=== PATIENT | male | born 1965 | race Caucasian/White ===

== ENCOUNTER 2020-11-06 12:55 | Inpatient (IN) | payer MEDICARE ==
[2020-11-06] VITALS (15 sets, daily range): BP systolic 73–143; BP diastolic 53–103
[~2020-11-06] VITALS: Ht 182.9 cm; Wt 71.8 kg
[2020-11-06] MEDS: MIDAZOLAM 100mg/100ml NS BAG 100 ML IV PRN (13:53)
[2020-11-06] MEDS: PROPOFOL 100 ML IV PRN (13:54)
--- NOTE | 2020-11-06 17:11 | PDOC1 ---
History and Physical Date of Service: DOS: DATE: 11/06/20 TIME: 17:02 Chief Complaint: Chief Complain: Shortness of breath History of Present Illness: HPI: Patient is a 55-year-old male with past medical history of tobacco abuse, schizophrenia, alcohol abuse who presents to [facility] in [place] with shortness of breath. He was worked up at the emergency department and was found to have a sodium of 115. He was admitted for further treatments for breathing, IV antibiotics, and IV fluids. I was paged over the transfer line and had a 1-[address] Brown and stated that the patient needs for ICU care with a bench worker helper mainly due to worsening respiratory failure. Patient was on a nonrebreather and desaturating and required to be on BiPAP. ABG was obtained and showed that his pH was 7.19 and PCO2 was 113 on nonrebreather. Patient was becoming more lethargic and was needed to be intubated. Patient did arrive intubated not on any pressors and sedated on fentanyl and propofol. Reviewed labs that were done at [facility] showed sodium of 132, potassium 4.1, chloride of 94, CO2 of 37, BUN of 5, creatinine of 0.3, WBC of 11,000. Past Medical/Surgical History: PMH/PSH: Schizophrenia, tobacco abuse and alcohol abuse. Allergies: Allergies: Coded Allergies: No Known Drug Allergies (Unverified , 11/06/20) Family History: Family History: Unobtainable due to sedation and intubated Social History: Social History: Patient says he drinks about 3-4 beers a night and 2 shots of whiskey. Smokes daily about 2 packs/day. Patient does have withdrawals if he does not smoke. Current Medications: Current Medications Current Medications Fentanyl Citrate 30 ml @ 0 mls/hr CONT PRN IV SEE PROTOCOL Last administered on 11/06/20at 13:59; Start 11/06/20 at 13:45 Propofol 100 ml @ 0 mls/hr CONT PRN IV PER PROTOCOL Last administered on 11/06/20at 13:54; Start 11/06/20 at 13:45 Midazolam HCl 100 ml @ 0 mls/hr CONT PRN IV SEE PROTOCOL Last administered on 11/06/20at 13:53; Start 11/06/20 at 14:00 ROS: Review of Systems Review of System REVIEW OF SYSTEMS: GENERAL: Denies weakness SKIN: No bruising, hair changes or rashes. EYES: No blurred, double or loss of vision. NOSE AND THROAT: No history of nosebleeds, hoarseness or sore throat. HEART: No history of palpitations, chest pain or shortness of breath on exertion. LUNGS: Denies cough, hemoptysis, wheezing or shortness of breath. GASTROINTESTINAL: Denies changes in appetite, nausea, vomiting, diarrhea or constipation. GENITOURINARY: No history of frequency, urgency, hesitancy or nocturia. NEUROLOGIC: Denies history of numbness, tingling, or tremor. PSYCHIATRIC: No history of panic, anxiety or depression. ENDOCRINE: No history of heat or cold intolerance, polyuria or polydipsia. EXTREMITIES: Denies joint pain, pain on walking or stiffness. Physical Exam: Vital Signs: Vital Signs Date Time Temp Pulse Resp B/P (MAP) Pulse Ox O2 Delivery O2 Flow Rate FiO2 11/06/20 16:00 99.1 82 20 115/84 (94) 100 Ventilator 99.1 Physcial Exam: GEN: No apparent distress. Alert and oriented HEENT: Normal cephalic, atraumatic, external auditory canals are patent EYES: Extraocular muscles are intact, pupil are equally round and reactive to light and accommodation MUSCULOSKELETAL: Well developed , well nourished, good range of motion ENDOCRINE: No thyromegaly was palpated LYMPHATICS: No cervical chain or axillary nodes were noted HEMATOPOIETIC: No bruising NECK: Supple, no JVD, no thyromegaly was noted LUNGS: Clear to auscultation in all lung gotti without rhonchi or wheezing HEART: RRR, S!, S2 present. Peripheral pulses intact, no obvious murmurs noted ABDOMEN: Soft, nontender. Positive bowel sounds, no organomegaly, normal bowel sounds EXTREMITIES: Without clubbing, cyanosis, or edema. Pedal pulses intact. Negative Homans sign NEUROLOGIC: Normal speech and tone. A&O x 3, moves all extremities, no obvious focal deficits PSYCHIATRIC: Normal affect, normal mood. Stable SKIN: No ulcerations or rashes, good skin turgor, no jaundice VASCULAR: Good capillary refill, neurovascular bundle appears to be intact Labs: Labs: Reviewed in chart Images: Images CXR Impression: 1. No acute cardiopulmonary process. Negative chest CTA on 11/04/[address] on 11/04/2020 Assessment/Plan Assessment/Plan Acute hypoxic hypercapnic respiratory failure requiring intubation and sedation Acute electrolyte derangementhyponatremia improved from 115-132 Acute encephalopathy NOS Admit to ICU for further management Pulmonary consult for vent management Continue IV fluids Daily SBT trials if able CIWA protocol for concerns of alcohol withdrawal Lovenox for DVT prophylaxis Protonix GI prophylaxis N.p.o. Full code Discussed with RN and SW Disposition continue ICU care Surrogate decision maker is unknown A total of 65 minutes of critical care time was spent in reviewing chart, labs, and images. Discussed with RN and SW. Justifications for Admission Other Justification TOREY STAFFORD MD Nov 06, 2020 17:11
[2020-11-06] MEDS ORDERED: PIP/TAZO PER PHARMACY MC PRN (18:00)
--- NOTE | 2020-11-06 18:05 | CONS ---
DATE OF CONSULTATION: PULMONARY CONSULTATION ATTENDING PHYSICIAN: Francisco Coker MD. REASON FOR CONSULTATION: Respiratory failure. HISTORY OF PRESENT ILLNESS: The patient is a 55-year-old male with past medical history of heavy tobacco use up to 2 packs per day, schizophrenia, alcohol abuse, who drinks regularly. He initially presented to [facility] in [place] with reports of falling at home. He even hit his head. His CT head was negative there. He was noted to have a sodium of 115. The patient was treated with IV antibiotics and IV fluids. It did result in improvement in his sodium. However, today, he was noted to have progressive dyspnea and tachycardia. The patient was noted to have worsening arterial blood gases with a pH of 7.19, pCO2 of 113, on a nonrebreather mask. Bicarbonate level was 43. PO2 was 103. He was intubated and transferred to our facility in the ICU. I have done the consultation via telemedicine. He is currently intubated and sedated. His blood pressure has been labile between high to low. Propofol was initially initiated, but was stopped due to low blood pressure. I have reviewed his chest x-ray from [facility], which was consistent with hyperinflation and COPD. He had a CTA chest, no evidence of pulmonary embolism, but there were faint infiltrates seen on the right lower lobe. PAST MEDICAL HISTORY: Significant for schizophrenia, history of tobacco abuse, likely COPD and alcohol abuse. PAST SURGICAL HISTORY: No recent surgery. ALLERGIES: None. FAMILY HISTORY: Unobtainable. SOCIAL HISTORY: Drinks about 3-4 beers a night and 2 shots of whiskey. Smokes 2 packs of cigarettes a day. MEDICATIONS: Reviewed as listed in the MRAD. REVIEW OF SYSTEMS: Unable to obtain from the patient. PHYSICAL EXAMINATION: GENERAL: He is intubated and sedated. Exam was done via telemedicine. VITAL SIGNS: His blood pressure is currently 115 systolic, T-max of 99.1. Pulse ox is 99%. He is in sync with the ventilator. No obvious paradoxical breathing. SKIN: No skin rash. LABORATORY DATA: From [place] revealed sodium of 132, potassium 4.1, chloride 94, BUN 5, creatinine 0.3, bicarbonate of 37. AST, ALT normal. White cell count 11.1, hemoglobin 14.1, platelets results were not available. IMPRESSION: 1. Ljikq-ns-vzpqecm hypercapnic respiratory failure secondary to multifactorial etiologies including acute toxic encephalopathy, worsening chronic obstructive pulmonary disease with hypercapnia and likely contributed by hyponatremia. 2. Long history of tobacco use up to 2 packs per day. Has chronic hypercapnia, likely has severe chronic obstructive pulmonary disease. Chest x-ray has shown severely hyperinflated lungs. 3. Alcohol abuse and possibility of alcohol withdrawal would certainly be in the differential diagnosis. 4. Underlying schizophrenia. 5. Abnormal CT chest with faint patchy interstitial infiltrates in the right lower lobe. Likely aspiration pneumonia. He has a low-grade fever. We will cover with empiric antibiotics. 6. Hyponatremia, likely secondary to alcoholism. It did improve over a period of days. RECOMMENDATIONS: 1. We will continue with present assist control mode. Follow ABGs and make necessary adjustments. 2. Add empiric antibiotics. 3. We will order an echocardiogram. 4. Watch for alcohol withdrawal symptoms. 5. Continue sedation and p.r.n. narcotics. 6. The patient was COVID-19 negative at [facility]. 7. Follow sodium closely. 8. Enteral nutrition. 9. Stress ulcer prophylaxis. 10. DVT prophylaxis. 11. We will watch his respiratory status once his acid base status has improved and consider weaning trial when appropriate. 12. Discussed with RN and RT. We will follow along with you. Chart reviewed, labs reviewed, imaging studies reviewed. Critical care time 40 minutes. YANE AVILA MD DR: SOMMER/daryl JOB#: [id number] / [id number]
[2020-11-06] MEDS: PIPERACILLIN/TAZOBACTAM 3.375 GM in IV NORMAL SALINE 50ML 50 ML IV SCH ×2 (18:11→23:27)
[2020-11-06] MEDS: IV NORMAL SALINE 1000ML BAG 1,000 ML IV SCH (18:11)
--- NOTE | 2020-11-06 18:18 | RAD ---
EXAM: XR CHEST 1V 11/06/2020 2:21 PM CLINICAL INDICATION: ET tube placement COMPARISON: Chest radiograph 11/06/2020 TECHNIQUE: AP semiupright view of the chest FINDINGS: An endotracheal tube terminates approximately 7.5 cm above the yadira, similar to prior ex am. A new nasogastric tube courses below the diaphragm and terminates out of view. The heart and medi astinum are normal. Lungs are well-expanded and clear. No pleural effusion or pneumothorax. No acute osseous abnormality. IMPRESSION: New nasogastric tube courses below the diaphragm. Unchanged endotracheal tube. Electronically signed by: Daja Carpenter MD (11/06/2020 6:16 PM) [id number]
[2020-11-06] MEDS ORDERED: FAMOTIDINE 20 MG TABLET. PO SCH (21:00)
[2020-11-07] VITALS (23 sets, daily range): BP systolic 102–150; BP diastolic 65–96
[2020-11-07] MEDS: MIDAZOLAM 100mg/100ml NS BAG 100 ML IV PRN ×3 (00:45→22:33)
--- NOTE | 2020-11-07 04:25 | RAD ---
EXAM: AP View of the chest DATE: 11/07/2020 4:05 AM INDICATION: Dyspnea, respiratory failure COMPARISON: 11/06/2020 FINDINGS: ET tube tip terminates approximately 4 cm above the yadira. Enteric tube extends beyond the diaphragm tip is not visualized. Heart is not enlarged. Aorta is tortuous. Left lung base airspace likely consolidative process such a s pneumonia, progressed compared to 11/06/2020. Small left pleural effusion. No pneumothorax. IMPRESSION: Left lung base airspace opacities likely consolidative process such as pneumonia. Small left pleural effusion. Electronically signed by: Dewey Hernandez MD (11/07/2020 4:23 AM) RICHY
[2020-11-07] MEDS: PIPERACILLIN/TAZOBACTAM 3.375 GM in IV NORMAL SALINE 50ML 50 ML IV SCH ×4 (06:13→23:48)
[2020-11-07 07:07] LABS: BASO % 0 % (0-3); EOS # 0.1 x10^3/uL (0.0-0.7); EOS % 1 % (0-3); HEMATOCRIT 37.3 % (39.0-53.0); HEMOGLOBIN 12.2 g/dL (13.0-17.5); LYMPH % 10 % (24-48); MEAN CORPUSCULAR HEMOGLOBIN 32 pg (25-35); MEAN CORPUSCULAR HGB CONC 33 g/dL (31-37); MEAN CORPUSCULAR VOLUME 98 fL (79-100); MONO % 18 % (0-9); NEUT # 7.6 x10^3/uL (1.8-7.7); NEUT % 71 % (31-73); PLATELET COUNT 197 x10^3/uL (140-400); RED BLOOD COUNT 3.82 x10^6/uL (4.30-5.70); RED CELL DISTRIBUTION WIDTH 12.8 % (11.5-14.5); WHITE BLOOD COUNT 10.8 x10^3/uL (4.0-11.0)
[2020-11-07 07:20] LABS: ALBUMIN 2.1 g/dL (3.4-5.0); ALBUMIN/GLOBULIN RATIO 0.8 (1.0-1.7); CALCIUM 7.9 mg/dL (8.5-10.1); CREATININE 0.4 mg/dL (0.7-1.3); GFR 222.5; POTASSIUM 3.4 mmol/L (3.5-5.1); TOTAL BILIRUBIN 0.7 mg/dL (0.2-1.0); TOTAL PROTEIN 4.8 g/dL (6.4-8.2)
[2020-11-07] MEDS: IV NORMAL SALINE 1000ML BAG 1,000 ML IV SCH ×3 (07:20→22:30)
[2020-11-07 07:57] LABS: BASE EXCESS ABG 3 mmol/L (-3-3); HCO3 ABG 30 mmol/L (21-28); PCO2 ABG 56 mmHg (35-46); PO2 ABG 87 mmHg (75-108); SAT O2 ABG 96 % (92-99)
[2020-11-07 07:59] LABS: FIO2 ABG 70
[2020-11-07 09:11] LABS: % BANDS 3 % (0-9); % LYMPHS 9 % (24-48); % MONOS 5 % (0-10); % SEGS 83 % (35-66)
[2020-11-07 09:12] LABS: PLT ESTIMATE ADEQUATE (ADEQUATE)
[2020-11-07] MEDS: PROPOFOL 100 ML IV PRN (10:08)
--- NOTE | 2020-11-07 10:52 | PDOC ---
[employer] PROGRESS NOTE Date of Service DOS: DATE: 11/07/20 TIME: 10:51 Chief Complaint Chief Complaint Acute hypoxic hypercapnic respiratory failure requiring intubation and sedation COPD Hyponatremia Acute encephalopathy NOS Schizophrenia Tobacco abuse Alcohol abuse History of Present Illness History of Present Illness 11/07/2020 Patient seen and examined in the ICU He is intubated AC/16/500/70 percent with 5 of PEEP He is in mitts for his own safety He has a Shi to bedside drainage On IV Zosyn Sedated with Versed fentanyl and propofol Chart reviewed Discussed with RN Discussed with case management He is critically ill Vitals/I&O Vitals/I&O: Vital Signs Date Time Temp Pulse Resp B/P (MAP) Pulse Ox O2 Delivery O2 Flow Rate FiO2 11/07/20 10:00 69 16 126/87 (100) 100 Ventilator 11/07/20 08:00 98.1 98.1 I & O 11/06/20 11/06/20 11/07/20 15:00 23:00 07:00 Intake Total 0 ml 716.64 ml 2025.8 ml Output Total 100 ml 715 ml 165 ml Balance -100 ml 1.64 ml 1860.8 ml Physical Exam General: Other (Sedated intubated) Heart: Other (Tachycardic) Lungs: Wheezing, Crackles Abdomen: Soft Extremities: No clubbing, Other (He has mitts on) Skin: No rashes Labs Labs: Laboratory Tests Test 11/07/20 06:45 11/07/20 07:40 White Blood Count 10.8 x10^3/uL (4.0-11.0) Red Blood Count 3.82 x10^6/uL (4.30-5.70) Hemoglobin 12.2 g/dL (13.0-17.5) Hematocrit 37.3 % (39.0-53.0) Mean Corpuscular Volume 98 fL (79-100) Mean Corpuscular Hemoglobin 32 pg (25-35) Mean Corpuscular Hemoglobin Concent 33 g/dL (31-37) Red Cell Distribution Width 12.8 % (11.5-14.5) Platelet Count 197 x10^3/uL (140-400) Neutrophils (%) (Auto) 71 % (31-73) Lymphocytes (%) (Auto) 10 % (24-48) Monocytes (%) (Auto) 18 % (0-9) Eosinophils (%) (Auto) 1 % (0-3) Basophils (%) (Auto) 0 % (0-3) Neutrophils # (Auto) 7.6 x10^3/uL (1.8-7.7) Lymphocytes # (Auto) 1.0 x10^3/uL (1.0-4.8) Monocytes # (Auto) 2.0 x10^3/uL (0.0-1.1) Eosinophils # (Auto) 0.1 x10^3/uL (0.0-0.7) Basophils # (Auto) 0.0 x10^3/uL (0.0-0.2) Segmented Neutrophils % 83 % (35-66) Band Neutrophils % 3 % (0-9) Lymphocytes % 9 % (24-48) Monocytes % 5 % (0-10) Platelet Estimate Adequate (ADEQUATE) Sodium Level 136 mmol/L (136-145) Potassium Level 3.4 mmol/L (3.5-5.1) Chloride Level 100 mmol/L (98-107) Carbon Dioxide Level 34 mmol/L (21-32) Anion Gap 2 (6-14) Blood Urea Nitrogen 9 mg/dL (8-26) Creatinine 0.4 mg/dL (0.7-1.3) Estimated GFR (Cockcroft-Gault) 222.5 BUN/Creatinine Ratio 23 (6-20) Glucose Level 89 mg/dL (70-99) Calcium Level 7.9 mg/dL (8.5-10.1) Total Bilirubin 0.7 mg/dL (0.2-1.0) Aspartate Amino Transf (AST/SGOT) 22 U/L (15-37) Alanine Aminotransferase (ALT/SGPT) 17 U/L (16-63) Alkaline Phosphatase 45 U/L (46-116) Total Protein 4.8 g/dL (6.4-8.2) Albumin 2.1 g/dL (3.4-5.0) Albumin/Globulin Ratio 0.8 (1.0-1.7) Amylase Level 22 U/L (25-115) Lipase 30 U/L (73-393) O2 Saturation 96 % (92-99) Arterial Blood pH 7.35 (7.35-7.45) Arterial Blood pCO2 at Patient Temp 56 mmHg (35-46) Arterial Blood pO2 at Patient Temp 87 mmHg (75-108) Arterial Blood HCO3 30 mmol/L (21-28) Arterial Blood Base Excess 3 mmol/L (-3-3) FiO2 70 Review of Systems Review of Systems: Unable to obtain he is intubated Assessment and Plan Assessmemt and Plan Acute hypoxic hypercapnic respiratory failure requiring intubation and sedation COPD Hyponatremia Acute encephalopathy NOS Tobacco abuse Schizophrenia Plan ICU monitoring Vent weaning IV antibiotics Duo nebs IV steroids CIWA protocol DVT prophylaxis Home meds GI prophylaxis with Protonix He is critically ill Appreciate pulmonary input CC time 31 minutes Per pulmonary recommendations please see the following; 1. Zjguz-ej-ooramun hypercapnic respiratory failure secondary to multifactorial etiologies including acute toxic encephalopathy, worsening chronic obstructive pulmonary disease with hypercapnia and likely contributed by hyponatremia. 2. Long history of tobacco use up to 2 packs per day. Has chronic hypercapnia, likely has severe chronic obstructive pulmonary disease. Chest x-ray has shown severely hyperinflated lungs. 3. Alcohol abuse and possibility of alcohol withdrawal would certainly be in the differential diagnosis. 4. Underlying schizophrenia. 5. Abnormal CT chest with faint patchy interstitial infiltrates in the right lower lobe. Likely aspiration pneumonia. He has a low-grade fever. We will cover with empiric antibiotics. 6. Hyponatremia, likely secondary to alcoholism. It did improve over a period of days. RECOMMENDATIONS: 1. We will continue with present assist control mode. Follow ABGs and make necessary adjustments. 2. Add empiric antibiotics. 3. We will order an echocardiogram. 4. Watch for alcohol withdrawal symptoms. 5. Continue sedation and p.r.n. narcotics. 6. The patient was COVID-19 negative at [facility]. 7. Follow sodium closely. 8. Enteral nutrition. 9. Stress ulcer prophylaxis. 10. DVT prophylaxis. 11. We will watch his respiratory status once his acid base status has improved and consider weaning trial when appropriate. 12. Discussed with RN and RT. We will follow along with you. Chart reviewed, labs reviewed, imaging studies reviewed. Comment Review of Relevant I have reviewed the following items kye (where applicable) has been applied. Medications: Current Medications Medications (Trade) Dose Ordered Sig/Jean Carlos Route PRN Reason Start Time Stop Time Status Last Admin Dose Admin Fentanyl Citrate 30 ml @ 0 mls/hr CONT PRN IV SEE PROTOCOL 11/06/20 13:45 11/07/20 09:17 Propofol 100 ml @ 0 mls/hr CONT PRN IV PER PROTOCOL 11/06/20 13:45 11/07/20 10:08 Midazolam HCl 100 ml @ 0 mls/hr CONT PRN IV SEE PROTOCOL 11/06/20 14:00 11/07/20 00:45 Famotidine (Pepcid) 20 mg QHS PO 11/06/20 21:00 11/06/20 23:11 Sodium Chloride 1,000 ml @ 75 mls/hr [id number] IV 11/06/20 18:00 11/06/20 18:11 Piperacillin Sod/ Tazobactam Sod 3.375 gm/Sodium Chloride 50 ml @ 100 mls/hr Q6HRS IV 11/06/20 18:00 11/07/20 06:13 Justifications for Admission Other Justification NIKKO BROWN III DO Nov 07, 2020 10:51
--- NOTE | 2020-11-07 11:35 | PDOC ---
PULMONARY PROGRESS NOTES DATE: 11/07/20 TIME: 11:28 Subjective pt. is sedated on Vent A/C mode : 70% and PEEP 5 no overnight concerns Vitals Vital Signs Date Time Temp Pulse Resp B/P (MAP) Pulse Ox O2 Delivery O2 Flow Rate FiO2 11/07/20 10:00 69 16 126/87 (100) 100 Ventilator 11/07/20 08:00 98.1 98.1 Comments intubated/sedated Lungs: Clear Cardiovascular: S1 Abdomen: Soft, Non-tender Extremities: No Edema Skin: Warm Labs Laboratory Tests Test 11/07/20 06:45 11/07/20 07:40 White Blood Count 10.8 x10^3/uL (4.0-11.0) Red Blood Count 3.82 x10^6/uL (4.30-5.70) Hemoglobin 12.2 g/dL (13.0-17.5) Hematocrit 37.3 % (39.0-53.0) Mean Corpuscular Volume 98 fL (79-100) Mean Corpuscular Hemoglobin 32 pg (25-35) Mean Corpuscular Hemoglobin Concent 33 g/dL (31-37) Red Cell Distribution Width 12.8 % (11.5-14.5) Platelet Count 197 x10^3/uL (140-400) Neutrophils (%) (Auto) 71 % (31-73) Lymphocytes (%) (Auto) 10 % (24-48) Monocytes (%) (Auto) 18 % (0-9) Eosinophils (%) (Auto) 1 % (0-3) Basophils (%) (Auto) 0 % (0-3) Neutrophils # (Auto) 7.6 x10^3/uL (1.8-7.7) Lymphocytes # (Auto) 1.0 x10^3/uL (1.0-4.8) Monocytes # (Auto) 2.0 x10^3/uL (0.0-1.1) Eosinophils # (Auto) 0.1 x10^3/uL (0.0-0.7) Basophils # (Auto) 0.0 x10^3/uL (0.0-0.2) Segmented Neutrophils % 83 % (35-66) Band Neutrophils % 3 % (0-9) Lymphocytes % 9 % (24-48) Monocytes % 5 % (0-10) Platelet Estimate Adequate (ADEQUATE) Sodium Level 136 mmol/L (136-145) Potassium Level 3.4 mmol/L (3.5-5.1) Chloride Level 100 mmol/L (98-107) Carbon Dioxide Level 34 mmol/L (21-32) Anion Gap 2 (6-14) Blood Urea Nitrogen 9 mg/dL (8-26) Creatinine 0.4 mg/dL (0.7-1.3) Estimated GFR (Cockcroft-Gault) 222.5 BUN/Creatinine Ratio 23 (6-20) Glucose Level 89 mg/dL (70-99) Calcium Level 7.9 mg/dL (8.5-10.1) Total Bilirubin 0.7 mg/dL (0.2-1.0) Aspartate Amino Transf (AST/SGOT) 22 U/L (15-37) Alanine Aminotransferase (ALT/SGPT) 17 U/L (16-63) Alkaline Phosphatase 45 U/L (46-116) Total Protein 4.8 g/dL (6.4-8.2) Albumin 2.1 g/dL (3.4-5.0) Albumin/Globulin Ratio 0.8 (1.0-1.7) Amylase Level 22 U/L (25-115) Lipase 30 U/L (73-393) O2 Saturation 96 % (92-99) Arterial Blood pH 7.35 (7.35-7.45) Arterial Blood pCO2 at Patient Temp 56 mmHg (35-46) Arterial Blood pO2 at Patient Temp 87 mmHg (75-108) Arterial Blood HCO3 30 mmol/L (21-28) Arterial Blood Base Excess 3 mmol/L (-3-3) FiO2 70 Laboratory Tests Test 11/07/20 06:45 11/07/20 07:40 White Blood Count 10.8 x10^3/uL (4.0-11.0) Red Blood Count 3.82 x10^6/uL (4.30-5.70) Hemoglobin 12.2 g/dL (13.0-17.5) Hematocrit 37.3 % (39.0-53.0) Mean Corpuscular Volume 98 fL (79-100) Mean Corpuscular Hemoglobin 32 pg (25-35) Mean Corpuscular Hemoglobin Concent 33 g/dL (31-37) Red Cell Distribution Width 12.8 % (11.5-14.5) Platelet Count 197 x10^3/uL (140-400) Neutrophils (%) (Auto) 71 % (31-73) Lymphocytes (%) (Auto) 10 % (24-48) Monocytes (%) (Auto) 18 % (0-9) Eosinophils (%) (Auto) 1 % (0-3) Basophils (%) (Auto) 0 % (0-3) Neutrophils # (Auto) 7.6 x10^3/uL (1.8-7.7) Lymphocytes # (Auto) 1.0 x10^3/uL (1.0-4.8) Monocytes # (Auto) 2.0 x10^3/uL (0.0-1.1) Eosinophils # (Auto) 0.1 x10^3/uL (0.0-0.7) Basophils # (Auto) 0.0 x10^3/uL (0.0-0.2) Segmented Neutrophils % 83 % (35-66) Band Neutrophils % 3 % (0-9) Lymphocytes % 9 % (24-48) Monocytes % 5 % (0-10) Platelet Estimate Adequate (ADEQUATE) Sodium Level 136 mmol/L (136-145) Potassium Level 3.4 mmol/L (3.5-5.1) Chloride Level 100 mmol/L (98-107) Carbon Dioxide Level 34 mmol/L (21-32) Anion Gap 2 (6-14) Blood Urea Nitrogen 9 mg/dL (8-26) Creatinine 0.4 mg/dL (0.7-1.3) Estimated GFR (Cockcroft-Gault) 222.5 BUN/Creatinine Ratio 23 (6-20) Glucose Level 89 mg/dL (70-99) Calcium Level 7.9 mg/dL (8.5-10.1) Total Bilirubin 0.7 mg/dL (0.2-1.0) Aspartate Amino Transf (AST/SGOT) 22 U/L (15-37) Alanine Aminotransferase (ALT/SGPT) 17 U/L (16-63) Alkaline Phosphatase 45 U/L (46-116) Total Protein 4.8 g/dL (6.4-8.2) Albumin 2.1 g/dL (3.4-5.0) Albumin/Globulin Ratio 0.8 (1.0-1.7) Amylase Level 22 U/L (25-115) Lipase 30 U/L (73-393) O2 Saturation 96 % (92-99) Arterial Blood pH 7.35 (7.35-7.45) Arterial Blood pCO2 at Patient Temp 56 mmHg (35-46) Arterial Blood pO2 at Patient Temp 87 mmHg (75-108) Arterial Blood HCO3 30 mmol/L (21-28) Arterial Blood Base Excess 3 mmol/L (-3-3) FiO2 70 Comments CXR IMPRESSION: Left lung base airspace opacities likely consolidative process such as pneumonia. Small left pleural effusion. Impression . IMPRESSION: 1. Jhqaz-hw-iwbgany hypercapnic respiratory failure secondary to multifactorial etiologies including acute toxic encephalopathy, worsening chronic obstructive pulmonary disease with hypercapnia and likely contributed by hyponatremia. 2. Long history of tobacco use up to 2 packs per day. Has chronic hypercapnia, likely has severe chronic obstructive pulmonary disease. Chest x-ray has shown severely hyperinflated lungs. 3. Alcohol abuse and possibility of alcohol withdrawal would certainly be in the differential diagnosis. 4. Underlying schizophrenia. 5. Abnormal CT chest with faint patchy interstitial infiltrates in the right lower lobe. Likely aspiration pneumonia. He has a low-grade fever. We will cover with empiric antibiotics. 6. Hyponatremia, likely secondary to alcoholism. It did improve over a period of days. Plan . RECOMMENDATIONS: Continue Vent support Fi02 70% and PEEP of 5 Follow CXR/ABG -- reduce Fi02 to 60% Continue zosyn Await Echo results CIWA protocol once off sedation Consult driver manager for TF recs DVT/GI PPX D/W RN and RT Critical Care Time [id number] YANE MOLINA MD Nov 07, 2020 11:35
--- NOTE | 2020-11-07 15:13 | NUR ---
SS following for discharge planning. SS reviewed pt chart and discussed with pt RN. Pt is from home with spouse and is currently on the vent at 70%. COVID19 negative. Pt on IV Zosyn. SS received request to contact pt's father, Sohan, . SS contacted pt's father and left voicemail. SS will continue to follow for discharge planning.
[2020-11-07] MEDS ORDERED: PALI117D IM (16:24)
[2020-11-07] MEDS: FAMOTIDINE 20 MG TABLET. PO SCH (21:16)
[2020-11-07] MEDS: ENOXAPARIN 40 MG/0.4 ML SYRINGE. SQ SCH (21:17)
[2020-11-08] VITALS (24 sets, daily range): BP systolic 102–164; BP diastolic 72–114
[2020-11-08] MEDS: PIPERACILLIN/TAZOBACTAM 3.375 GM in IV NORMAL SALINE 50ML 50 ML IV SCH ×4 (06:06→23:35)
[2020-11-08] MEDS: PROPOFOL 100 ML IV PRN ×2 (07:16→15:31)
[2020-11-08] MEDS: IV NORMAL SALINE 1000ML BAG 1,000 ML IV SCH ×2 (07:37→17:49)
[2020-11-08 08:54] LABS: BASE EXCESS ABG 2 mmol/L (-3-3); HCO3 ABG 28 mmol/L (21-28); PCO2 ABG 50 mmHg (35-46); PO2 ABG 130 mmHg (75-108); SAT O2 ABG 98 % (92-99)
--- NOTE | 2020-11-08 09:00 | PDOC ---
[facility] [facility] PROGRESS NOTE Date of Service DOS: DATE: 11/08/20 TIME: 08:59 Chief Complaint Chief Complaint Acute hypoxic hypercapnic respiratory failure requiring intubation and sedation COPD Hyponatremia Acute encephalopathy NOS Schizophrenia Tobacco abuse Alcohol abuse History of Present Illness History of Present Illness 11/08/2020 Patient seen and examined in the ICU He remains ventilated Assist-control/16/500 with 60% FiO2 and 5 of PEEP Sedated with propofol Versed and fentanyl Has NG feed running Discussed with RN Chart reviewed He remains critically ill 11/07/2020 Patient seen and examined in the ICU He is intubated AC/16/500/70 percent with 5 of PEEP He is in mitts for his own safety He has a Shi to bedside drainage On IV Zosyn Sedated with Versed fentanyl and propofol Chart reviewed Discussed with RN Discussed with case management He is critically ill Vitals/I&O Vitals/I&O: Vital Signs Date Time Temp Pulse Resp B/P (MAP) Pulse Ox O2 Delivery O2 Flow Rate FiO2 11/08/20 08:38 100 Ventilator 11/08/20 06:00 66 16 155/104 (121) 11/08/20 04:00 98.8 98.8 I & O 11/07/20 11/07/20 11/08/20 15:00 23:00 07:00 Intake Total 150 ml 1482.35 ml 2478.1 ml Output Total 80 ml 540 ml 235 ml Balance 70 ml 942.35 ml 2243.1 ml Physical Exam General: Other (Sedated intubated) Heart: Other (Tachycardic) Lungs: Clear Abdomen: Soft Extremities: No clubbing, Other (He has mitts on) Skin: No rashes Assessment and Plan Assessmemt and Plan Acute hypoxic hypercapnic respiratory failure requiring intubation and sedation COPD Hyponatremia Acute encephalopathy NOS Tobacco abuse Schizophrenia Plan ICU monitoring Vent weaning IV antibiotics NG feeds Continue sedation with propofol and Versed Duo nebs IV steroids CIWA protocol DVT prophylaxis Home meds GI prophylaxis with Protonix He remains critically ill Appreciate pulmonary input CC time 33 minutes Per pulmonary recommendations from yesterday please see the following; 1. [id number] hypercapnic respiratory failure secondary to multifactorial etiologies including acute toxic encephalopathy, worsening chronic obstructive pulmonary disease with hypercapnia and likely contributed by hyponatremia. 2. Long history of tobacco use up to 2 packs per day. Has chronic hypercapnia, likely has severe chronic obstructive pulmonary disease. Chest x-ray has shown severely hyperinflated lungs. 3. Alcohol abuse and possibility of alcohol withdrawal would certainly be in the differential diagnosis. 4. Underlying schizophrenia. 5. Abnormal CT chest with faint patchy interstitial infiltrates in the right lower lobe. Likely aspiration pneumonia. He has a low-grade fever. We will cover with empiric antibiotics. 6. Hyponatremia, likely secondary to alcoholism. It did improve over a period of days. RECOMMENDATIONS: 1. We will continue with present assist control mode. Follow ABGs and make necessary adjustments. 2. Add empiric antibiotics. 3. We will order an echocardiogram. 4. Watch for alcohol withdrawal symptoms. 5. Continue sedation and p.r.n. narcotics. 6. The patient was COVID-19 negative at [facility]. 7. Follow sodium closely. 8. Enteral nutrition. 9. Stress ulcer prophylaxis. 10. DVT prophylaxis. 11. We will watch his respiratory status once his acid base status has improved and consider weaning trial when appropriate. 12. Discussed with RN and RT. We will follow along with you. Chart reviewed, Comment Review of Relevant I have reviewed the following items kye (where applicable) has been applied. Medications: Current Medications Medications (Trade) Dose Ordered Sig/Jean Carlos Route PRN Reason Start Time Stop Time Status Last Admin Dose Admin Enoxaparin Sodium (Lovenox 40mg Syringe) 40 mg Q24H SQ 11/07/20 21:00 11/07/20 21:17 Famotidine (Pepcid) 20 mg BID PO 11/07/20 21:00 11/07/20 21:16 Justifications for Admission Other Justification NIKKO BROWN III DO Nov 08, 2020 09:00
[2020-11-08 09:20] LABS: FIO2 ABG 60
[2020-11-08] MEDS: FAMOTIDINE 20 MG TABLET. PO SCH ×2 (09:39→21:12)
[2020-11-08] MEDS: MIDAZOLAM 100mg/100ml NS BAG 100 ML IV PRN (09:41)
--- NOTE | 2020-11-08 10:55 | PDOC ---
PULMONARY PROGRESS NOTES DATE: 11/08/20 TIME: 10:53 Subjective pt. is sedated on Vent A/C mode : 50% and PEEP 5 Afebrile no overnight concerns Vitals Vital Signs Date Time Temp Pulse Resp B/P (MAP) Pulse Ox O2 Delivery O2 Flow Rate FiO2 11/08/20 10:00 62 22 120/84 (96) 100 Ventilator 11/08/20 08:00 98.1 98.1 Comments intubated/sedated Lungs: Clear Cardiovascular: S1 Abdomen: Soft, Non-tender Extremities: No Edema Skin: Warm Labs Laboratory Tests Test 11/07/20 06:45 11/07/20 07:40 11/08/20 08:40 White Blood Count 10.8 x10^3/uL (4.0-11.0) Red Blood Count 3.82 x10^6/uL (4.30-5.70) Hemoglobin 12.2 g/dL (13.0-17.5) Hematocrit 37.3 % (39.0-53.0) Mean Corpuscular Volume 98 fL (79-100) Mean Corpuscular Hemoglobin 32 pg (25-35) Mean Corpuscular Hemoglobin Concent 33 g/dL (31-37) Red Cell Distribution Width 12.8 % (11.5-14.5) Platelet Count 197 x10^3/uL (140-400) Neutrophils (%) (Auto) 71 % (31-73) Lymphocytes (%) (Auto) 10 % (24-48) Monocytes (%) (Auto) 18 % (0-9) Eosinophils (%) (Auto) 1 % (0-3) Basophils (%) (Auto) 0 % (0-3) Neutrophils # (Auto) 7.6 x10^3/uL (1.8-7.7) Lymphocytes # (Auto) 1.0 x10^3/uL (1.0-4.8) Monocytes # (Auto) 2.0 x10^3/uL (0.0-1.1) Eosinophils # (Auto) 0.1 x10^3/uL (0.0-0.7) Basophils # (Auto) 0.0 x10^3/uL (0.0-0.2) Segmented Neutrophils % 83 % (35-66) Band Neutrophils % 3 % (0-9) Lymphocytes % 9 % (24-48) Monocytes % 5 % (0-10) Platelet Estimate Adequate (ADEQUATE) Sodium Level 136 mmol/L (136-145) Potassium Level 3.4 mmol/L (3.5-5.1) Chloride Level 100 mmol/L (98-107) Carbon Dioxide Level 34 mmol/L (21-32) Anion Gap 2 (6-14) Blood Urea Nitrogen 9 mg/dL (8-26) Creatinine 0.4 mg/dL (0.7-1.3) Estimated GFR (Cockcroft-Gault) 222.5 BUN/Creatinine Ratio 23 (6-20) Glucose Level 89 mg/dL (70-99) Calcium Level 7.9 mg/dL (8.5-10.1) Total Bilirubin 0.7 mg/dL (0.2-1.0) Aspartate Amino Transf (AST/SGOT) 22 U/L (15-37) Alanine Aminotransferase (ALT/SGPT) 17 U/L (16-63) Alkaline Phosphatase 45 U/L (46-116) Total Protein 4.8 g/dL (6.4-8.2) Albumin 2.1 g/dL (3.4-5.0) Albumin/Globulin Ratio 0.8 (1.0-1.7) Amylase Level 22 U/L (25-115) Lipase 30 U/L (73-393) O2 Saturation 96 % (92-99) 98 % (92-99) Arterial Blood pH 7.35 (7.35-7.45) 7.36 (7.35-7.45) Arterial Blood pCO2 at Patient Temp 56 mmHg (35-46) 50 mmHg (35-46) Arterial Blood pO2 at Patient Temp 87 mmHg (75-108) 130 mmHg (75-108) Arterial Blood HCO3 30 mmol/L (21-28) 28 mmol/L (21-28) Arterial Blood Base Excess 3 mmol/L (-3-3) 2 mmol/L (-3-3) FiO2 70 60 Laboratory Tests Test 11/08/20 08:40 O2 Saturation 98 % (92-99) Arterial Blood pH 7.36 (7.35-7.45) Arterial Blood pCO2 at Patient Temp 50 mmHg (35-46) Arterial Blood pO2 at Patient Temp 130 mmHg (75-108) Arterial Blood HCO3 28 mmol/L (21-28) Arterial Blood Base Excess 2 mmol/L (-3-3) FiO2 60 Medications Active Scripts Medications Dose Route/Sig Max Daily Dose Days Date Category Invsolitario Sustenna (Paliperidone Palmitate) 117 Mg/0.75 Ml Disp.syrin 0 IM QMONTH 30 11/07/20 Reported Comments CXR IMPRESSION: Left lung base airspace opacities likely consolidative process such as pneumonia. Small left pleural effusion. Impression . IMPRESSION: 1. Wtrsd-xx-htvwusl hypercapnic respiratory failure secondary to multifactorial etiologies including acute toxic encephalopathy, worsening chronic obstructive pulmonary disease with hypercapnia and likely contributed by hyponatremia. 2. Long history of tobacco use up to 2 packs per day. Has chronic hypercapnia, likely has severe chronic obstructive pulmonary disease. Chest x-ray has shown severely hyperinflated lungs. 3. Alcohol abuse and possibility of alcohol withdrawal would certainly be in the differential diagnosis. 4. Underlying schizophrenia. 5. Abnormal CT chest with faint patchy interstitial infiltrates in the right lower lobe. Likely aspiration pneumonia. 6. Hyponatremia, likely secondary to alcoholism--resolved Plan . RECOMMENDATIONS: Continue Vent support Fi02 50% and PEEP of 5 Proceed with sedation vacation, anticipate pressure support trial in next 48 hours Follow CXR/ABG -- reduce Fi02 to 40% Continue zosyn for full course CIWA protocol once off sedation Consult rotoformer backtender for TF recs DVT/GI PPX D/W RN and RT Critical Care Time [id number] YANE MOLINA MD Nov 08, 2020 10:55
--- NOTE | 2020-11-08 10:57 | NUR ---
SS following up with discharge planning. SS reviewed pt chart and discussed with pt RN. Pt is currently on the vent at 50%. COVID19 negative. SS spoke with pt's father, Sohan, and answered questions about applying for Medicaid. Pt's father reported that he and pt's mother are pt's legal guardians. Pt's RN notified. SS will continue to follow for discharge planning.
[2020-11-08 12:31] LABS: CALCIUM 7.9 mg/dL (8.5-10.1); CREATININE 0.5 mg/dL (0.7-1.3); MAGNESIUM 1.5 mg/dL (1.8-2.4); POTASSIUM 3.4 mmol/L (3.5-5.1)
--- NOTE | 2020-11-08 14:27 | CARD ---
MR#: [id number] Date of Study: 11/08/2020 Ordering Physician: YANE AVILA, Referring Physician: YANE AVILA Tech: Sarah Day NKECHI APPROVED REPORT EXAM: Two-dimensional and M-mode echocardiogram with Doppler and color Doppler. Other Information Quality : Fair INDICATION Congestive Heart Failure 2D DIMENSIONS RVDd2.7 (2.9-3.5cm)Left Atrium(2D)2.3 (1.6-4.0cm) IVSd1.1 (0.7-1.1cm)Aortic Root(2D)3.2 (2.0-3.7cm) LVDd5.0 (3.9-5.9cm)LVOT Diameter2.0 (1.8-2.4cm) PWd1.0 (0.7-1.1cm)LVDs3.6 (2.5-4.0cm) FS (%) 27.7 %SV63.4 ml LVEF(%)53.4 (>50%) Aortic Valve AoV Peak Madi.110.5cm/sAoV VTI16.6cm AO Peak GR.4.9mmHgLVOT VTI 14.47cm AO Mean GR.3mmHgAVA (VTI)2.78cm2 Mitral Valve MV E Dnmljlsn83.6cm/sMV DECEL KGCW378mn MV A Ixkvomwd99.2cm/sE/A Ratio1.0 TDI Lateral E' P. V3.12cm/sMedial E' P. V6.53cm/s E/Lateral E'20.7E/Medial E'9.9 LEFT VENTRICLE The left ventricle is normal size. There is normal left ventricular wall thickness. Left ventricle sy stolic function is mildly impaired. EF 45% Septal motion consistent with conduction abnormality. Ther e is mild global hypokinesis. Tissue Doppler imaging reveals moderate left ventricular diastolic dysf unction. RIGHT VENTRICLE The right ventricle is normal size. The right ventricular systolic function is normal. ATRIA The left atrium size is normal. The right atrium size is normal. The interatrial septum is intact wit h no evidence for an atrial septal defect or patent foramen ovale as noted on 2-D or Doppler imaging. AORTIC VALVE The aortic valve is calcified but opens well. Doppler and Color Flow revealed no significant aortic r egurgitation. There is no significant aortic valvular stenosis. MITRAL VALVE The mitral valve is calcified but opens well. There is no evidence of mitral valve prolapse. There is no mitral valve stenosis. Doppler and Color Flow revealed no mitral valve regurgitation noted. TRICUSPID VALVE The tricuspid valve is normal in structure and function. Doppler and Color Flow revealed no tricuspid valve regurgitation noted. There is no tricuspid valve stenosis. PULMONIC VALVE The pulmonic valve is not well visualized. Doppler and Color Flow revealed no pulmonic valvular regur gitation. There is no pulmonic valvular stenosis. GREAT VESSELS The aortic root is normal in size. The ascending aorta is not well seen. The IVC is dilated and colla pses <50% with inspiration. PERICARDIAL EFFUSION There is no evidence of significant pericardial effusion. Critical Notification Critical Value: No <Conclusion> Left ventricle systolic function is mildly impaired. EF 45% Septal motion consistent with conduction abnormality. There is mild global hypokinesis. The IVC is dilated and collapses <50% with inspiration suggestive of right sided heart failure. Signed by : Sohail Roberts, Electronically Approved : 11/08/2020 14:26:31
[2020-11-08] MEDS ORDERED: POTASSIUM BICARB 20 MEQ EFFERVESCENT TABLET. FT ONE (14:30)
[2020-11-08] MEDS ORDERED: MAGNESIUM SULFATE 4GM 100 ML IV ONE (14:30)
[2020-11-08] MEDS: ENOXAPARIN 40 MG/0.4 ML SYRINGE. SQ SCH (21:12)
[2020-11-09] VITALS (23 sets, daily range): BP systolic 124–176; BP diastolic 79–122
[2020-11-09] MEDS: IV NORMAL SALINE 1000ML BAG 1,000 ML IV SCH ×3 (03:00→21:41)
[2020-11-09] MEDS: PROPOFOL 100 ML IV PRN ×4 (03:01→20:33)
[2020-11-09] MEDS: PIPERACILLIN/TAZOBACTAM 3.375 GM in IV NORMAL SALINE 50ML 50 ML IV SCH ×3 (05:31→17:09)
[2020-11-09 07:42] LABS: BASE EXCESS ABG 6 mmol/L (-3-3); HCO3 ABG 31 mmol/L (21-28); PCO2 ABG 49 mmHg (35-46); PO2 ABG 64 mmHg (75-108); SAT O2 ABG 93 % (92-99)
[2020-11-09] MEDS: FAMOTIDINE 20 MG TABLET. PO SCH ×2 (07:44→20:33)
[2020-11-09 07:46] LABS: FIO2 ABG 40/VENT
--- NOTE | 2020-11-09 08:25 | PDOC ---
PULMONARY PROGRESS NOTES DATE: 11/09/20 TIME: 08:25 Subjective pt. is sedated on Vent A/C mode : 40% and PEEP 5 Afebrile no overnight concerns Vitals Vital Signs Date Time Temp Pulse Resp B/P (MAP) Pulse Ox O2 Delivery O2 Flow Rate FiO2 11/09/20 07:36 95 Ventilator 11/09/20 07:00 83 16 142/94 (110) 11/09/20 04:00 98.8 98.8 Comments intubated/sedated Lungs: Clear Cardiovascular: S1 Abdomen: Soft, Non-tender Extremities: No Edema Skin: Warm Labs Laboratory Tests Test 11/08/20 08:40 11/08/20 12:00 11/09/20 07:30 O2 Saturation 98 % (92-99) 93 % (92-99) Arterial Blood pH 7.36 (7.35-7.45) 7.42 (7.35-7.45) Arterial Blood pCO2 at Patient Temp 50 mmHg (35-46) 49 mmHg (35-46) Arterial Blood pO2 at Patient Temp 130 mmHg (75-108) 64 mmHg (75-108) Arterial Blood HCO3 28 mmol/L (21-28) 31 mmol/L (21-28) Arterial Blood Base Excess 2 mmol/L (-3-3) 6 mmol/L (-3-3) FiO2 60 40/vent Sodium Level 140 mmol/L (136-145) Potassium Level 3.4 mmol/L (3.5-5.1) Chloride Level 104 mmol/L (98-107) Carbon Dioxide Level 31 mmol/L (21-32) Anion Gap 5 (6-14) Blood Urea Nitrogen 9 mg/dL (8-26) Creatinine 0.5 mg/dL (0.7-1.3) Estimated GFR (Cockcroft-Gault) 172.0 Glucose Level 127 mg/dL (70-99) Calcium Level 7.9 mg/dL (8.5-10.1) Magnesium Level 1.5 mg/dL (1.8-2.4) Laboratory Tests Test 11/08/20 08:40 11/08/20 12:00 11/09/20 07:30 O2 Saturation 98 % (92-99) 93 % (92-99) Arterial Blood pH 7.36 (7.35-7.45) 7.42 (7.35-7.45) Arterial Blood pCO2 at Patient Temp 50 mmHg (35-46) 49 mmHg (35-46) Arterial Blood pO2 at Patient Temp 130 mmHg (75-108) 64 mmHg (75-108) Arterial Blood HCO3 28 mmol/L (21-28) 31 mmol/L (21-28) Arterial Blood Base Excess 2 mmol/L (-3-3) 6 mmol/L (-3-3) FiO2 60 40/vent Sodium Level 140 mmol/L (136-145) Potassium Level 3.4 mmol/L (3.5-5.1) Chloride Level 104 mmol/L (98-107) Carbon Dioxide Level 31 mmol/L (21-32) Anion Gap 5 (6-14) Blood Urea Nitrogen 9 mg/dL (8-26) Creatinine 0.5 mg/dL (0.7-1.3) Estimated GFR (Cockcroft-Gault) 172.0 Glucose Level 127 mg/dL (70-99) Calcium Level 7.9 mg/dL (8.5-10.1) Magnesium Level 1.5 mg/dL (1.8-2.4) Medications Active Scripts Medications Dose Route/Sig Max Daily Dose Days Date Category Invega Sustenna (Paliperidone Palmitate) 117 Mg/0.75 Ml Disp.syrin 0 IM QMONTH 30 11/07/20 Reported Comments CXR IMPRESSION: Left lung base airspace opacities likely consolidative process such as pneumonia. Small left pleural effusion. Impression . IMPRESSION: 1. Dsjtd-yz-yeaxwva hypercapnic respiratory failure secondary to multifactorial etiologies including acute toxic encephalopathy, worsening chronic obstructive pulmonary disease with hypercapnia and likely contributed by hyponatremia. 2. Long history of tobacco use up to 2 packs per day. Has chronic hypercapnia, likely has severe chronic obstructive pulmonary disease. Chest x-ray has shown severely hyperinflated lungs. 3. Alcohol abuse and possibility of alcohol withdrawal would certainly be in the differential diagnosis. 4. Underlying schizophrenia. 5. Abnormal CT chest with faint patchy interstitial infiltrates in the right lower lobe. Likely aspiration pneumonia. 6. Hyponatremia, likely secondary to alcoholism--resolved Plan . RECOMMENDATIONS: Continue Vent support Fi02 40% and PEEP of 5 Proceed with sedation vacation, transition to Precedex Proceed with pressure support trial Follow CXR/ABG --no changes Continue zosyn for full course CIWA protocol once off sedation Continue tube feeding for nutritional support DVT/GI PPX D/W RN and RT Critical Care Time [id number] AM MAITE BARFIELD MD Nov 09, 2020 08:25
[2020-11-09] MEDS ORDERED: ATROPINE 0.5 MG/5 ML DISP.SYRINGE. IV PRN (09:45)
[2020-11-09] MEDS ORDERED: IV NORMAL SALINE 500ML BAG 500 ML IV PRN (09:45)
[2020-11-09] MEDS: DEXMEDETOMIDINE 400 MCG in IV NORMAL SALINE 100ML 96 ML IV PRN ×3 (10:40→21:40)
[2020-11-09 11:08] LABS: ALBUMIN 1.9 g/dL (3.4-5.0); ALBUMIN/GLOBULIN RATIO 0.6 (1.0-1.7); ALK PHOS 42 U/L (46-116); ALT (SGPT) 16 U/L (16-63); ANION GAP 3 (6-14); AST (SGOT) 15 U/L (15-37); BLOOD UREA NITROGEN 5 mg/dL (8-26); BUN/CREATININE RATIO 17 (6-20); CALCIUM 7.5 mg/dL (8.5-10.1); CARBON DIOXIDE 32 mmol/L (21-32); CHLORIDE 100 mmol/L (98-107); CREATININE 0.3 mg/dL (0.7-1.3); GFR > 300.0; GLUCOSE 115 mg/dL (70-99); POTASSIUM 3.1 mmol/L (3.5-5.1); SODIUM 135 mmol/L (136-145); TOTAL BILIRUBIN 0.4 mg/dL (0.2-1.0); TOTAL PROTEIN 5.1 g/dL (6.4-8.2)
--- NOTE | 2020-11-09 12:56 | PDOC ---
[employer] [facility] PROGRESS NOTE Date of Service DOS: DATE: 11/09/20 TIME: 12:54 Chief Complaint Chief Complaint Acute hypoxic hypercapnic respiratory failure requiring intubation and sedation COPD Hyponatremia Acute encephalopathy NOS Schizophrenia Tobacco abuse Alcohol abuse History of Present Illness History of Present Illness 11/09/2020 Patient seen and examined in the ICU His mother is present I discussed the case with her He remains ventilated and is sedated Assist-control/16/500/40 percent with 5 of PEEP He remains critically ill 11/08/2020 Patient seen and examined in the ICU He remains ventilated Assist-control/16/500 with 60% FiO2 and 5 of PEEP Sedated with propofol Versed and fentanyl Has NG feed running Discussed with RN Chart reviewed He remains critically ill 11/07/2020 Patient seen and examined in the ICU He is intubated AC/16/500/70 percent with 5 of PEEP He is in mitts for his own safety He has a Shi to bedside drainage On IV Zosyn Sedated with Versed fentanyl and propofol Chart reviewed Discussed with RN Discussed with case management He is critically ill Vitals/I&O Vitals/I&O: Vital Signs Date Time Temp Pulse Resp B/P (MAP) Pulse Ox O2 Delivery O2 Flow Rate FiO2 11/09/20 12:12 96 Ventilator 11/09/20 11:00 68 20 157/106 (123) 11/09/20 08:00 99.3 99.3 I & O 11/08/20 11/08/20 11/09/20 15:00 23:00 07:00 Intake Total 250 ml 2115 ml 2127.06 ml Output Total 175 ml 335 ml 460 ml Balance 75 ml 1780 ml 1667.06 ml Physical Exam General: Other (Sedated intubated) Heart: Other (Tachycardic) Lungs: Clear Abdomen: Soft Extremities: No clubbing, Other (He has mitts on) Skin: No rashes Labs Labs: Laboratory Tests Test 11/09/20 07:30 11/09/20 10:20 O2 Saturation 93 % (92-99) Arterial Blood pH 7.42 (7.35-7.45) Arterial Blood pCO2 at Patient Temp 49 mmHg (35-46) Arterial Blood pO2 at Patient Temp 64 mmHg (75-108) Arterial Blood HCO3 31 mmol/L (21-28) Arterial Blood Base Excess 6 mmol/L (-3-3) FiO2 40/vent Sodium Level 135 mmol/L (136-145) Potassium Level 3.1 mmol/L (3.5-5.1) Chloride Level 100 mmol/L (98-107) Carbon Dioxide Level 32 mmol/L (21-32) Anion Gap 3 (6-14) Blood Urea Nitrogen 5 mg/dL (8-26) Creatinine 0.3 mg/dL (0.7-1.3) Estimated GFR (Cockcroft-Gault) > 300.0 BUN/Creatinine Ratio 17 (6-20) Glucose Level 115 mg/dL (70-99) Calcium Level 7.5 mg/dL (8.5-10.1) Total Bilirubin 0.4 mg/dL (0.2-1.0) Aspartate Amino Transf (AST/SGOT) 15 U/L (15-37) Alanine Aminotransferase (ALT/SGPT) 16 U/L (16-63) Alkaline Phosphatase 42 U/L (46-116) Total Protein 5.1 g/dL (6.4-8.2) Albumin 1.9 g/dL (3.4-5.0) Albumin/Globulin Ratio 0.6 (1.0-1.7) Assessment and Plan Assessmemt and Plan Acute hypoxic hypercapnic respiratory failure requiring intubation and sedation COPD Hyponatremia Acute encephalopathy NOS Tobacco abuse Schizophrenia Plan ICU monitoring Vent weaning IV antibiotics NG feeds Continue sedation with propofol and Versed Duo nebs IV steroids CIWA protocol DVT prophylaxis Home meds GI prophylaxis with Protonix He remains critically ill Appreciate pulmonary input Prognosis extremely guarded CC time 31 minutes Comment Review of Relevant I have reviewed the following items kye (where applicable) has been applied. Medications: Current Medications Medications (Trade) Dose Ordered Sig/Jean Carlos Route PRN Reason Start Time Stop Time Status Last Admin Dose Admin Potassium Bicarbonate (Potassium Effervescent Tablet) 40 meq 1X ONCE FT 11/08/20 14:30 11/08/20 14:31 DC 11/08/20 13:55 Magnesium Sulfate 100 ml @ 50 mls/hr 1X ONCE IV 11/08/20 14:30 11/08/20 16:29 DC 11/08/20 14:01 Dexmedetomidine HCl 400 mcg/ Sodium Chloride 100 ml @ 0 mls/hr CONT PRN IV PER PROTOCOL 11/09/20 09:45 11/09/20 10:40 Justifications for Admission Other Justification CASTLE,NIAL K III DO Nov 09, 2020 12:56
[2020-11-09] MEDS ORDERED: HALOPERIDOL LACTATE 5 MG/ML VIAL. IVP SCH (14:00)
--- NOTE | 2020-11-09 16:25 | NUR ---
SS following up with discharge planning. SS reviewed pt chart and discussed with pt RN. Pt is currently on the vent at 40%. Pt on IV Zosyn. COVID19 negative. Not stable. SS will continue to follow for discharge planning.
[2020-11-09] MEDS ORDERED: POTASSIUM BICARB 20 MEQ EFFERVESCENT TABLET. PO ONE (16:30)
[2020-11-09] MEDS ORDERED: MAGNESIUM SULFATE 4GM 100 ML IV ONE (18:30)
[2020-11-09] MEDS: ENOXAPARIN 40 MG/0.4 ML SYRINGE. SQ SCH (20:34)
[2020-11-10] VITALS (24 sets, daily range): BP systolic 85–165; BP diastolic 56–113
[2020-11-10] MEDS: PIPERACILLIN/TAZOBACTAM 3.375 GM in IV NORMAL SALINE 50ML 50 ML IV SCH ×5 (00:10→23:48)
[2020-11-10] MEDS: DEXMEDETOMIDINE 400 MCG in IV NORMAL SALINE 100ML 96 ML IV PRN ×4 (03:50→21:40)
[2020-11-10] MEDS: IV NORMAL SALINE 1000ML BAG 1,000 ML IV SCH ×3 (05:03→17:34)
--- NOTE | 2020-11-10 06:11 | RAD ---
EXAM: AP View of the chest DATE: 11/10/2020 3:26 AM INDICATION: Reason: resp. failure/vent 116 / Spl. Instructions: / History: COMPARISON: 11/07/2020 11/06/2020 FINDINGS/ IMPRESSION: Enteric tube extends beyond the diaphragm, tip is not included in the [id number]. ET tube tip term inates approximately 6 cm above the yadira. Small left pleural effusion and left lung base airspace opacities are essentially unchanged. No right pleural effusion. No pneumothorax. Electronically signed by: Dewey Hernandez MD (11/10/2020 6:09 AM) RICHY
[2020-11-10 07:35] LABS: BASE EXCESS ABG 4 mmol/L (-3-3); HCO3 ABG 29 mmol/L (21-28); PCO2 ABG 43 mmHg (35-46); PO2 ABG 79 mmHg (75-108); SAT O2 ABG 96 % (92-99)
[2020-11-10 08:07] LABS: FIO2 ABG 40/VENT
--- NOTE | 2020-11-10 08:43 | PDOC ---
PULMONARY PROGRESS NOTES DATE: 11/10/20 TIME: 08:43 Subjective pt. is sedated on Vent A/C mode : 40% and PEEP 5 Afebrile no overnight concerns Vitals Vital Signs Date Time Temp Pulse Resp B/P (MAP) Pulse Ox O2 Delivery O2 Flow Rate FiO2 11/10/20 07:26 99 Ventilator 11/10/20 06:00 54 27 139/98 (112) 11/10/20 05:00 98.0 98.0 Comments intubated/sedated Lungs: Clear Cardiovascular: S1 Abdomen: Soft, Non-tender Extremities: No Edema Skin: Warm Labs Laboratory Tests Test 11/08/20 12:00 11/09/20 07:30 11/09/20 10:20 11/09/20 22:30 Sodium Level 140 mmol/L (136-145) 135 mmol/L (136-145) Potassium Level 3.4 mmol/L (3.5-5.1) 3.1 mmol/L (3.5-5.1) 3.6 mmol/L (3.5-5.1) Chloride Level 104 mmol/L (98-107) 100 mmol/L (98-107) Carbon Dioxide Level 31 mmol/L (21-32) 32 mmol/L (21-32) Anion Gap 5 (6-14) 3 (6-14) Blood Urea Nitrogen 9 mg/dL (8-26) 5 mg/dL (8-26) Creatinine 0.5 mg/dL (0.7-1.3) 0.3 mg/dL (0.7-1.3) Estimated GFR (Cockcroft-Gault) 172.0 > 300.0 Glucose Level 127 mg/dL (70-99) 115 mg/dL (70-99) Calcium Level 7.9 mg/dL (8.5-10.1) 7.5 mg/dL (8.5-10.1) Magnesium Level 1.5 mg/dL (1.8-2.4) 1.7 mg/dL (1.8-2.4) O2 Saturation 93 % (92-99) Arterial Blood pH 7.42 (7.35-7.45) Arterial Blood pCO2 at Patient Temp 49 mmHg (35-46) Arterial Blood pO2 at Patient Temp 64 mmHg (75-108) Arterial Blood HCO3 31 mmol/L (21-28) Arterial Blood Base Excess 6 mmol/L (-3-3) FiO2 40/vent BUN/Creatinine Ratio 17 (6-20) Total Bilirubin 0.4 mg/dL (0.2-1.0) Aspartate Amino Transf (AST/SGOT) 15 U/L (15-37) Alanine Aminotransferase (ALT/SGPT) 16 U/L (16-63) Alkaline Phosphatase 42 U/L (46-116) Total Protein 5.1 g/dL (6.4-8.2) Albumin 1.9 g/dL (3.4-5.0) Albumin/Globulin Ratio 0.6 (1.0-1.7) Test 11/10/20 07:15 O2 Saturation 96 % (92-99) Arterial Blood pH 7.45 (7.35-7.45) Arterial Blood pCO2 at Patient Temp 43 mmHg (35-46) Arterial Blood pO2 at Patient Temp 79 mmHg (75-108) Arterial Blood HCO3 29 mmol/L (21-28) Arterial Blood Base Excess 4 mmol/L (-3-3) FiO2 40/vent Laboratory Tests Test 11/09/20 10:20 11/09/20 22:30 11/10/20 07:15 Sodium Level 135 mmol/L (136-145) Potassium Level 3.1 mmol/L (3.5-5.1) 3.6 mmol/L (3.5-5.1) Chloride Level 100 mmol/L (98-107) Carbon Dioxide Level 32 mmol/L (21-32) Anion Gap 3 (6-14) Blood Urea Nitrogen 5 mg/dL (8-26) Creatinine 0.3 mg/dL (0.7-1.3) Estimated GFR (Cockcroft-Gault) > 300.0 BUN/Creatinine Ratio 17 (6-20) Glucose Level 115 mg/dL (70-99) Calcium Level 7.5 mg/dL (8.5-10.1) Magnesium Level 1.7 mg/dL (1.8-2.4) Total Bilirubin 0.4 mg/dL (0.2-1.0) Aspartate Amino Transf (AST/SGOT) 15 U/L (15-37) Alanine Aminotransferase (ALT/SGPT) 16 U/L (16-63) Alkaline Phosphatase 42 U/L (46-116) Total Protein 5.1 g/dL (6.4-8.2) Albumin 1.9 g/dL (3.4-5.0) Albumin/Globulin Ratio 0.6 (1.0-1.7) O2 Saturation 96 % (92-99) Arterial Blood pH 7.45 (7.35-7.45) Arterial Blood pCO2 at Patient Temp 43 mmHg (35-46) Arterial Blood pO2 at Patient Temp 79 mmHg (75-108) Arterial Blood HCO3 29 mmol/L (21-28) Arterial Blood Base Excess 4 mmol/L (-3-3) FiO2 40/vent Medications Active Scripts Medications Dose Route/Sig Max Daily Dose Days Date Category Invega Sustenna (Paliperidone Palmitate) 117 Mg/0.75 Ml Disp.syrin 0 IM QMONTH 30 11/07/20 Reported Comments CXR IMPRESSION: Left lung base airspace opacities likely consolidative process such as pneumonia. Small left pleural effusion. Impression . IMPRESSION: 1. Wbnjx-gb-[id number] hypercapnic respiratory failure secondary to multifactorial etiologies including acute toxic encephalopathy, worsening chronic obstructive pulmonary disease with hypercapnia and likely contributed by hyponatremia. 2. Long history of tobacco use up to 2 packs per day. Has chronic hypercapnia, likely has severe chronic obstructive pulmonary disease. Chest x-ray has shown severely hyperinflated lungs. 3. Alcohol abuse and possibility of alcohol withdrawal would certainly be in the differential diagnosis. 4. Underlying schizophrenia. 5. Abnormal CT chest with faint patchy interstitial infiltrates in the right lower lobe. Likely aspiration pneumonia. 6. Hyponatremia, likely secondary to alcoholism--resolved Plan . RECOMMENDATIONS: Continue Vent support Fi02 40% and PEEP of 5 Follow CXR/ABG --reduce FiO2 to 35% Continue zosyn for full course CIWA protocol once off sedation--- patient is approximately 3 days post last alcoholic drink, monitor closely for withdrawal symptoms Continue tube feeding for nutritional support DVT/GI PPX D/W RN and RT and patient's mom at bedside Critical Care Time [id number] AM MAITE BARFIELD MD Nov 10, 2020 08:43
[2020-11-10] MEDS: FAMOTIDINE 20 MG TABLET. PO SCH ×2 (09:00→21:25)
[2020-11-10 09:06] LABS: HEMATOCRIT 37.1 % (39.0-53.0); HEMOGLOBIN 12.2 g/dL (13.0-17.5); RED BLOOD COUNT 3.83 x10^6/uL (4.30-5.70); RED CELL DISTRIBUTION WIDTH 12.9 % (11.5-14.5); WHITE BLOOD COUNT 13.5 x10^3/uL (4.0-11.0)
[2020-11-10 09:43] LABS: ALBUMIN 1.8 g/dL (3.4-5.0); ALBUMIN/GLOBULIN RATIO 0.6 (1.0-1.7); CREATININE 0.4 mg/dL (0.7-1.3)
[2020-11-10 09:44] LABS: GFR 222.5; MAGNESIUM 1.9 mg/dL (1.8-2.4); POTASSIUM 3.6 mmol/L (3.5-5.1); TOTAL BILIRUBIN 0.4 mg/dL (0.2-1.0)
[2020-11-10] MEDS: hydrALAZINE 20 MG/ML VIAL. IVP PRN (09:49)
--- NOTE | 2020-11-10 10:33 | PDOC ---
[facility] PROGRESS NOTE Date of Service DOS: DATE: 11/10/20 TIME: 10:32 Chief Complaint Chief Complaint Acute hypoxic hypercapnic respiratory failure requiring intubation and sedation COPD Hyponatremia Acute encephalopathy NOS Schizophrenia Tobacco abuse Alcohol abuse History of Present Illness History of Present Illness 11/10/2020 Patient seen and examined in the ICU His mother is present He is now on less oxygen Assist-control/16/500/30 5% with 5 of PEEP Blood pressures running a little high at 165/102 I ordered some IV Vasotec Patient on IV Zosyn Has NG running at 45 cc an hour Sedated with Dex fentanyl and propofol Has mitts on for patient safety He remains critically ill 11/09/2020 Patient seen and examined in the ICU His mother is present I discussed the case with her He remains ventilated and is sedated Assist-control/16/500/40 percent with 5 of PEEP He remains critically ill 11/08/2020 Patient seen and examined in the ICU He remains ventilated Assist-control/16/500 with 60% FiO2 and 5 of PEEP Sedated with propofol Versed and fentanyl Has NG feed running Discussed with RN Chart reviewed He remains critically ill 11/07/2020 Patient seen and examined in the ICU He is intubated AC/16/500/70 percent with 5 of PEEP He is in mitts for his own safety He has a Shi to bedside drainage On IV Zosyn Sedated with Versed fentanyl and propofol Chart reviewed Discussed with RN Discussed with case management He is critically ill Vitals/I&O Vitals/I&O: Vital Signs Date Time Temp Pulse Resp B/P (MAP) Pulse Ox O2 Delivery O2 Flow Rate FiO2 11/10/20 10:00 70 27 98/56 (70) 98 Ventilator 11/10/20 08:00 97.8 97.8 I & O 11/09/20 11/09/20 11/10/20 15:00 23:00 07:00 Intake Total 250 ml 4309.5 ml 615 ml Output Total 900 ml 1125 ml 800 ml Balance -650 ml 3184.5 ml -185 ml Physical Exam General: Other (Sedated intubated) Heart: Other (Tachycardic) Lungs: Clear Abdomen: Soft Extremities: No clubbing, Other (He has mitts on) Skin: No rashes Labs Labs: Laboratory Tests Test 11/09/20 22:30 11/10/20 07:15 1/15/21 08:30 Potassium Level 3.6 mmol/L (3.5-5.1) 3.6 mmol/L (3.5-5.1) O2 Saturation 96 % (92-99) Arterial Blood pH 7.45 (7.35-7.45) Arterial Blood pCO2 at Patient Temp 43 mmHg (35-46) Arterial Blood pO2 at Patient Temp 79 mmHg (75-108) Arterial Blood HCO3 29 mmol/L (21-28) Arterial Blood Base Excess 4 mmol/L (-3-3) FiO2 40/vent White Blood Count 13.5 x10^3/uL (4.0-11.0) Red Blood Count 3.83 x10^6/uL (4.30-5.70) Hemoglobin 12.2 g/dL (13.0-17.5) Hematocrit 37.1 % (39.0-53.0) Mean Corpuscular Volume 97 fL (79-100) Mean Corpuscular Hemoglobin 32 pg (25-35) Mean Corpuscular Hemoglobin Concent 33 g/dL (31-37) Red Cell Distribution Width 12.9 % (11.5-14.5) Platelet Count 241 x10^3/uL (140-400) Sodium Level 138 mmol/L (136-145) Chloride Level 101 mmol/L (98-107) Carbon Dioxide Level 30 mmol/L (21-32) Anion Gap 7 (6-14) Blood Urea Nitrogen 6 mg/dL (8-26) Creatinine 0.4 mg/dL (0.7-1.3) Estimated GFR (Cockcroft-Gault) 222.5 BUN/Creatinine Ratio 15 (6-20) Glucose Level 116 mg/dL (70-99) Calcium Level 8.0 mg/dL (8.5-10.1) Magnesium Level 1.9 mg/dL (1.8-2.4) Total Bilirubin 0.4 mg/dL (0.2-1.0) Aspartate Amino Transf (AST/SGOT) 12 U/L (15-37) Alanine Aminotransferase (ALT/SGPT) 16 U/L (16-63) Alkaline Phosphatase 43 U/L (46-116) Total Protein 5.0 g/dL (6.4-8.2) Albumin 1.8 g/dL (3.4-5.0) Albumin/Globulin Ratio 0.6 (1.0-1.7) Assessment and Plan Assessmemt and Plan Acute hypoxic hypercapnic respiratory failure requiring intubation and sedation COPD Hyponatremia Acute encephalopathy NOS Tobacco abuse Schizophrenia Plan ICU monitoring Vent weaning IV Vasotec for hypertension IV antibiotics NG feeds Continue sedation with propofol and Versed Duo nebs IV steroids CIWA protocol DVT prophylaxis Home meds GI prophylaxis with Protonix He remains critically ill Appreciate pulmonary input Prognosis guarded CC time 33 minutes Comment Review of Relevant I have reviewed the following items kye (where applicable) has been applied. Medications: Current Medications Medications (Trade) Dose Ordered Sig/Jean Carlos Route PRN Reason Start Time Stop Time Status Last Admin Dose Admin Potassium Bicarbonate (Potassium Effervescent Tablet) 40 meq 1X ONCE PO 11/09/20 16:30 11/09/20 16:34 DC 11/09/20 16:55 Magnesium Sulfate 100 ml @ 50 mls/hr 1X ONCE IV 11/09/20 18:30 11/09/20 20:29 DC 11/09/20 18:30 Hydralazine HCl (Apresoline Inj) 10 mg PRN Q4HRS PRN IVP ELEVATED BP, SEE COMMENTS 11/10/20 09:00 11/10/20 09:49 Justifications for Admission Other Justification NIKKO BROWN III DO Nov 10, 2020 10:33
--- NOTE | 2020-11-10 16:17 | NUR ---
SS following up with discharge planning. SS reviewed pt chart and discussed with pt RN. Pt is currently on the vent at 35%. COVID19 negative. Pt on IV Zosyn. Per RN, pt will remain intubated over the weekend. Not stable. SS will continue to follow for discharge planning.
[2020-11-10] MEDS: PROPOFOL 100 ML IV PRN ×2 (17:34→23:48)
[2020-11-10] MEDS: ENOXAPARIN 40 MG/0.4 ML SYRINGE. SQ SCH (21:25)
[2020-11-11] VITALS (24 sets, daily range): BP systolic 94–131; BP diastolic 59–87
[2020-11-11] MEDS: IV NORMAL SALINE 1000ML BAG 1,000 ML IV SCH ×3 (02:35→20:50)
[2020-11-11] MEDS: DEXMEDETOMIDINE 400 MCG in IV NORMAL SALINE 100ML 96 ML IV PRN ×4 (03:50→22:51)
[2020-11-11] MEDS: PIPERACILLIN/TAZOBACTAM 3.375 GM in IV NORMAL SALINE 50ML 50 ML IV SCH ×3 (05:43→17:12)
[2020-11-11] MEDS: PROPOFOL 100 ML IV PRN ×4 (05:46→22:26)
--- NOTE | 2020-11-11 06:18 | PDOC ---
PULMONARY PROGRESS NOTES DATE: 11/11/20 TIME: 06:17 Subjective pt. is sedated on Vent A/C mode : 40% and PEEP 5 on precedex propofol fentanyl small ett secretion Afebrile no overnight concerns Vitals Vital Signs Date Time Temp Pulse Resp B/P (MAP) Pulse Ox O2 Delivery O2 Flow Rate FiO2 11/11/20 05:00 62 100/68 (79) 94 Ventilator 11/11/20 04:00 99.6 31 99.6 Comments ros unable to obtain intubated/sedated HEENT: Other (nc at perrl nose clear orally intubated neck no lad no thyromegaly) Lungs: Crackles Cardiovascular: S1, S2 Abdomen: Soft, Non-tender, Other (no mass) Extremities: No Edema Skin: Warm Labs Laboratory Tests Test 11/09/20 07:30 11/09/20 10:20 11/09/20 22:30 11/10/20 07:15 O2 Saturation 93 % (92-99) 96 % (92-99) Arterial Blood pH 7.42 (7.35-7.45) 7.45 (7.35-7.45) Arterial Blood pCO2 at Patient Temp 49 mmHg (35-46) 43 mmHg (35-46) Arterial Blood pO2 at Patient Temp 64 mmHg (75-108) 79 mmHg (75-108) Arterial Blood HCO3 31 mmol/L (21-28) 29 mmol/L (21-28) Arterial Blood Base Excess 6 mmol/L (-3-3) 4 mmol/L (-3-3) FiO2 40/vent 40/vent Sodium Level 135 mmol/L (136-145) Potassium Level 3.1 mmol/L (3.5-5.1) 3.6 mmol/L (3.5-5.1) Chloride Level 100 mmol/L (98-107) Carbon Dioxide Level 32 mmol/L (21-32) Anion Gap 3 (6-14) Blood Urea Nitrogen 5 mg/dL (8-26) Creatinine 0.3 mg/dL (0.7-1.3) Estimated GFR (Cockcroft-Gault) > 300.0 BUN/Creatinine Ratio 17 (6-20) Glucose Level 115 mg/dL (70-99) Calcium Level 7.5 mg/dL (8.5-10.1) Magnesium Level 1.7 mg/dL (1.8-2.4) Total Bilirubin 0.4 mg/dL (0.2-1.0) Aspartate Amino Transf (AST/SGOT) 15 U/L (15-37) Alanine Aminotransferase (ALT/SGPT) 16 U/L (16-63) Alkaline Phosphatase 42 U/L (46-116) Total Protein 5.1 g/dL (6.4-8.2) Albumin 1.9 g/dL (3.4-5.0) Albumin/Globulin Ratio 0.6 (1.0-1.7) Test 11/10/20 08:30 White Blood Count 13.5 x10^3/uL (4.0-11.0) Red Blood Count 3.83 x10^6/uL (4.30-5.70) Hemoglobin 12.2 g/dL (13.0-17.5) Hematocrit 37.1 % (39.0-53.0) Mean Corpuscular Volume 97 fL (79-100) Mean Corpuscular Hemoglobin 32 pg (25-35) Mean Corpuscular Hemoglobin Concent 33 g/dL (31-37) Red Cell Distribution Width 12.9 % (11.5-14.5) Platelet Count 241 x10^3/uL (140-400) Sodium Level 138 mmol/L (136-145) Potassium Level 3.6 mmol/L (3.5-5.1) Chloride Level 101 mmol/L (98-107) Carbon Dioxide Level 30 mmol/L (21-32) Anion Gap 7 (6-14) Blood Urea Nitrogen 6 mg/dL (8-26) Creatinine 0.4 mg/dL (0.7-1.3) Estimated GFR (Cockcroft-Gault) 222.5 BUN/Creatinine Ratio 15 (6-20) Glucose Level 116 mg/dL (70-99) Calcium Level 8.0 mg/dL (8.5-10.1) Magnesium Level 1.9 mg/dL (1.8-2.4) Total Bilirubin 0.4 mg/dL (0.2-1.0) Aspartate Amino Transf (AST/SGOT) 12 U/L (15-37) Alanine Aminotransferase (ALT/SGPT) 16 U/L (16-63) Alkaline Phosphatase 43 U/L (46-116) Total Protein 5.0 g/dL (6.4-8.2) Albumin 1.8 g/dL (3.4-5.0) Albumin/Globulin Ratio 0.6 (1.0-1.7) Laboratory Tests Test 11/10/20 07:15 11/10/20 08:30 O2 Saturation 96 % (92-99) Arterial Blood pH 7.45 (7.35-7.45) Arterial Blood pCO2 at Patient Temp 43 mmHg (35-46) Arterial Blood pO2 at Patient Temp 79 mmHg (75-108) Arterial Blood HCO3 29 mmol/L (21-28) Arterial Blood Base Excess 4 mmol/L (-3-3) FiO2 40/vent White Blood Count 13.5 x10^3/uL (4.0-11.0) Red Blood Count 3.83 x10^6/uL (4.30-5.70) Hemoglobin 12.2 g/dL (13.0-17.5) Hematocrit 37.1 % (39.0-53.0) Mean Corpuscular Volume 97 fL (79-100) Mean Corpuscular Hemoglobin 32 pg (25-35) Mean Corpuscular Hemoglobin Concent 33 g/dL (31-37) Red Cell Distribution Width 12.9 % (11.5-14.5) Platelet Count 241 x10^3/uL (140-400) Sodium Level 138 mmol/L (136-145) Potassium Level 3.6 mmol/L (3.5-5.1) Chloride Level 101 mmol/L (98-107) Carbon Dioxide Level 30 mmol/L (21-32) Anion Gap 7 (6-14) Blood Urea Nitrogen 6 mg/dL (8-26) Creatinine 0.4 mg/dL (0.7-1.3) Estimated GFR (Cockcroft-Gault) 222.5 BUN/Creatinine Ratio 15 (6-20) Glucose Level 116 mg/dL (70-99) Calcium Level 8.0 mg/dL (8.5-10.1) Magnesium Level 1.9 mg/dL (1.8-2.4) Total Bilirubin 0.4 mg/dL (0.2-1.0) Aspartate Amino Transf (AST/SGOT) 12 U/L (15-37) Alanine Aminotransferase (ALT/SGPT) 16 U/L (16-63) Alkaline Phosphatase 43 U/L (46-116) Total Protein 5.0 g/dL (6.4-8.2) Albumin 1.8 g/dL (3.4-5.0) Albumin/Globulin Ratio 0.6 (1.0-1.7) Medications Active Scripts Medications Dose Route/Sig Max Daily Dose Days Date Category Invega Sustenna (Paliperidone Palmitate) 117 Mg/0.75 Ml Disp.syrin 0 IM QMONTH 30 11/07/20 Reported Comments CXR reviewed Enteric tube extends beyond the diaphragm, tip is not included in the [id number]. ET tube tip terminates approximately 6 cm above the yadira. Small left pleural effusion and left lung base airspace opacities are essentially unchanged. No right pleural effusion. No pneumothorax. Impression . IMPRESSION: 1. [id number]-pqepovm hypercapnic respiratory failure secondary to multifactorial etiologies including acute toxic encephalopathy, worsening chronic obstructive pulmonary disease with hypercapnia and likely contributed by hyponatremia. 2. Long history of tobacco use up to 2 packs per day. Has chronic hypercapnia, likely has severe chronic obstructive pulmonary disease. Chest x-ray has shown severely hyperinflated lungs. 3. Alcohol abuse and possibility of alcohol withdrawal would certainly be in the differential diagnosis. 4. Underlying schizophrenia. 5. Abnormal CT chest with faint patchy interstitial infiltrates in the right lower lobe. Likely aspiration pneumonia. 6. Hyponatremia, likely secondary to alcoholism--resolved Plan . RECOMMENDATIONS: Continue Vent support, setting reviewed, Fi02 40% and PEEP of 5, sbt when more stable on propofol check TG Follow CXR/ABG -- Continue zosyn for full course CIWA protocol once off sedation--- patient is approximately 3 days post last alcoholic drink, monitor closely for withdrawal symptoms Continue tube feeding for nutritional support DVT/GI PPX D/W RN and RT KERI LUCAS MD Nov 11, 2020 06:18
[2020-11-11] MEDS: FAMOTIDINE 20 MG TABLET. PO SCH ×2 (08:23→20:51)
[2020-11-11 09:15] LABS: BASE EXCESS ABG 2 mmol/L (-3-3); HCO3 ABG 27 mmol/L (21-28); PCO2 ABG 48 mmHg (35-46); PO2 ABG 67 mmHg (75-108); SAT O2 ABG 92 % (92-99)
[2020-11-11 09:37] LABS: HEMATOCRIT 36.5 % (39.0-53.0); RED BLOOD COUNT 3.76 x10^6/uL (4.30-5.70); WHITE BLOOD COUNT 11.4 x10^3/uL (4.0-11.0)
[2020-11-11 09:50] LABS: ALBUMIN 1.6 g/dL (3.4-5.0); ALBUMIN/GLOBULIN RATIO 0.5 (1.0-1.7); CALCIUM 7.8 mg/dL (8.5-10.1); CREATININE 0.4 mg/dL (0.7-1.3); GFR 222.5; MAGNESIUM 1.6 mg/dL (1.8-2.4); POTASSIUM 3.6 mmol/L (3.5-5.1); TOTAL BILIRUBIN 0.3 mg/dL (0.2-1.0); TOTAL PROTEIN 5.1 g/dL (6.4-8.2)
[2020-11-11 10:08] LABS: FIO2 ABG 35% VENT
[2020-11-11] MEDS ORDERED: MAGNESIUM SULFATE 4GM 100 ML IV ONE (11:30)
--- NOTE | 2020-11-11 14:43 | PDOC ---
GENERAL General: Patient examined chart reviewed today is hospital day 6 for this patient with acute respiratory failure secondary to obtundation in the setting of his chronic alcoholism. He was also severely hyponatremic on admission. He has also been found to have aspiration pneumonia. He was found to be Covid 19 - at [facility]. Appreciate subspecialty support. We will need to continue to address long-term goals with family at this point the patient is a full code. We will continue current management otherwise. Problems: (1) Chronic schizophrenia (2) Acute respiratory failure with hypoxia (3) Pneumonia (4) Chronic alcoholism (5) Hyponatremia VITAL SIGNS Vital Signs/I&O: Vital Signs Date Time Temp Pulse Resp B/P (MAP) Pulse Ox O2 Delivery O2 Flow Rate FiO2 11/11/20 11:50 98 Ventilator 11/11/20 11:00 60 16 95/61 (72) 11/11/20 08:00 100.5 100.5 I & O 11/10/20 11/10/20 11/11/20 15:00 23:00 07:00 Intake Total 200 ml 3150 ml 1571 ml Output Total 900 ml 600 ml 600 ml Balance -700 ml 2550 ml 971 ml Patient is intubated and sedated not responding unaccompanied at bedside HEENT exam is unremarkable for acute abnormality Chest is clear to auscultation anteriorly Heart S1-S2 normal regular rate and rhythm no murmurs or gallops are noted Abdomen soft nontender nondistended no masses organomegaly noted Extremity exam is unremarkable for acute abnormality ALLERGIES Allergies: Allergies Coded Allergies Type Severity Reaction Last Updated Verified No Known Drug Allergies 11/06/20 No MEDS Medications: Current Medications Medications (Trade) Dose Ordered Sig/Jean Carlos Start Time Stop Time Status Last Admin Dose Admin Atropine Sulfate (ATROPINE 0.5mg SYRINGE) 0.5 mg PRN Q5MIN PRN 11/09/20 09:45 Dexmedetomidine HCl 400 mcg/ Sodium Chloride 100 ml @ 0 mls/hr CONT PRN 11/09/20 09:45 11/11/20 11:16 Enoxaparin Sodium (Lovenox 40mg Syringe) 40 mg Q24H 11/07/20 21:00 11/10/20 21:25 Famotidine (Pepcid) 20 mg BID 11/07/20 21:00 11/11/20 08:23 Fentanyl Citrate 30 ml @ 0 mls/hr CONT PRN 11/06/20 13:45 11/11/20 10:38 Haloperidol Lactate (Haldol Inj) 5 mg Q8HRS 11/09/20 14:00 11/09/20 13:09 DC Hydralazine HCl (Apresoline Inj) 10 mg PRN Q4HRS PRN 11/10/20 09:00 11/10/20 09:49 Magnesium Sulfate 100 ml @ 50 mls/hr 1X ONCE 11/11/20 11:30 11/11/20 13:29 DC 11/11/20 11:30 Midazolam HCl 100 ml @ 0 mls/hr CONT PRN 11/06/20 14:00 11/08/20 09:41 Piperacillin Sod/ Tazobactam Sod (Zosyn Per Pharmacy) 1 each PRN DAILY PRN 11/06/20 18:00 Piperacillin Sod/ Tazobactam Sod 3.375 gm/Sodium Chloride 50 ml @ 100 mls/hr Q6HRS 11/06/20 18:00 11/11/20 11:47 Potassium Bicarbonate (Potassium Effervescent Tablet) 40 meq 1X ONCE 11/09/20 16:30 11/09/20 16:34 DC 11/09/20 16:55 Propofol 100 ml @ 0 mls/hr CONT PRN 11/06/20 13:45 11/11/20 12:44 Sodium Chloride 500 ml @ 500 mls/hr 1X PRN PRN 11/09/20 09:45 Current Medications Medications (Trade) Dose Ordered Sig/Jean Carlos Route PRN Reason Start Time Stop Time Status Last Admin Dose Admin Magnesium Sulfate 100 ml @ 50 mls/hr 1X ONCE IV 11/11/20 11:30 11/11/20 13:29 DC 11/11/20 11:30 LAB Lab: Laboratory Tests Test 11/11/20 08:00 11/11/20 09:20 O2 Saturation 92 % (92-99) Arterial Blood pH 7.37 (7.35-7.45) Arterial Blood pCO2 at Patient Temp 48 mmHg (35-46) H Arterial Blood pO2 at Patient Temp 67 mmHg (75-108) L Arterial Blood HCO3 27 mmol/L (21-28) Arterial Blood Base Excess 2 mmol/L (-3-3) FiO2 35% vent White Blood Count 11.4 x10^3/uL (4.0-11.0) H Red Blood Count 3.76 x10^6/uL (4.30-5.70) L Hemoglobin 12.0 g/dL (13.0-17.5) L Hematocrit 36.5 % (39.0-53.0) L Mean Corpuscular Volume 97 fL (79-100) Mean Corpuscular Hemoglobin 32 pg (25-35) Mean Corpuscular Hemoglobin Concent 33 g/dL (31-37) Red Cell Distribution Width 13.0 % (11.5-14.5) Platelet Count 249 x10^3/uL (140-400) Sodium Level 140 mmol/L (136-145) Potassium Level 3.6 mmol/L (3.5-5.1) Chloride Level 102 mmol/L (98-107) Carbon Dioxide Level 31 mmol/L (21-32) Anion Gap 7 (6-14) Blood Urea Nitrogen 7 mg/dL (8-26) L Creatinine 0.4 mg/dL (0.7-1.3) L Estimated GFR (Cockcroft-Gault) 222.5 BUN/Creatinine Ratio 18 (6-20) Glucose Level 128 mg/dL (70-99) H Calcium Level 7.8 mg/dL (8.5-10.1) L Magnesium Level 1.6 mg/dL (1.8-2.4) L Total Bilirubin 0.3 mg/dL (0.2-1.0) Aspartate Amino Transferase (AST) 9 U/L (15-37) L Alanine Aminotransferase (ALT) 13 U/L (16-63) L Alkaline Phosphatase 44 U/L (46-116) L Total Protein 5.1 g/dL (6.4-8.2) L Albumin 1.6 g/dL (3.4-5.0) L Albumin/Globulin Ratio 0.5 (1.0-1.7) L Triglycerides Level 50 mg/dL (0-150) Laboratory Tests 11/11/20 09:20 Laboratory Tests 11/11/20 09:20 ASSESSMENT & PLAN A&P Plan as noted above This note was created using [employer] and may have omissions and/or errors due to the nature of real-time voice fire protection equipment technician. Justifications for Admission Other Justification Nutrition Consultation Dietary Evaluation: Recommendations by RD: Dietary education by RD, Increase Calorie Intake Comments: Continue w/TFs as ordered: VitalAF@goal rate 45 ml/hr w/100 ml water flushes q4 hrs Expected Outcomes/Goals: New goal 11/08: TF infusion to meet >65% est needs while intubated - met, goal ongoing Malnutrition Findings: Body Fat Depletion (Non Severe: Mild Depletion Weight Status: Underweight ALIE MCGOVERN MD Nov 11, 2020 14:43
[2020-11-11] MEDS: ENOXAPARIN 40 MG/0.4 ML SYRINGE. SQ SCH (20:52)
[2020-11-12] VITALS (21 sets, daily range): BP systolic 85–146; BP diastolic 55–94
[2020-11-12] MEDS: PIPERACILLIN/TAZOBACTAM 3.375 GM in IV NORMAL SALINE 50ML 50 ML IV SCH ×4 (01:02→17:14)
[2020-11-12] MEDS: PROPOFOL 100 ML IV PRN ×4 (04:13→21:50)
[2020-11-12] MEDS: IV NORMAL SALINE 1000ML BAG 1,000 ML IV SCH ×3 (05:30→22:36)
[2020-11-12 05:55] LABS: BASO # 0.1 x10^3/uL (0.0-0.2); BASO % 1 % (0-3); EOS # 0.6 x10^3/uL (0.0-0.7); EOS % 6 % (0-3); HEMATOCRIT 33.1 % (39.0-53.0); HEMOGLOBIN 10.8 g/dL (13.0-17.5); LYMPH # 1.2 x10^3/uL (1.0-4.8); LYMPH % 11 % (24-48); MEAN CORPUSCULAR HEMOGLOBIN 32 pg (25-35); MEAN CORPUSCULAR HGB CONC 33 g/dL (31-37); MEAN CORPUSCULAR VOLUME 97 fL (79-100); MONO # 1.4 x10^3/uL (0.0-1.1); MONO % 12 % (0-9); NEUT # 7.8 x10^3/uL (1.8-7.7); NEUT % 71 % (31-73); PLATELET COUNT 256 x10^3/uL (140-400); RED BLOOD COUNT 3.42 x10^6/uL (4.30-5.70); RED CELL DISTRIBUTION WIDTH 13.2 % (11.5-14.5)
[2020-11-12] MEDS: DEXMEDETOMIDINE 400 MCG in IV NORMAL SALINE 100ML 96 ML IV PRN ×4 (05:55→22:37)
[2020-11-12 06:16] LABS: ALBUMIN 1.5 g/dL (3.4-5.0); ALBUMIN/GLOBULIN RATIO 0.5 (1.0-1.7); CREATININE 0.5 mg/dL (0.7-1.3); POTASSIUM 3.7 mmol/L (3.5-5.1); TOTAL BILIRUBIN 0.3 mg/dL (0.2-1.0); TOTAL PROTEIN 4.8 g/dL (6.4-8.2)
--- NOTE | 2020-11-12 06:17 | PDOC ---
PULMONARY PROGRESS NOTES DATE: 11/12/20 TIME: 06:16 Subjective pt. is sedated on Vent A/C mode : 35% and PEEP 5 on precedex propofol fentanyl small-mod ett secretion Afebrile Vitals Vital Signs Date Time Temp Pulse Resp B/P (MAP) Pulse Ox O2 Delivery O2 Flow Rate FiO2 11/12/20 05:56 99 Ventilator 11/12/20 03:00 48 20 146/93 (110) 11/11/20 23:00 99.7 99.7 Comments ros unable to obtain intubated/sedated HEENT: Other (nc at perrl nose clear orally intubated neck no lad no thyromegaly) Lungs: Crackles Cardiovascular: S1, S2 Abdomen: Soft, Non-tender, Other (no mass) Extremities: No Edema Skin: Warm Labs Laboratory Tests Test 11/10/20 07:15 11/10/20 08:30 11/11/20 08:00 11/11/20 09:20 O2 Saturation 96 % (92-99) 92 % (92-99) Arterial Blood pH 7.45 (7.35-7.45) 7.37 (7.35-7.45) Arterial Blood pCO2 at Patient Temp 43 mmHg (35-46) 48 mmHg (35-46) Arterial Blood pO2 at Patient Temp 79 mmHg (75-108) 67 mmHg (75-108) Arterial Blood HCO3 29 mmol/L (21-28) 27 mmol/L (21-28) Arterial Blood Base Excess 4 mmol/L (-3-3) 2 mmol/L (-3-3) FiO2 40/vent 35% vent White Blood Count 13.5 x10^3/uL (4.0-11.0) 11.4 x10^3/uL (4.0-11.0) Red Blood Count 3.83 x10^6/uL (4.30-5.70) 3.76 x10^6/uL (4.30-5.70) Hemoglobin 12.2 g/dL (13.0-17.5) 12.0 g/dL (13.0-17.5) Hematocrit 37.1 % (39.0-53.0) 36.5 % (39.0-53.0) Mean Corpuscular Volume 97 fL (79-100) 97 fL (79-100) Mean Corpuscular Hemoglobin 32 pg (25-35) 32 pg (25-35) Mean Corpuscular Hemoglobin Concent 33 g/dL (31-37) 33 g/dL (31-37) Red Cell Distribution Width 12.9 % (11.5-14.5) 13.0 % (11.5-14.5) Platelet Count 241 x10^3/uL (140-400) 249 x10^3/uL (140-400) Sodium Level 138 mmol/L (136-145) 140 mmol/L (136-145) Potassium Level 3.6 mmol/L (3.5-5.1) 3.6 mmol/L (3.5-5.1) Chloride Level 101 mmol/L (98-107) 102 mmol/L (98-107) Carbon Dioxide Level 30 mmol/L (21-32) 31 mmol/L (21-32) Anion Gap 7 (6-14) 7 (6-14) Blood Urea Nitrogen 6 mg/dL (8-26) 7 mg/dL (8-26) Creatinine 0.4 mg/dL (0.7-1.3) 0.4 mg/dL (0.7-1.3) Estimated GFR (Cockcroft-Gault) 222.5 222.5 BUN/Creatinine Ratio 15 (6-20) 18 (6-20) Glucose Level 116 mg/dL (70-99) 128 mg/dL (70-99) Calcium Level 8.0 mg/dL (8.5-10.1) 7.8 mg/dL (8.5-10.1) Magnesium Level 1.9 mg/dL (1.8-2.4) 1.6 mg/dL (1.8-2.4) Total Bilirubin 0.4 mg/dL (0.2-1.0) 0.3 mg/dL (0.2-1.0) Aspartate Amino Transf (AST/SGOT) 12 U/L (15-37) 9 U/L (15-37) Alanine Aminotransferase (ALT/SGPT) 16 U/L (16-63) 13 U/L (16-63) Alkaline Phosphatase 43 U/L (46-116) 44 U/L (46-116) Total Protein 5.0 g/dL (6.4-8.2) 5.1 g/dL (6.4-8.2) Albumin 1.8 g/dL (3.4-5.0) 1.6 g/dL (3.4-5.0) Albumin/Globulin Ratio 0.6 (1.0-1.7) 0.5 (1.0-1.7) Triglycerides Level 50 mg/dL (0-150) Laboratory Tests Test 11/11/20 08:00 11/11/20 09:20 O2 Saturation 92 % (92-99) Arterial Blood pH 7.37 (7.35-7.45) Arterial Blood pCO2 at Patient Temp 48 mmHg (35-46) Arterial Blood pO2 at Patient Temp 67 mmHg (75-108) Arterial Blood HCO3 27 mmol/L (21-28) Arterial Blood Base Excess 2 mmol/L (-3-3) FiO2 35% vent White Blood Count 11.4 x10^3/uL (4.0-11.0) Red Blood Count 3.76 x10^6/uL (4.30-5.70) Hemoglobin 12.0 g/dL (13.0-17.5) Hematocrit 36.5 % (39.0-53.0) Mean Corpuscular Volume 97 fL (79-100) Mean Corpuscular Hemoglobin 32 pg (25-35) Mean Corpuscular Hemoglobin Concent 33 g/dL (31-37) Red Cell Distribution Width 13.0 % (11.5-14.5) Platelet Count 249 x10^3/uL (140-400) Sodium Level 140 mmol/L (136-145) Potassium Level 3.6 mmol/L (3.5-5.1) Chloride Level 102 mmol/L (98-107) Carbon Dioxide Level 31 mmol/L (21-32) Anion Gap 7 (6-14) Blood Urea Nitrogen 7 mg/dL (8-26) Creatinine 0.4 mg/dL (0.7-1.3) Estimated GFR (Cockcroft-Gault) 222.5 BUN/Creatinine Ratio 18 (6-20) Glucose Level 128 mg/dL (70-99) Calcium Level 7.8 mg/dL (8.5-10.1) Magnesium Level 1.6 mg/dL (1.8-2.4) Total Bilirubin 0.3 mg/dL (0.2-1.0) Aspartate Amino Transf (AST/SGOT) 9 U/L (15-37) Alanine Aminotransferase (ALT/SGPT) 13 U/L (16-63) Alkaline Phosphatase 44 U/L (46-116) Total Protein 5.1 g/dL (6.4-8.2) Albumin 1.6 g/dL (3.4-5.0) Albumin/Globulin Ratio 0.5 (1.0-1.7) Triglycerides Level 50 mg/dL (0-150) Medications Active Scripts Medications Dose Route/Sig Max Daily Dose Days Date Category Invega Sustenna (Paliperidone Palmitate) 117 Mg/0.75 Ml Disp.syrin 0 IM QMONTH 30 11/07/20 Reported Comments CXR reviewed Enteric tube extends beyond the diaphragm, tip is not included in the [id number]. ET tube tip terminates approximately 6 cm above the yadira. Small left pleural effusion and left lung base airspace opacities are essentially unchanged. No right pleural effusion. No pneumothorax. Impression . IMPRESSION: 1. Otfcg-qc-[id number] hypercapnic respiratory failure secondary to multifactorial etiologies including acute toxic encephalopathy, worsening chronic obstructive pulmonary disease with hypercapnia and likely contributed by hyponatremia. 2. Long history of tobacco use up to 2 packs per day. Has chronic hypercapnia, likely has severe chronic obstructive pulmonary disease. Chest x-ray has shown severely hyperinflated lungs. 3. Alcohol abuse and possibility of alcohol withdrawal would certainly be in the differential diagnosis. 4. Underlying schizophrenia. 5. Abnormal CT chest with faint patchy interstitial infiltrates in the right lower lobe. Likely aspiration pneumonia. 6. Hyponatremia, likely secondary to alcoholism--resolved Plan . RECOMMENDATIONS: Continue Vent support, setting reviewed, Fi02 35% and PEEP of 5, worried about alcohol withdrawal, will do sbt in am on propofol TG nl Follow CXR/ABG --reviewed Continue zosyn for full course CIWA protocol once off sedation--- patient is approximately 3 days post last alcoholic drink, monitor closely for withdrawal symptoms Continue tube feeding for nutritional support DVT/GI PPX D/W RN and RT KERI LUCAS MD Nov 12, 2020 06:17
[2020-11-12 07:51] LABS: BASE EXCESS ABG 6 mmol/L (-3-3); HCO3 ABG 32 mmol/L (21-28); PCO2 ABG 53 mmHg (35-46); PO2 ABG 66 mmHg (75-108); SAT O2 ABG 92 % (92-99)
[2020-11-12 09:11] LABS: FIO2 ABG 35%+5
[2020-11-12] MEDS: FAMOTIDINE 20 MG TABLET. PO SCH ×2 (10:31→22:18)
--- NOTE | 2020-11-12 14:54 | PDOC ---
GENERAL General: Patient examined chart reviewed seen with mother and friend at bedside today. Mother is in good spirits provide some of the history of his longstanding severe alcoholism and drug abuse along with the chronic schizophrenia. She and the patient's dad have worked hard to try to take good care of him despite all of these. The patient is now 8 days since his last alcohol intake and mother feels that it would be safe to try to extubate him tomorrow to avoid continued heavy sedation. Patient is lightly sedated currently and seems to be doing okay. We will need to continue to support alcohol cessation maintenance. Appreciate subspecialty support. Problems: (1) Chronic alcoholism (2) Acute respiratory failure with hypoxia (3) Chronic schizophrenia VITAL SIGNS Vital Signs/I&O: Vital Signs Date Time Temp Pulse Resp B/P (MAP) Pulse Ox O2 Delivery O2 Flow Rate FiO2 11/12/20 14:00 60 20 120/81 (94) 99 Ventilator 11/12/20 12:00 100.5 100.5 I & O 11/11/20 11/11/20 11/12/20 14:59 22:59 06:59 Intake Total 250 ml 3967 ml 1375 ml Output Total 1050 ml 1175 ml 800 ml Balance -800 ml 2792 ml 575 ml Patient is intubated lightly sedated he does open his eyes on the ventilator and appears to be following commands Chest is clear to auscultation Heart S1-S2 normal regular rate and rhythm no murmurs or gallops are noted Extremity exam is unremarkable for acute abnormalities ALLERGIES Allergies: Allergies Coded Allergies Type Severity Reaction Last Updated Verified No Known Drug Allergies 11/06/20 No MEDS Medications: Current Medications Medications (Trade) Dose Ordered Sig/Jean Carlos Start Time Stop Time Status Last Admin Dose Admin Atropine Sulfate (ATROPINE 0.5mg SYRINGE) 0.5 mg PRN Q5MIN PRN 11/09/20 09:45 Dexmedetomidine HCl 400 mcg/ Sodium Chloride 100 ml @ 0 mls/hr CONT PRN 11/09/20 09:45 11/12/20 10:32 Enoxaparin Sodium (Lovenox 40mg Syringe) 40 mg Q24H 11/07/20 21:00 11/11/20 20:52 Famotidine (Pepcid) 20 mg BID 11/07/20 21:00 11/12/20 10:31 Fentanyl Citrate 30 ml @ 0 mls/hr CONT PRN 11/06/20 13:45 11/12/20 05:56 Haloperidol Lactate (Haldol Inj) 5 mg Q8HRS 11/09/20 14:00 11/09/20 13:09 DC Hydralazine HCl (Apresoline Inj) 10 mg PRN Q4HRS PRN 11/10/20 09:00 11/10/20 09:49 Magnesium Sulfate 100 ml @ 50 mls/hr 1X ONCE 11/11/20 11:30 11/11/20 13:29 DC 11/11/20 11:30 Midazolam HCl 100 ml @ 0 mls/hr CONT PRN 11/06/20 14:00 11/08/20 09:41 Piperacillin Sod/ Tazobactam Sod (Zosyn Per Pharmacy) 1 each PRN DAILY PRN 11/06/20 18:00 Piperacillin Sod/ Tazobactam Sod 3.375 gm/Sodium Chloride 50 ml @ 100 mls/hr Q6HRS 11/06/20 18:00 11/12/20 12:12 Potassium Bicarbonate (Potassium Effervescent Tablet) 40 meq 1X ONCE 11/09/20 16:30 11/09/20 16:34 DC 11/09/20 16:55 Propofol 100 ml @ 0 mls/hr CONT PRN 11/06/20 13:45 11/12/20 10:34 Sodium Chloride 500 ml @ 500 mls/hr 1X PRN PRN 11/09/20 09:45 LAB Lab: Laboratory Tests Test 11/12/20 05:00 11/12/20 08:00 White Blood Count 11.0 x10^3/uL (4.0-11.0) Red Blood Count 3.42 x10^6/uL (4.30-5.70) L Hemoglobin 10.8 g/dL (13.0-17.5) L Hematocrit 33.1 % (39.0-53.0) L Mean Corpuscular Volume 97 fL (79-100) Mean Corpuscular Hemoglobin 32 pg (25-35) Mean Corpuscular Hemoglobin Concent 33 g/dL (31-37) Red Cell Distribution Width 13.2 % (11.5-14.5) Platelet Count 256 x10^3/uL (140-400) Neutrophils (%) (Auto) 71 % (31-73) Lymphocytes (%) (Auto) 11 % (24-48) L Monocytes (%) (Auto) 12 % (0-9) H Eosinophils (%) (Auto) 6 % (0-3) H Basophils (%) (Auto) 1 % (0-3) Neutrophils # (Auto) 7.8 x10^3/uL (1.8-7.7) H Lymphocytes # (Auto) 1.2 x10^3/uL (1.0-4.8) Monocytes # (Auto) 1.4 x10^3/uL (0.0-1.1) H Eosinophils # (Auto) 0.6 x10^3/uL (0.0-0.7) Basophils # (Auto) 0.1 x10^3/uL (0.0-0.2) Sodium Level 138 mmol/L (136-145) Potassium Level 3.7 mmol/L (3.5-5.1) Chloride Level 103 mmol/L (98-107) Carbon Dioxide Level 31 mmol/L (21-32) Anion Gap 4 (6-14) L Blood Urea Nitrogen 8 mg/dL (8-26) Creatinine 0.5 mg/dL (0.7-1.3) L Estimated GFR (Cockcroft-Gault) 172.0 BUN/Creatinine Ratio 16 (6-20) Glucose Level 120 mg/dL (70-99) H Calcium Level 8.0 mg/dL (8.5-10.1) L Total Bilirubin 0.3 mg/dL (0.2-1.0) Aspartate Amino Transferase (AST) 12 U/L (15-37) L Alanine Aminotransferase (ALT) 10 U/L (16-63) L Alkaline Phosphatase 39 U/L (46-116) L Total Protein 4.8 g/dL (6.4-8.2) L Albumin 1.5 g/dL (3.4-5.0) L Albumin/Globulin Ratio 0.5 (1.0-1.7) L O2 Saturation 92 % (92-99) Arterial Blood pH 7.40 (7.35-7.45) Arterial Blood pCO2 at Patient Temp 53 mmHg (35-46) H Arterial Blood pO2 at Patient Temp 66 mmHg (75-108) L Arterial Blood HCO3 32 mmol/L (21-28) H Arterial Blood Base Excess 6 mmol/L (-3-3) H FiO2 35%+5 Laboratory Tests 11/12/20 05:00 Laboratory Tests 11/12/20 05:00 ASSESSMENT & PLAN A&P Plan as noted above This note was created using [facility] and may have omissions and/or errors due to the nature of real-time voice postal delivery officer. Justifications for Admission Other Justification Nutrition Consultation Dietary Evaluation: Recommendations by RD: Dietary education by RD, Increase Calorie Intake Comments: Continue w/TFs as ordered: VitalAF@goal rate 45 ml/hr w/100 ml water flushes q4 hrs Expected Outcomes/Goals: New goal 11/08: TF infusion to meet >65% est needs while intubated - met, goal ongoing Malnutrition Findings: Body Fat Depletion (Non Severe: Mild Depletion Weight Status: Underweight ALIE MCGOVERN MD Nov 12, 2020 14:54
--- NOTE | 2020-11-12 14:54 | RAD ---
EXAMINATION: XR CHEST 1V CLINICAL HISTORY: Tachycardia, trending 116 TECHNIQUE: XR CHEST 1V COMPARISON: 11/10/2020 FINDINGS/ IMPRESSION: Endotracheal and enteric tubes remain in similar positions. Essentially unchanged hazy opacification in the left mid to lower lung zone, possibly related to laye ring pleural effusion and/or airspace disease. Left costophrenic angle excluded from the abdomen show no discrete fluid level is visualized. Right lung unchanged. Stable heart size. Electronically signed by: Sean Stout DO (11/12/2020 2:52 PM) [id number]
[2020-11-12] MEDS ORDERED: ACETAMINOPHEN 650 MG/20.3 ML SOLUTION. NG PRN (17:30)
[2020-11-12] MEDS: ENOXAPARIN 40 MG/0.4 ML SYRINGE. SQ SCH (22:19)
[2020-11-13] VITALS (24 sets, daily range): BP systolic 92–175; BP diastolic 46–105
[2020-11-13] MEDS: PIPERACILLIN/TAZOBACTAM 3.375 GM in IV NORMAL SALINE 50ML 50 ML IV SCH ×5 (00:37→23:59)
[2020-11-13] MEDS: DEXMEDETOMIDINE 400 MCG in IV NORMAL SALINE 100ML 96 ML IV PRN (04:57)
[2020-11-13] MEDS: IV NORMAL SALINE 1000ML BAG 1,000 ML IV SCH ×2 (07:49→16:16)
[2020-11-13 08:11] LABS: HEMATOCRIT 35.5 % (39.0-53.0); HEMOGLOBIN 11.8 g/dL (13.0-17.5); RED BLOOD COUNT 3.68 x10^6/uL (4.30-5.70)
[2020-11-13 08:13] LABS: BASE EXCESS ABG 3 mmol/L (-3-3); HCO3 ABG 28 mmol/L (21-28); PCO2 ABG 45 mmHg (35-46); PO2 ABG 69 mmHg (75-108); SAT O2 ABG 94 % (92-99)
[2020-11-13 08:23] LABS: ALBUMIN 1.6 g/dL (3.4-5.0); ALBUMIN/GLOBULIN RATIO 0.4 (1.0-1.7); CALCIUM 7.8 mg/dL (8.5-10.1); CREATININE 0.4 mg/dL (0.7-1.3); GFR 222.5; MAGNESIUM 1.6 mg/dL (1.8-2.4); POTASSIUM 3.9 mmol/L (3.5-5.1); TOTAL BILIRUBIN 0.3 mg/dL (0.2-1.0); TOTAL PROTEIN 5.2 g/dL (6.4-8.2)
[2020-11-13] MEDS: FAMOTIDINE 20 MG TABLET. PO SCH ×2 (09:01→20:49)
[2020-11-13 09:53] LABS: FIO2 ABG 35
[2020-11-13 10:25] LABS: BASE EXCESS ABG 3 mmol/L (-3-3); HCO3 ABG 31 mmol/L (21-28); PO2 ABG 61 mmHg (75-108); SAT O2 ABG 88 % (92-99)
[2020-11-13 10:27] LABS: PCO2 ABG 61 mmHg (35-46)
[2020-11-13 10:28] LABS: FIO2 ABG 35
[2020-11-13] MEDS ORDERED: IPRATRPIUM/ALBUTEROL 0.5/2.5MG 3 ML NEBU. ONE (11:24)
[2020-11-13] MEDS: IPRATRPIUM/ALBUTEROL 0.5/2.5MG 3 ML NEBU. NEB SCH ×3 (11:30→20:01)
--- NOTE | 2020-11-13 12:06 | PDOC ---
PULMONARY PROGRESS NOTES DATE: 11/13/20 TIME: 12:04 Subjective pt. is sedated on Vent A/C mode 35% and PEEP 5 Afebrile Vitals Vital Signs Date Time Temp Pulse Resp B/P (MAP) Pulse Ox O2 Delivery O2 Flow Rate FiO2 11/13/20 11:55 98.1 99 25 131/84 (100) 92 Venturi Mask 98.1 11/13/20 11:20 12.0 Comments intubated/sedated HEENT: Other (nc at perrl nose clear orally intubated neck no lad no thyromegaly) Lungs: Clear Cardiovascular: S1, S2 Abdomen: Soft, Non-tender, Other (no mass) Extremities: No Edema Skin: Warm Labs Laboratory Tests Test 11/12/20 05:00 11/12/20 08:00 11/13/20 07:35 11/13/20 07:55 White Blood Count 11.0 x10^3/uL (4.0-11.0) 10.0 x10^3/uL (4.0-11.0) Red Blood Count 3.42 x10^6/uL (4.30-5.70) 3.68 x10^6/uL (4.30-5.70) Hemoglobin 10.8 g/dL (13.0-17.5) 11.8 g/dL (13.0-17.5) Hematocrit 33.1 % (39.0-53.0) 35.5 % (39.0-53.0) Mean Corpuscular Volume 97 fL (79-100) 97 fL (79-100) Mean Corpuscular Hemoglobin 32 pg (25-35) 32 pg (25-35) Mean Corpuscular Hemoglobin Concent 33 g/dL (31-37) 33 g/dL (31-37) Red Cell Distribution Width 13.2 % (11.5-14.5) 13.0 % (11.5-14.5) Platelet Count 256 x10^3/uL (140-400) 271 x10^3/uL (140-400) Neutrophils (%) (Auto) 71 % (31-73) Lymphocytes (%) (Auto) 11 % (24-48) Monocytes (%) (Auto) 12 % (0-9) Eosinophils (%) (Auto) 6 % (0-3) Basophils (%) (Auto) 1 % (0-3) Neutrophils # (Auto) 7.8 x10^3/uL (1.8-7.7) Lymphocytes # (Auto) 1.2 x10^3/uL (1.0-4.8) Monocytes # (Auto) 1.4 x10^3/uL (0.0-1.1) Eosinophils # (Auto) 0.6 x10^3/uL (0.0-0.7) Basophils # (Auto) 0.1 x10^3/uL (0.0-0.2) Sodium Level 138 mmol/L (136-145) 138 mmol/L (136-145) Potassium Level 3.7 mmol/L (3.5-5.1) 3.9 mmol/L (3.5-5.1) Chloride Level 103 mmol/L (98-107) 103 mmol/L (98-107) Carbon Dioxide Level 31 mmol/L (21-32) 31 mmol/L (21-32) Anion Gap 4 (6-14) 4 (6-14) Blood Urea Nitrogen 8 mg/dL (8-26) 9 mg/dL (8-26) Creatinine 0.5 mg/dL (0.7-1.3) 0.4 mg/dL (0.7-1.3) Estimated GFR (Cockcroft-Gault) 172.0 222.5 BUN/Creatinine Ratio 16 (6-20) 23 (6-20) Glucose Level 120 mg/dL (70-99) 126 mg/dL (70-99) Calcium Level 8.0 mg/dL (8.5-10.1) 7.8 mg/dL (8.5-10.1) Total Bilirubin 0.3 mg/dL (0.2-1.0) 0.3 mg/dL (0.2-1.0) Aspartate Amino Transf (AST/SGOT) 12 U/L (15-37) 13 U/L (15-37) Alanine Aminotransferase (ALT/SGPT) 10 U/L (16-63) 14 U/L (16-63) Alkaline Phosphatase 39 U/L (46-116) 52 U/L (46-116) Total Protein 4.8 g/dL (6.4-8.2) 5.2 g/dL (6.4-8.2) Albumin 1.5 g/dL (3.4-5.0) 1.6 g/dL (3.4-5.0) Albumin/Globulin Ratio 0.5 (1.0-1.7) 0.4 (1.0-1.7) O2 Saturation 92 % (92-99) 94 % (92-99) Arterial Blood pH 7.40 (7.35-7.45) 7.41 (7.35-7.45) Arterial Blood pCO2 at Patient Temp 53 mmHg (35-46) 45 mmHg (35-46) Arterial Blood pO2 at Patient Temp 66 mmHg (75-108) 69 mmHg (75-108) Arterial Blood HCO3 32 mmol/L (21-28) 28 mmol/L (21-28) Arterial Blood Base Excess 6 mmol/L (-3-3) 3 mmol/L (-3-3) FiO2 35%+5 35 Magnesium Level 1.6 mg/dL (1.8-2.4) Test 11/13/20 10:15 O2 Saturation 88 % (92-99) Arterial Blood pH 7.32 (7.35-7.45) Arterial Blood pCO2 at Patient Temp 61 mmHg (35-46) Arterial Blood pO2 at Patient Temp 61 mmHg (75-108) Arterial Blood HCO3 31 mmol/L (21-28) Arterial Blood Base Excess 3 mmol/L (-3-3) FiO2 35 Laboratory Tests Test 11/13/20 07:35 11/13/20 07:55 11/13/20 10:15 O2 Saturation 94 % (92-99) 88 % (92-99) Arterial Blood pH 7.41 (7.35-7.45) 7.32 (7.35-7.45) Arterial Blood pCO2 at Patient Temp 45 mmHg (35-46) 61 mmHg (35-46) Arterial Blood pO2 at Patient Temp 69 mmHg (75-108) 61 mmHg (75-108) Arterial Blood HCO3 28 mmol/L (21-28) 31 mmol/L (21-28) Arterial Blood Base Excess 3 mmol/L (-3-3) 3 mmol/L (-3-3) FiO2 35 35 White Blood Count 10.0 x10^3/uL (4.0-11.0) Red Blood Count 3.68 x10^6/uL (4.30-5.70) Hemoglobin 11.8 g/dL (13.0-17.5) Hematocrit 35.5 % (39.0-53.0) Mean Corpuscular Volume 97 fL (79-100) Mean Corpuscular Hemoglobin 32 pg (25-35) Mean Corpuscular Hemoglobin Concent 33 g/dL (31-37) Red Cell Distribution Width 13.0 % (11.5-14.5) Platelet Count 271 x10^3/uL (140-400) Sodium Level 138 mmol/L (136-145) Potassium Level 3.9 mmol/L (3.5-5.1) Chloride Level 103 mmol/L (98-107) Carbon Dioxide Level 31 mmol/L (21-32) Anion Gap 4 (6-14) Blood Urea Nitrogen 9 mg/dL (8-26) Creatinine 0.4 mg/dL (0.7-1.3) Estimated GFR (Cockcroft-Gault) 222.5 BUN/Creatinine Ratio 23 (6-20) Glucose Level 126 mg/dL (70-99) Calcium Level 7.8 mg/dL (8.5-10.1) Magnesium Level 1.6 mg/dL (1.8-2.4) Total Bilirubin 0.3 mg/dL (0.2-1.0) Aspartate Amino Transf (AST/SGOT) 13 U/L (15-37) Alanine Aminotransferase (ALT/SGPT) 14 U/L (16-63) Alkaline Phosphatase 52 U/L (46-116) Total Protein 5.2 g/dL (6.4-8.2) Albumin 1.6 g/dL (3.4-5.0) Albumin/Globulin Ratio 0.4 (1.0-1.7) Medications Active Scripts Medications Dose Route/Sig Max Daily Dose Days Date Category Invega Sustenna (Paliperidone Palmitate) 117 Mg/0.75 Ml Disp.syrin 0 IM QMONTH 30 11/07/20 Reported Comments CXR reviewed Enteric tube extends beyond the diaphragm, tip is not included in the [id number]. ET tube tip terminates approximately 6 cm above the yadira. Small left pleural effusion and left lung base airspace opacities are essentially unchanged. No right pleural effusion. No pneumothorax. Impression . IMPRESSION: 1. Lwhea-hl-[id number] hypercapnic respiratory failure secondary to multifactorial etiologies including acute toxic encephalopathy, worsening chronic obstructive pulmonary disease with hypercapnia and likely contributed by hyponatremia. 2. Long history of tobacco use up to 2 packs per day. Has chronic hypercapnia, likely has severe chronic obstructive pulmonary disease. Chest x-ray has shown severely hyperinflated lungs. 3. Alcohol abuse and possibility of alcohol withdrawal would certainly be in the differential diagnosis. 4. Underlying schizophrenia. 5. Abnormal CT chest with faint patchy interstitial infiltrates in the right lower lobe. Likely aspiration pneumonia. 6. Hyponatremia, likely secondary to alcoholism--resolved Plan . RECOMMENDATIONS: Continue Vent support, setting reviewed, Fi02 35% and PEEP of 5, Proceed with sedation vacation and pressure support trial, ABG adequate, proceed with extubation Follow CXR/ABG --reviewed Continue zosyn for full course CIWA protocol once off sedation Continue tube feeding for nutritional support Physical therapy/Occupational Therapy/speech therapy DVT/GI PPX D/W RN and RT Critical care time [id number] MAITE BARFIELD MD Nov 13, 2020 12:06
[2020-11-13] MEDS ORDERED: THIAMINE INJ 100 MG in IV DEXTROSE 5% 50 ML IV ONE (15:30)
[2020-11-13] MEDS ORDERED: SALIVA STIMULANT AGENT 44ML SPRAY BOTTLE. PO PRN (15:30)
--- NOTE | 2020-11-13 15:47 | NUR ---
SS following up with discharge planning. SS reviewed pt and discussed with pt RN. Pt extubated and is currently on the Venturi Mask. Pt on IV Zosyn. COVID19 negative. Tube feeding. SS will continue to follow for discharge planning.
--- NOTE | 2020-11-13 16:14 | PDOC ---
PROGRESS NOTES Date of Service: DATE: 11/13/20 TIME: 16:12 Chief Complaint Chief Complaint Acute hypoxic hypercapnic respiratory failure requiring intubation and sedation COPD, acute exacerbation, Hyponatremia, hypovolemic Acute encephalopathy NOS Schizophrenia Tobacco abuse Alcohol abuse, concer for withdrawl, History of Present Illness History of Present Illness 11/13/2020 Patient seen and examined in the ICU His father is present He is now on less oxygen extubatd he was awake and talkative and wanting food for my intervieew, then was hard asleep 10 minutes later when I talked to the nurse about him concern for etoh withdrawl, ativan avail Patient on IV Zosyn Vitals Vitals Vital Signs Date Time Temp Pulse Resp B/P (MAP) Pulse Ox O2 Delivery O2 Flow Rate FiO2 11/13/20 16:00 Venturi Mask 11/13/20 15:00 121 28 158/98 (118) 94 11/13/20 11:55 98.1 98.1 11/13/20 11:20 12.0 Physical Exam General: Other (Sedated intubated) Heart: Other (Tachycardic) Lungs: Clear Abdomen: Soft Extremities: No clubbing, Other (He has mitts on) Skin: No rashes Labs LABS Laboratory Tests Test 11/13/20 07:35 11/13/20 07:55 11/13/20 10:15 O2 Saturation 94 % (92-99) 88 % (92-99) Arterial Blood pH 7.41 (7.35-7.45) 7.32 (7.35-7.45) Arterial Blood pCO2 at Patient Temp 45 mmHg (35-46) 61 mmHg (35-46) Arterial Blood pO2 at Patient Temp 69 mmHg (75-108) 61 mmHg (75-108) Arterial Blood HCO3 28 mmol/L (21-28) 31 mmol/L (21-28) Arterial Blood Base Excess 3 mmol/L (-3-3) 3 mmol/L (-3-3) FiO2 35 35 White Blood Count 10.0 x10^3/uL (4.0-11.0) Red Blood Count 3.68 x10^6/uL (4.30-5.70) Hemoglobin 11.8 g/dL (13.0-17.5) Hematocrit 35.5 % (39.0-53.0) Mean Corpuscular Volume 97 fL (79-100) Mean Corpuscular Hemoglobin 32 pg (25-35) Mean Corpuscular Hemoglobin Concent 33 g/dL (31-37) Red Cell Distribution Width 13.0 % (11.5-14.5) Platelet Count 271 x10^3/uL (140-400) Sodium Level 138 mmol/L (136-145) Potassium Level 3.9 mmol/L (3.5-5.1) Chloride Level 103 mmol/L (98-107) Carbon Dioxide Level 31 mmol/L (21-32) Anion Gap 4 (6-14) Blood Urea Nitrogen 9 mg/dL (8-26) Creatinine 0.4 mg/dL (0.7-1.3) Estimated GFR (Cockcroft-Gault) 222.5 BUN/Creatinine Ratio 23 (6-20) Glucose Level 126 mg/dL (70-99) Calcium Level 7.8 mg/dL (8.5-10.1) Magnesium Level 1.6 mg/dL (1.8-2.4) Total Bilirubin 0.3 mg/dL (0.2-1.0) Aspartate Amino Transf (AST/SGOT) 13 U/L (15-37) Alanine Aminotransferase (ALT/SGPT) 14 U/L (16-63) Alkaline Phosphatase 52 U/L (46-116) Total Protein 5.2 g/dL (6.4-8.2) Albumin 1.6 g/dL (3.4-5.0) Albumin/Globulin Ratio 0.4 (1.0-1.7) Comment Review of Relevant I have reviewed the following items kye (where applicable) has been applied. Labs Laboratory Tests Test 11/12/20 05:00 11/12/20 08:00 11/13/20 07:35 11/13/20 07:55 White Blood Count 11.0 x10^3/uL (4.0-11.0) 10.0 x10^3/uL (4.0-11.0) Red Blood Count 3.42 x10^6/uL (4.30-5.70) 3.68 x10^6/uL (4.30-5.70) Hemoglobin 10.8 g/dL (13.0-17.5) 11.8 g/dL (13.0-17.5) Hematocrit 33.1 % (39.0-53.0) 35.5 % (39.0-53.0) Mean Corpuscular Volume 97 fL (79-100) 97 fL (79-100) Mean Corpuscular Hemoglobin 32 pg (25-35) 32 pg (25-35) Mean Corpuscular Hemoglobin Concent 33 g/dL (31-37) 33 g/dL (31-37) Red Cell Distribution Width 13.2 % (11.5-14.5) 13.0 % (11.5-14.5) Platelet Count 256 x10^3/uL (140-400) 271 x10^3/uL (140-400) Neutrophils (%) (Auto) 71 % (31-73) Lymphocytes (%) (Auto) 11 % (24-48) Monocytes (%) (Auto) 12 % (0-9) Eosinophils (%) (Auto) 6 % (0-3) Basophils (%) (Auto) 1 % (0-3) Neutrophils # (Auto) 7.8 x10^3/uL (1.8-7.7) Lymphocytes # (Auto) 1.2 x10^3/uL (1.0-4.8) Monocytes # (Auto) 1.4 x10^3/uL (0.0-1.1) Eosinophils # (Auto) 0.6 x10^3/uL (0.0-0.7) Basophils # (Auto) 0.1 x10^3/uL (0.0-0.2) Sodium Level 138 mmol/L (136-145) 138 mmol/L (136-145) Potassium Level 3.7 mmol/L (3.5-5.1) 3.9 mmol/L (3.5-5.1) Chloride Level 103 mmol/L (98-107) 103 mmol/L (98-107) Carbon Dioxide Level 31 mmol/L (21-32) 31 mmol/L (21-32) Anion Gap 4 (6-14) 4 (6-14) Blood Urea Nitrogen 8 mg/dL (8-26) 9 mg/dL (8-26) Creatinine 0.5 mg/dL (0.7-1.3) 0.4 mg/dL (0.7-1.3) Estimated GFR (Cockcroft-Gault) 172.0 222.5 BUN/Creatinine Ratio 16 (6-20) 23 (6-20) Glucose Level 120 mg/dL (70-99) 126 mg/dL (70-99) Calcium Level 8.0 mg/dL (8.5-10.1) 7.8 mg/dL (8.5-10.1) Total Bilirubin 0.3 mg/dL (0.2-1.0) 0.3 mg/dL (0.2-1.0) Aspartate Amino Transf (AST/SGOT) 12 U/L (15-37) 13 U/L (15-37) Alanine Aminotransferase (ALT/SGPT) 10 U/L (16-63) 14 U/L (16-63) Alkaline Phosphatase 39 U/L (46-116) 52 U/L (46-116) Total Protein 4.8 g/dL (6.4-8.2) 5.2 g/dL (6.4-8.2) Albumin 1.5 g/dL (3.4-5.0) 1.6 g/dL (3.4-5.0) Albumin/Globulin Ratio 0.5 (1.0-1.7) 0.4 (1.0-1.7) O2 Saturation 92 % (92-99) 94 % (92-99) Arterial Blood pH 7.40 (7.35-7.45) 7.41 (7.35-7.45) Arterial Blood pCO2 at Patient Temp 53 mmHg (35-46) 45 mmHg (35-46) Arterial Blood pO2 at Patient Temp 66 mmHg (75-108) 69 mmHg (75-108) Arterial Blood HCO3 32 mmol/L (21-28) 28 mmol/L (21-28) Arterial Blood Base Excess 6 mmol/L (-3-3) 3 mmol/L (-3-3) FiO2 35%+5 35 Magnesium Level 1.6 mg/dL (1.8-2.4) Test 11/13/20 10:15 O2 Saturation 88 % (92-99) Arterial Blood pH 7.32 (7.35-7.45) Arterial Blood pCO2 at Patient Temp 61 mmHg (35-46) Arterial Blood pO2 at Patient Temp 61 mmHg (75-108) Arterial Blood HCO3 31 mmol/L (21-28) Arterial Blood Base Excess 3 mmol/L (-3-3) FiO2 35 Laboratory Tests Test 11/13/20 07:35 11/13/20 07:55 11/13/20 10:15 O2 Saturation 94 % (92-99) 88 % (92-99) Arterial Blood pH 7.41 (7.35-7.45) 7.32 (7.35-7.45) Arterial Blood pCO2 at Patient Temp 45 mmHg (35-46) 61 mmHg (35-46) Arterial Blood pO2 at Patient Temp 69 mmHg (75-108) 61 mmHg (75-108) Arterial Blood HCO3 28 mmol/L (21-28) 31 mmol/L (21-28) Arterial Blood Base Excess 3 mmol/L (-3-3) 3 mmol/L (-3-3) FiO2 35 35 White Blood Count 10.0 x10^3/uL (4.0-11.0) Red Blood Count 3.68 x10^6/uL (4.30-5.70) Hemoglobin 11.8 g/dL (13.0-17.5) Hematocrit 35.5 % (39.0-53.0) Mean Corpuscular Volume 97 fL (79-100) Mean Corpuscular Hemoglobin 32 pg (25-35) Mean Corpuscular Hemoglobin Concent 33 g/dL (31-37) Red Cell Distribution Width 13.0 % (11.5-14.5) Platelet Count 271 x10^3/uL (140-400) Sodium Level 138 mmol/L (136-145) Potassium Level 3.9 mmol/L (3.5-5.1) Chloride Level 103 mmol/L (98-107) Carbon Dioxide Level 31 mmol/L (21-32) Anion Gap 4 (6-14) Blood Urea Nitrogen 9 mg/dL (8-26) Creatinine 0.4 mg/dL (0.7-1.3) Estimated GFR (Cockcroft-Gault) 222.5 BUN/Creatinine Ratio 23 (6-20) Glucose Level 126 mg/dL (70-99) Calcium Level 7.8 mg/dL (8.5-10.1) Magnesium Level 1.6 mg/dL (1.8-2.4) Total Bilirubin 0.3 mg/dL (0.2-1.0) Aspartate Amino Transf (AST/SGOT) 13 U/L (15-37) Alanine Aminotransferase (ALT/SGPT) 14 U/L (16-63) Alkaline Phosphatase 52 U/L (46-116) Total Protein 5.2 g/dL (6.4-8.2) Albumin 1.6 g/dL (3.4-5.0) Albumin/Globulin Ratio 0.4 (1.0-1.7) Medications Current Medications Fentanyl Citrate 30 ml @ 0 mls/hr CONT PRN IV SEE PROTOCOL Last administered on 11/12/20at 22:57; Start 11/06/20 at 13:45 Propofol 100 ml @ 0 mls/hr CONT PRN IV PER PROTOCOL Last administered on 11/12/20at 21:50; Start 11/06/20 at 13:45 Midazolam HCl 100 ml @ 0 mls/hr CONT PRN IV SEE PROTOCOL Last administered on 11/08/20at 09:41; Start 11/06/20 at 14:00 Piperacillin Sod/ Tazobactam Sod (Zosyn Per Pharmacy) 1 each PRN DAILY PRN MC SEE COMMENTS; Start 11/06/20 at 18:00 Famotidine (Pepcid) 20 mg QHS PO Last administered on 11/06/20at 23:11; Start 11/06/20 at 21:00; Stop 11/07/20 at 12:59; Status DC Sodium Chloride 1,000 ml @ 125 mls/hr Q8H IV Last administered on 11/13/20at 07:49; Start 11/06/20 at 18:00 Piperacillin Sod/ Tazobactam Sod 3.375 gm/Sodium Chloride 50 ml @ 100 mls/hr Q6HRS IV Last administered on 11/13/20at 11:59; Start 11/06/20 at 18:00 Enoxaparin Sodium (Lovenox 40mg Syringe) 40 mg Q24H SQ Last administered on 11/12/20at 22:19; Start 11/07/20 at 21:00 Famotidine (Pepcid) 20 mg BID PO Last administered on 11/13/20at 09:01; Start 11/07/20 at 21:00 Potassium Bicarbonate (Potassium Effervescent Tablet) 40 meq 1X ONCE FT Last administered on 11/08/20at 13:55; Start 11/08/20 at 14:30; Stop 11/08/20 at 14:31; Status DC Magnesium Sulfate 100 ml @ 50 mls/hr 1X ONCE IV Last administered on 11/08/20at 14:01; Start 11/08/20 at 14:30; Stop 11/08/20 at 16:29; Status DC Dexmedetomidine HCl 400 mcg/ Sodium Chloride 100 ml @ 0 mls/hr CONT PRN IV PER PROTOCOL Last administered on 11/13/20at 04:57; Start 11/09/20 at 09:45 Sodium Chloride 500 ml @ 500 mls/hr 1X PRN PRN IV SEE COMMENTS; Start 11/09/20 at 09:45 Atropine Sulfate (ATROPINE 0.5mg SYRINGE) 0.5 mg PRN Q5MIN PRN IV SEE COMMENTS; Start 11/09/20 at 09:45 Haloperidol Lactate (Haldol Inj) 5 mg Q8HRS IVP ; Start 11/09/20 at 14:00; Stop 11/09/20 at 13:09; Status DC Potassium Bicarbonate (Potassium Effervescent Tablet) 40 meq 1X ONCE PO Last administered on 11/09/20at 16:55; Start 11/09/20 at 16:30; Stop 11/09/20 at 16:34; Status DC Magnesium Sulfate 100 ml @ 50 mls/hr 1X ONCE IV Last administered on 11/09/20at 18:30; Start 11/09/20 at 18:30; Stop 11/09/20 at 20:29; Status DC Hydralazine HCl (Apresoline Inj) 10 mg PRN Q4HRS PRN IVP ELEVATED BP, SEE COMMENTS Last administered on 11/10/20at 09:49; Start 11/10/20 at 09:00 Magnesium Sulfate 100 ml @ 50 mls/hr 1X ONCE IV Last administered on 11/11/20at 11:30; Start 11/11/20 at 11:30; Stop 11/11/20 at 13:29; Status DC Acetaminophen (Tylenol) 650 mg PRN Q6HRS PRN NG MILD PAIN / TEMP > 100.3'F Last administered on 11/12/20at 17:37; Start 11/12/20 at 17:30 Albuterol/ Ipratropium (Duoneb) 3 ml STK-MED ONCE .ROUTE ; Start 11/13/20 at 11:24; Stop 11/13/20 at 11:24; Status DC Albuterol/ Ipratropium (Duoneb) 3 ml RTQID NEB Last administered on 11/13/20at 15:58; Start 11/13/20 at 12:15 Budesonide (Pulmicort) 0.5 mg RTBID NEB ; Start 11/13/20 at 20:00 Lorazepam (Ativan Inj) 2 mg PRN Q4HRS PRN IVP ANXIETY / AGITATION; Start 11/13/20 at 15:30 Thiamine HCl 100 mg/Dextrose 51 ml @ 102 mls/hr 1X ONCE IV Last administered on 11/13/20at 15:48; Start 11/13/20 at 15:30; Stop 11/13/20 at 15:59; Status DC Multivitamins (Thera M Plus) 1 tab DAILY PO ; Start 11/14/20 at 09:00 Thiamine Mononitrate (Vitamin B-1) 100 mg DAILY PO ; Start 11/14/20 at 09:00 Saliva Substitute (Biotene Moisturizing Mouth) 2 spray PRN Q15MIN PRN PO DRY MOUTH; Start 11/13/20 at 15:30 Active Scripts Active Reported Invega Sustenna (Paliperidone Palmitate) 117 Mg/0.75 Ml Disp.syrin 0 IM QMONTH 30 Days Vitals/I & O Vital Sign - Last 24 Hours 11/12/20 11/12/20 11/12/20 11/12/20 17:00 17:59 19:00 20:00 Temp 98.7 98.7 Pulse 67 72 66 62 Resp 20 17 16 19 B/P (MAP) 110/76 (87) 110/71 (84) 119/81 (94) 119/80 (93) Pulse Ox 97 84 97 97 O2 Delivery Ventilator Ventilator Ventilator Ventilator 11/12/20 11/12/20 11/12/20 11/12/20 21:00 21:15 22:00 22:57 Pulse 62 58 Resp 18 20 B/P (MAP) 122/79 (93) 119/79 (92) Pulse Ox 98 98 98 95 O2 Delivery Ventilator Ventilator Ventilator Ventilator 11/12/20 11/12/20 11/13/20 11/13/20 23:00 23:27 00:00 00:28 Temp 99.0 99.0 Pulse 62 54 Resp 23 22 B/P (MAP) 111/75 (87) 105/73 (84) Pulse Ox 94 95 98 98 O2 Delivery Ventilator Ventilator Ventilator Ventilator 11/13/20 11/13/20 11/13/20 11/13/20 01:00 02:00 03:00 03:26 Pulse 52 50 50 Resp 24 16 16 B/P (MAP) 118/80 (93) 143/90 (107) 144/89 (107) Pulse Ox 99 100 99 98 O2 Delivery Ventilator Ventilator Ventilator Ventilator 11/13/20 11/13/20 11/13/20 11/13/20 04:00 05:00 06:00 07:00 Temp 99.0 99.0 Pulse 56 56 54 58 Resp 16 16 16 16 B/P (MAP) 109/75 (86) 92/64 (73) 126/81 (96) 111/77 (88) Pulse Ox 94 97 97 97 O2 Delivery Ventilator Ventilator Ventilator Ventilator 11/13/20 11/13/20 11/13/20 11/13/20 07:35 08:00 09:00 09:40 Temp 99.5 99.5 Pulse 54 70 Resp 16 16 B/P (MAP) 120/82 (95) 145/92 (109) Pulse Ox 98 98 98 O2 Delivery Ventilator Ventilator Ventilator Ventilator 11/13/20 11/13/20 11/13/20 11/13/20 10:00 11:00 11:20 11:55 Temp 98.1 98.1 Pulse 104 84 99 Resp 30 20 25 B/P (MAP) 119/76 (90) 113/82 (92) 131/84 (100) Pulse Ox 93 93 92 O2 Delivery Pressure Support on vent Ventilator Venturi Mask Venturi Mask O2 Flow Rate 12.0 11/13/20 11/13/20 11/13/20 11/13/20 13:00 14:00 15:00 16:00 Pulse 104 108 121 Resp 19 24 28 B/P (MAP) 139/95 (110) 169/104 (125) 158/98 (118) Pulse Ox 95 95 94 O2 Delivery Venturi Mask Venturi Mask Venturi Mask Venturi Mask Intake and Output 11/12/20 11/12/20 11/13/20 15:00 23:00 07:00 Intake Total 250 ml 3532 ml 2028 ml Output Total 950 ml 1550 ml 1150 ml Balance -700 ml 1982 ml 878 ml Nutrition Consultation Dietary Evaluation: Recommendations by RD: Dietary education by RD, Increase Calorie Intake Comments: Continue w/TFs as ordered: VitalAF@goal rate 45 ml/hr w/100 ml water flushes q4 hrs Expected Outcomes/Goals: New goal 11/08: TF infusion to meet >65% est needs while intubated - met, goal ongoing Malnutrition Findings: Body Fat Depletion (Non Severe: Mild Depletion Weight Status: Underweight Justicifation of Admission Dx: Justifications for Admission: Justification of Admission Dx: Yes (COPD, hypoxia, intubated) EMILY LAMBERT MD Nov 13, 2020 16:14
[2020-11-13] MEDS: hydrALAZINE 20 MG/ML VIAL. IVP PRN (16:16)
[2020-11-13] MEDS ORDERED: METOPROLOL IV PUSH 5 MG/5 ML VIAL. IVP PRN (17:15)
[2020-11-13] MEDS: BUDESONIDE 0.5 MG/2 ML NEBU. NEB SCH (20:01)
[2020-11-13] MEDS ORDERED: MAGNESIUM SULFATE 4GM 100 ML IV ONE (20:30)
[2020-11-13] MEDS: ENOXAPARIN 40 MG/0.4 ML SYRINGE. SQ SCH (20:48)
[2020-11-14] VITALS (14 sets, daily range): BP systolic 114–163; BP diastolic 75–108
[2020-11-14] MEDS: IV NORMAL SALINE 1000ML BAG 1,000 ML IV SCH ×4 (04:40→20:21)
[2020-11-14] MEDS: PIPERACILLIN/TAZOBACTAM 3.375 GM in IV NORMAL SALINE 50ML 50 ML IV SCH ×3 (05:30→18:06)
[2020-11-14] MEDS: BUDESONIDE 0.5 MG/2 ML NEBU. NEB SCH ×2 (08:05→21:40)
[2020-11-14] MEDS: IPRATRPIUM/ALBUTEROL 0.5/2.5MG 3 ML NEBU. NEB SCH ×4 (08:05→21:41)
[2020-11-14] MEDS: hydrALAZINE 20 MG/ML VIAL. IVP PRN ×2 (08:09→11:46)
--- NOTE | 2020-11-14 08:10 | RAD ---
XR CHEST 1V 11/14/2020 5:34 AM INDICATION: Tachycardia, trending 116 COMPARISON: None available TECHNIQUE: Portable frontal view of the chest is provided. FINDINGS: The cardiomediastinal silhouette is within normal limits. Lungs are clear. Small left pleural effusion with adjacent compressive atelectasis versus scarring in the left pleural effusion with adjacent compressive atelectasis versus infiltrate. Interval extubation and removal of nasogastric tube. Pulmonary emphysematous changes are noted. No suspicious osseous abnormality. IMPRESSION: Interval extubation and removal of nasogastric tube. Aeration of lungs appears similar to prior examination with persistent small left pleural effusion with adjacent compressive atelectasis versus infiltrate. Electronically signed by: Ronit Olivo MD (11/14/2020 8:07 AM) [id number]
[2020-11-14] MEDS: THIAMINE 100 MG TABLET. PO SCH (08:45)
[2020-11-14] MEDS: MULTIVITAMIN with MINERAL TABLET. PO SCH (08:45)
[2020-11-14] MEDS: FAMOTIDINE 20 MG TABLET. PO SCH ×2 (08:45→20:20)
[2020-11-14 09:21] LABS: BASO % 0 % (0-3); EOS # 0.1 x10^3/uL (0.0-0.7); EOS % 1 % (0-3); HEMATOCRIT 36.1 % (39.0-53.0); HEMOGLOBIN 11.7 g/dL (13.0-17.5); LYMPH # 0.8 x10^3/uL (1.0-4.8); LYMPH % 6 % (24-48); MEAN CORPUSCULAR HEMOGLOBIN 31 pg (25-35); MEAN CORPUSCULAR HGB CONC 33 g/dL (31-37); MEAN CORPUSCULAR VOLUME 96 fL (79-100); MONO # 1.5 x10^3/uL (0.0-1.1); MONO % 10 % (0-9); NEUT # 11.8 x10^3/uL (1.8-7.7); NEUT % 83 % (31-73); PLATELET COUNT 335 x10^3/uL (140-400); RED BLOOD COUNT 3.77 x10^6/uL (4.30-5.70); WHITE BLOOD COUNT 14.2 x10^3/uL (4.0-11.0)
--- NOTE | 2020-11-14 09:34 | PDOC ---
PULMONARY PROGRESS NOTES DATE: 11/14/20 TIME: 09:30 Subjective Pt. was extubated on 11/13, now on 4 liters N/C no increased SOA or increased cough no overnight events Vitals Vital Signs Date Time Temp Pulse Resp B/P (MAP) Pulse Ox O2 Delivery O2 Flow Rate FiO2 11/14/20 08:09 99 163/102 11/14/20 08:08 94 Nasal Cannula 4.0 11/14/20 08:00 98.4 33 98.4 ROS: No Nausea, No Chest Pain, No Abdominal Pain, No Increase Cough General: Alert, Oriented X4 HEENT: Other (nc at perrl nose clear orally intubated neck no lad no thyromegaly) Lungs: Clear Cardiovascular: S1, S2 Abdomen: Soft, Non-tender, Other Neuro Exam: Alert, Oriented Extremities: No Edema Skin: Warm, Dry Labs Laboratory Tests Test 11/13/20 07:35 11/13/20 07:55 11/13/20 10:15 O2 Saturation 94 % (92-99) 88 % (92-99) Arterial Blood pH 7.41 (7.35-7.45) 7.32 (7.35-7.45) Arterial Blood pCO2 at Patient Temp 45 mmHg (35-46) 61 mmHg (35-46) Arterial Blood pO2 at Patient Temp 69 mmHg (75-108) 61 mmHg (75-108) Arterial Blood HCO3 28 mmol/L (21-28) 31 mmol/L (21-28) Arterial Blood Base Excess 3 mmol/L (-3-3) 3 mmol/L (-3-3) FiO2 35 35 White Blood Count 10.0 x10^3/uL (4.0-11.0) Red Blood Count 3.68 x10^6/uL (4.30-5.70) Hemoglobin 11.8 g/dL (13.0-17.5) Hematocrit 35.5 % (39.0-53.0) Mean Corpuscular Volume 97 fL (79-100) Mean Corpuscular Hemoglobin 32 pg (25-35) Mean Corpuscular Hemoglobin Concent 33 g/dL (31-37) Red Cell Distribution Width 13.0 % (11.5-14.5) Platelet Count 271 x10^3/uL (140-400) Sodium Level 138 mmol/L (136-145) Potassium Level 3.9 mmol/L (3.5-5.1) Chloride Level 103 mmol/L (98-107) Carbon Dioxide Level 31 mmol/L (21-32) Anion Gap 4 (6-14) Blood Urea Nitrogen 9 mg/dL (8-26) Creatinine 0.4 mg/dL (0.7-1.3) Estimated GFR (Cockcroft-Gault) 222.5 BUN/Creatinine Ratio 23 (6-20) Glucose Level 126 mg/dL (70-99) Calcium Level 7.8 mg/dL (8.5-10.1) Magnesium Level 1.6 mg/dL (1.8-2.4) Total Bilirubin 0.3 mg/dL (0.2-1.0) Aspartate Amino Transf (AST/SGOT) 13 U/L (15-37) Alanine Aminotransferase (ALT/SGPT) 14 U/L (16-63) Alkaline Phosphatase 52 U/L (46-116) Total Protein 5.2 g/dL (6.4-8.2) Albumin 1.6 g/dL (3.4-5.0) Albumin/Globulin Ratio 0.4 (1.0-1.7) Laboratory Tests Test 11/13/20 10:15 O2 Saturation 88 % (92-99) Arterial Blood pH 7.32 (7.35-7.45) Arterial Blood pCO2 at Patient Temp 61 mmHg (35-46) Arterial Blood pO2 at Patient Temp 61 mmHg (75-108) Arterial Blood HCO3 31 mmol/L (21-28) Arterial Blood Base Excess 3 mmol/L (-3-3) FiO2 35 Medications Active Scripts Medications Dose Route/Sig Max Daily Dose Days Date Category Invega Sustenna (Paliperidone Palmitate) 117 Mg/0.75 Ml Disp.syrin 0 IM QMONTH 30 11/07/20 Reported Comments CXR IMPRESSION: Interval extubation and removal of nasogastric tube. Aeration of lungs appears similar to prior examination with persistent small left pleural effusion with adjacent compressive atelectasis versus infiltrate. Impression . IMPRESSION: 1. [id number] hypercapnic respiratory failure secondary to multifactorial etiologies including acute toxic encephalopathy, worsening chronic obstructive pulmonary disease with hypercapnia and likely contributed by hyponatremia.-- improved now on N/C, extubated 11/13/20 2. Long history of tobacco use up to 2 packs per day. Has chronic hypercapnia, likely has severe chronic obstructive pulmonary disease. Chest x-ray has shown severely hyperinflated lungs. 3. Alcohol abuse and possibility of alcohol withdrawal would certainly be in the differential diagnosis. 4. Underlying schizophrenia. 5. Abnormal CT chest with faint patchy interstitial infiltrates in the right lower lobe. Likely aspiration pneumonia. 6. Hyponatremia, likely secondary to alcoholism--resolved Plan . RECOMMENDATIONS: Continue supplemental oxygen on 4 liters N/C, extubated on 11/13/20 Follow CXR PRN --reviewed Continue zosyn for full course started 11/06 Will need 6 min walk at time of discharge CIWA protocol once off sedation Physical therapy/Occupational Therapy/speech therapy DVT/GI PPX D/W RN and RT ok to transfer out of ICU from our stand point, we will see PRN please call with questions or concerns YANE AVILA MD Nov 14, 2020 09:34
[2020-11-14 09:43] LABS: ALBUMIN/GLOBULIN RATIO 0.5 (1.0-1.7); ALK PHOS 59 U/L (46-116); ALT (SGPT) 14 U/L (16-63); ANION GAP 9 (6-14); AST (SGOT) 18 U/L (15-37); BLOOD UREA NITROGEN 6 mg/dL (8-26); BUN/CREATININE RATIO 20 (6-20); CALCIUM 8.2 mg/dL (8.5-10.1); CARBON DIOXIDE 29 mmol/L (21-32); CHLORIDE 99 mmol/L (98-107); CREATININE 0.3 mg/dL (0.7-1.3); GFR > 300.0; GLUCOSE 92 mg/dL (70-99); SODIUM 137 mmol/L (136-145); TOTAL BILIRUBIN 0.8 mg/dL (0.2-1.0); TOTAL PROTEIN 5.7 g/dL (6.4-8.2)
--- NOTE | 2020-11-14 12:15 | NUR ---
Patient report called to ALYSA Moyer, transportation called to transport patient via wheelchair to [facility]. Patient left [id number] at 1215 today. Vital signs stable.
--- NOTE | 2020-11-14 12:50 | PDOC ---
PROGRESS NOTES Date of Service: DATE: 11/14/20 TIME: 12:48 Chief Complaint Chief Complaint Acute hypoxic hypercapnic respiratory failure requiring intubation and sedation COPD, acute exacerbation, Hyponatremia, hypovolemic Acute encephalopathy, toxic, Schizophrenia Tobacco abuse Alcohol abuse, concer for withdrawl, History of Present Illness History of Present Illness 11/14, still confused and weak, family reports he was a little weak bnefore this illness transfer out of ICU to floor still tachycardia in 112 range, PRN ativan, EtOH withdrawl precautions better, start Pt an OT swallowing , passed swallow, now on reg diet, 11/13/2020 Patient seen and examined in the ICU His father is present He is now on less oxygen extubatd he was awake and talkative and wanting food for my intervieew, then was hard asleep 10 minutes later when I talked to the nurse about him concern for etoh withdrawl, ativan avail Patient on IV Zosyn Vitals Vitals Vital Signs Date Time Temp Pulse Resp B/P (MAP) Pulse Ox O2 Delivery O2 Flow Rate FiO2 11/14/20 12:20 98.4 118 18 136/84 (101) 93 Nasal Cannula 2.0 98.4 Physical Exam General: Alert, Oriented X3, Cooperative, No acute distress, Other ( ) Heart: Regular rate, Normal S1, No murmurs, Other (Tachycardic) Lungs: Clear Abdomen: Soft Extremities: No clubbing, Other (He has mitts on) Skin: No rashes Labs LABS Laboratory Tests Test 11/14/20 08:57 White Blood Count 14.2 x10^3/uL (4.0-11.0) Red Blood Count 3.77 x10^6/uL (4.30-5.70) Hemoglobin 11.7 g/dL (13.0-17.5) Hematocrit 36.1 % (39.0-53.0) Mean Corpuscular Volume 96 fL (79-100) Mean Corpuscular Hemoglobin 31 pg (25-35) Mean Corpuscular Hemoglobin Concent 33 g/dL (31-37) Red Cell Distribution Width 13.0 % (11.5-14.5) Platelet Count 335 x10^3/uL (140-400) Neutrophils (%) (Auto) 83 % (31-73) Lymphocytes (%) (Auto) 6 % (24-48) Monocytes (%) (Auto) 10 % (0-9) Eosinophils (%) (Auto) 1 % (0-3) Basophils (%) (Auto) 0 % (0-3) Neutrophils # (Auto) 11.8 x10^3/uL (1.8-7.7) Lymphocytes # (Auto) 0.8 x10^3/uL (1.0-4.8) Monocytes # (Auto) 1.5 x10^3/uL (0.0-1.1) Eosinophils # (Auto) 0.1 x10^3/uL (0.0-0.7) Basophils # (Auto) 0.0 x10^3/uL (0.0-0.2) Sodium Level 137 mmol/L (136-145) Potassium Level 3.0 mmol/L (3.5-5.1) Chloride Level 99 mmol/L (98-107) Carbon Dioxide Level 29 mmol/L (21-32) Anion Gap 9 (6-14) Blood Urea Nitrogen 6 mg/dL (8-26) Creatinine 0.3 mg/dL (0.7-1.3) Estimated GFR (Cockcroft-Gault) > 300.0 BUN/Creatinine Ratio 20 (6-20) Glucose Level 92 mg/dL (70-99) Calcium Level 8.2 mg/dL (8.5-10.1) Magnesium Level 2.0 mg/dL (1.8-2.4) Total Bilirubin 0.8 mg/dL (0.2-1.0) Aspartate Amino Transf (AST/SGOT) 18 U/L (15-37) Alanine Aminotransferase (ALT/SGPT) 14 U/L (16-63) Alkaline Phosphatase 59 U/L (46-116) Total Protein 5.7 g/dL (6.4-8.2) Albumin 2.0 g/dL (3.4-5.0) Albumin/Globulin Ratio 0.5 (1.0-1.7) Review of Systems Review of Systems no n.v.d + erick wants to move around, too weak Comment Review of Relevant I have reviewed the following items kye (where applicable) has been applied. Labs Laboratory Tests Test 11/13/20 07:35 11/13/20 07:55 11/13/20 10:15 11/14/20 08:57 O2 Saturation 94 % (92-99) 88 % (92-99) Arterial Blood pH 7.41 (7.35-7.45) 7.32 (7.35-7.45) Arterial Blood pCO2 at Patient Temp 45 mmHg (35-46) 61 mmHg (35-46) Arterial Blood pO2 at Patient Temp 69 mmHg (75-108) 61 mmHg (75-108) Arterial Blood HCO3 28 mmol/L (21-28) 31 mmol/L (21-28) Arterial Blood Base Excess 3 mmol/L (-3-3) 3 mmol/L (-3-3) FiO2 35 35 White Blood Count 10.0 x10^3/uL (4.0-11.0) 14.2 x10^3/uL (4.0-11.0) Red Blood Count 3.68 x10^6/uL (4.30-5.70) 3.77 x10^6/uL (4.30-5.70) Hemoglobin 11.8 g/dL (13.0-17.5) 11.7 g/dL (13.0-17.5) Hematocrit 35.5 % (39.0-53.0) 36.1 % (39.0-53.0) Mean Corpuscular Volume 97 fL (79-100) 96 fL (79-100) Mean Corpuscular Hemoglobin 32 pg (25-35) 31 pg (25-35) Mean Corpuscular Hemoglobin Concent 33 g/dL (31-37) 33 g/dL (31-37) Red Cell Distribution Width 13.0 % (11.5-14.5) 13.0 % (11.5-14.5) Platelet Count 271 x10^3/uL (140-400) 335 x10^3/uL (140-400) Sodium Level 138 mmol/L (136-145) 137 mmol/L (136-145) Potassium Level 3.9 mmol/L (3.5-5.1) 3.0 mmol/L (3.5-5.1) Chloride Level 103 mmol/L (98-107) 99 mmol/L (98-107) Carbon Dioxide Level 31 mmol/L (21-32) 29 mmol/L (21-32) Anion Gap 4 (6-14) 9 (6-14) Blood Urea Nitrogen 9 mg/dL (8-26) 6 mg/dL (8-26) Creatinine 0.4 mg/dL (0.7-1.3) 0.3 mg/dL (0.7-1.3) Estimated GFR (Cockcroft-Gault) 222.5 > 300.0 BUN/Creatinine Ratio 23 (6-20) 20 (6-20) Glucose Level 126 mg/dL (70-99) 92 mg/dL (70-99) Calcium Level 7.8 mg/dL (8.5-10.1) 8.2 mg/dL (8.5-10.1) Magnesium Level 1.6 mg/dL (1.8-2.4) 2.0 mg/dL (1.8-2.4) Total Bilirubin 0.3 mg/dL (0.2-1.0) 0.8 mg/dL (0.2-1.0) Aspartate Amino Transf (AST/SGOT) 13 U/L (15-37) 18 U/L (15-37) Alanine Aminotransferase (ALT/SGPT) 14 U/L (16-63) 14 U/L (16-63) Alkaline Phosphatase 52 U/L (46-116) 59 U/L (46-116) Total Protein 5.2 g/dL (6.4-8.2) 5.7 g/dL (6.4-8.2) Albumin 1.6 g/dL (3.4-5.0) 2.0 g/dL (3.4-5.0) Albumin/Globulin Ratio 0.4 (1.0-1.7) 0.5 (1.0-1.7) Neutrophils (%) (Auto) 83 % (31-73) Lymphocytes (%) (Auto) 6 % (24-48) Monocytes (%) (Auto) 10 % (0-9) Eosinophils (%) (Auto) 1 % (0-3) Basophils (%) (Auto) 0 % (0-3) Neutrophils # (Auto) 11.8 x10^3/uL (1.8-7.7) Lymphocytes # (Auto) 0.8 x10^3/uL (1.0-4.8) Monocytes # (Auto) 1.5 x10^3/uL (0.0-1.1) Eosinophils # (Auto) 0.1 x10^3/uL (0.0-0.7) Basophils # (Auto) 0.0 x10^3/uL (0.0-0.2) Laboratory Tests Test 11/14/20 08:57 White Blood Count 14.2 x10^3/uL (4.0-11.0) Red Blood Count 3.77 x10^6/uL (4.30-5.70) Hemoglobin 11.7 g/dL (13.0-17.5) Hematocrit 36.1 % (39.0-53.0) Mean Corpuscular Volume 96 fL (79-100) Mean Corpuscular Hemoglobin 31 pg (25-35) Mean Corpuscular Hemoglobin Concent 33 g/dL (31-37) Red Cell Distribution Width 13.0 % (11.5-14.5) Platelet Count 335 x10^3/uL (140-400) Neutrophils (%) (Auto) 83 % (31-73) Lymphocytes (%) (Auto) 6 % (24-48) Monocytes (%) (Auto) 10 % (0-9) Eosinophils (%) (Auto) 1 % (0-3) Basophils (%) (Auto) 0 % (0-3) Neutrophils # (Auto) 11.8 x10^3/uL (1.8-7.7) Lymphocytes # (Auto) 0.8 x10^3/uL (1.0-4.8) Monocytes # (Auto) 1.5 x10^3/uL (0.0-1.1) Eosinophils # (Auto) 0.1 x10^3/uL (0.0-0.7) Basophils # (Auto) 0.0 x10^3/uL (0.0-0.2) Sodium Level 137 mmol/L (136-145) Potassium Level 3.0 mmol/L (3.5-5.1) Chloride Level 99 mmol/L (98-107) Carbon Dioxide Level 29 mmol/L (21-32) Anion Gap 9 (6-14) Blood Urea Nitrogen 6 mg/dL (8-26) Creatinine 0.3 mg/dL (0.7-1.3) Estimated GFR (Cockcroft-Gault) > 300.0 BUN/Creatinine Ratio 20 (6-20) Glucose Level 92 mg/dL (70-99) Calcium Level 8.2 mg/dL (8.5-10.1) Magnesium Level 2.0 mg/dL (1.8-2.4) Total Bilirubin 0.8 mg/dL (0.2-1.0) Aspartate Amino Transf (AST/SGOT) 18 U/L (15-37) Alanine Aminotransferase (ALT/SGPT) 14 U/L (16-63) Alkaline Phosphatase 59 U/L (46-116) Total Protein 5.7 g/dL (6.4-8.2) Albumin 2.0 g/dL (3.4-5.0) Albumin/Globulin Ratio 0.5 (1.0-1.7) Medications Current Medications Fentanyl Citrate 30 ml @ 0 mls/hr CONT PRN IV SEE PROTOCOL Last administered on 11/12/20at 22:57; Start 11/06/20 at 13:45 Propofol 100 ml @ 0 mls/hr CONT PRN IV PER PROTOCOL Last administered on 11/12/20at 21:50; Start 11/06/20 at 13:45 Midazolam HCl 100 ml @ 0 mls/hr CONT PRN IV SEE PROTOCOL Last administered on 11/08/20at 09:41; Start 11/06/20 at 14:00 Piperacillin Sod/ Tazobactam Sod (Zosyn Per Pharmacy) 1 each PRN DAILY PRN MC SEE COMMENTS; Start 11/06/20 at 18:00 Famotidine (Pepcid) 20 mg QHS PO Last administered on 11/06/20at 23:11; Start 11/06/20 at 21:00; Stop 11/07/20 at 12:59; Status DC Sodium Chloride 1,000 ml @ 125 mls/hr Q8H IV Last administered on 11/14/20at 12:40; Start 11/06/20 at 18:00 Piperacillin Sod/ Tazobactam Sod 3.375 gm/Sodium Chloride 50 ml @ 100 mls/hr Q6HRS IV Last administered on 11/14/20at 11:46; Start 11/06/20 at 18:00 Enoxaparin Sodium (Lovenox 40mg Syringe) 40 mg Q24H SQ Last administered on 11/13/20at 20:48; Start 11/07/20 at 21:00 Famotidine (Pepcid) 20 mg BID PO Last administered on 11/13/20at 09:01; Start 11/07/20 at 21:00 Potassium Bicarbonate (Potassium Effervescent Tablet) 40 meq 1X ONCE FT Last administered on 11/08/20at 13:55; Start 11/08/20 at 14:30; Stop 11/08/20 at 14:31; Status DC Magnesium Sulfate 100 ml @ 50 mls/hr 1X ONCE IV Last administered on 11/08/20at 14:01; Start 11/08/20 at 14:30; Stop 11/08/20 at 16:29; Status DC Dexmedetomidine HCl 400 mcg/ Sodium Chloride 100 ml @ 0 mls/hr CONT PRN IV PER PROTOCOL Last administered on 11/13/20at 04:57; Start 11/09/20 at 09:45 Sodium Chloride 500 ml @ 500 mls/hr 1X PRN PRN IV SEE COMMENTS; Start 11/09/20 at 09:45 Atropine Sulfate (ATROPINE 0.5mg SYRINGE) 0.5 mg PRN Q5MIN PRN IV SEE COMMENTS; Start 11/09/20 at 09:45 Haloperidol Lactate (Haldol Inj) 5 mg Q8HRS IVP ; Start 11/09/20 at 14:00; Stop 11/09/20 at 13:09; Status DC Potassium Bicarbonate (Potassium Effervescent Tablet) 40 meq 1X ONCE PO Last administered on 11/09/20at 16:55; Start 11/09/20 at 16:30; Stop 11/09/20 at 16:34; Status DC Magnesium Sulfate 100 ml @ 50 mls/hr 1X ONCE IV Last administered on 11/09/20at 18:30; Start 11/09/20 at 18:30; Stop 11/09/20 at 20:29; Status DC Hydralazine HCl (Apresoline Inj) 10 mg PRN Q4HRS PRN IVP ELEVATED BP, SEE COMMENTS Last administered on 11/14/20at 11:46; Start 11/10/20 at 09:00 Magnesium Sulfate 100 ml @ 50 mls/hr 1X ONCE IV Last administered on 11/11/20at 11:30; Start 11/11/20 at 11:30; Stop 11/11/20 at 13:29; Status DC Acetaminophen (Tylenol) 650 mg PRN Q6HRS PRN NG MILD PAIN / TEMP > 100.3'F Last administered on 11/12/20at 17:37; Start 11/12/20 at 17:30 Albuterol/ Ipratropium (Duoneb) 3 ml STK-MED ONCE .ROUTE ; Start 11/13/20 at 11:24; Stop 11/13/20 at 11:24; Status DC Albuterol/ Ipratropium (Duoneb) 3 ml RTQID NEB Last administered on 11/14/20at 11:30; Start 11/13/20 at 12:15 Budesonide (Pulmicort) 0.5 mg RTBID NEB Last administered on 11/14/20at 08:05; Start 11/13/20 at 20:00 Lorazepam (Ativan Inj) 2 mg PRN Q4HRS PRN IVP ANXIETY / AGITATION; Start 11/13/20 at 15:30 Thiamine HCl 100 mg/Dextrose 51 ml @ 102 mls/hr 1X ONCE IV Last administered on 11/13/20at 15:48; Start 11/13/20 at 15:30; Stop 11/13/20 at 15:59; Status DC Multivitamins (Thera M Plus) 1 tab DAILY PO ; Start 11/14/20 at 09:00 Thiamine Mononitrate (Vitamin B-1) 100 mg DAILY PO ; Start 11/14/20 at 09:00 Saliva Substitute (Biotene Moisturizing Mouth) 2 spray PRN Q15MIN PRN PO DRY MOUTH; Start 11/13/20 at 15:30 Metoprolol Tartrate (Lopressor Vial) 5 mg PRN Q6HRS PRN IVP Tachy/HYPERTENSION Last administered on 11/13/20at 17:21; Start 11/13/20 at 17:15 Magnesium Sulfate 100 ml @ 25 mls/hr 1X ONCE IV Last administered on 11/13/20at 20:30; Start 11/13/20 at 20:30; Stop 11/14/20 at 00:29; Status DC Lorazepam (Ativan Inj) 2 mg PRN Q1HR PRN IV For CIWA 8-14; Start 11/14/20 at 08:45 Active Scripts Active Reported Invega Sustenna (Paliperidone Palmitate) 117 Mg/0.75 Ml Disp.syrin 0 IM QMONTH 30 Days Vitals/I & O Vital Sign - Last 24 Hours 11/13/20 11/13/20 11/13/20 11/13/20 13:00 14:00 15:00 16:00 Temp 98.6 98.6 Pulse 104 108 121 130 Resp 19 24 28 25 B/P (MAP) 139/95 (110) 169/104 (125) 158/98 (118) 175/105 (128) Pulse Ox 95 95 94 95 O2 Delivery Venturi Mask Venturi Mask Venturi Mask Venturi Mask 11/13/20 11/13/20 11/13/20 11/13/20 16:00 16:16 17:00 17:21 Pulse 130 140 140 Resp 21 B/P (MAP) 175/105 132/75 (94) 132/75 Pulse Ox 91 O2 Delivery Venturi Mask Venturi Mask 11/13/20 11/13/20 11/13/20 11/13/20 18:00 19:00 20:00 20:00 Temp 98.7 98.7 Pulse 121 126 132 Resp 20 27 B/P (MAP) 130/77 (94) 132/78 (96) 126/97 (107) Pulse Ox 93 91 88 O2 Delivery Venturi Mask Venturi Mask Venturi Mask Venturi Mask 11/13/20 11/13/20 11/13/20 11/13/20 20:01 21:00 22:00 23:00 Pulse 120 116 110 Resp 21 B/P (MAP) 141/81 (101) 137/89 (105) 140/46 (77) Pulse Ox 92 96 95 95 O2 Delivery Venturi Mask Venturi Mask Venturi Mask Venturi Mask O2 Flow Rate 10.0 11/14/20 11/14/20 11/14/20 11/14/20 00:00 00:00 01:00 02:00 Temp 98.7 98.7 Pulse 106 112 108 Resp 23 35 B/P (MAP) 126/75 (92) 122/77 (92) 138/80 (99) Pulse Ox 95 95 95 O2 Delivery Venturi Mask Venturi Mask Venturi Mask Venturi Mask 11/14/20 11/14/20 11/14/20 11/14/20 03:00 04:00 04:00 05:00 Temp 99.1 99.1 Pulse 102 100 108 Resp 28 31 27 B/P (MAP) 142/81 (101) 147/91 (109) 159/92 (114) Pulse Ox 94 96 95 O2 Delivery Venturi Mask Venturi Mask Venturi Mask Nasal Cannula O2 Flow Rate 4.0 11/14/20 11/14/20 11/14/20 11/14/20 06:00 07:00 08:00 08:00 Temp 98.4 98.4 Pulse 103 101 104 Resp 18 30 33 B/P (MAP) 150/98 (115) 158/100 (119) 163/102 (122) Pulse Ox 97 94 95 O2 Delivery Nasal Cannula Nasal Cannula Nasal Cannula Nasal Cannula O2 Flow Rate 4.0 4.0 4.0 4.0 11/14/20 11/14/20 11/14/20 11/14/20 08:05 08:08 08:09 11:00 Temp 98.4 98.4 Pulse 99 100 Resp 27 B/P (MAP) 163/102 159/101 (120) Pulse Ox 94 94 96 O2 Delivery Nasal Cannula Nasal Cannula Nasal Cannula O2 Flow Rate 4.0 4.0 2.0 11/14/20 11/14/20 11/14/20 11:31 11:46 12:20 Temp 98.4 98.4 Pulse 105 118 Resp 18 B/P (MAP) 163/100 136/84 (101) Pulse Ox 95 93 O2 Delivery Nasal Cannula Nasal Cannula O2 Flow Rate 2.0 2.0 Intake and Output 11/13/20 11/13/20 11/14/20 15:00 23:00 07:00 Intake Total 1022.05 ml 1901 ml 1435 ml Output Total 2790 ml 2250 ml 1175 ml Balance -1767.95 ml -349 ml 260 ml Nutrition Consultation Dietary Evaluation: Recommendations by RD: Dietary education by RD, Increase Calorie Intake Comments: Continue w/regular diet as ordered, honor food preferences, provide snacks as requested REC Ensure if PO intake <50% meals Expected Outcomes/Goals: New goal 11/08: TF infusion to meet >65% est needs while intubated - met, new goal established New goal 11/14: PO intake to meet >75% est needs Malnutrition Findings: Body Fat Depletion (Non Severe: Mild Depletion Weight Status: Underweight Justicifation of Admission Dx: Justifications for Admission: Justification of Admission Dx: Yes (COPD, hypoxia, intubated) EMILY LAMBERT MD Nov 14, 2020 12:50
--- NOTE | 2020-11-14 15:12 | NUR ---
SS following up with discharge planning. SS reviewed pt chart and discussed with pt RN. Pt is currently requiring oxygen via nasal canula at two liters. COVID19 negative. Pt on IV Zosyn. ST evaluated and pt now on PO diet. PT/OT ordered and PT recommended prison unit. SS met with pt's mother and father and discussed discharge planning and prison unit. Pt's mother and father requesting [facility] referral. SS phoned and faxed referral to [facility], ; fax [phone]. Pt transferred to room 434. Daja SHUKLA to follow.
[2020-11-14] MEDS: ENOXAPARIN 40 MG/0.4 ML SYRINGE. SQ SCH (20:23)
[2020-11-15] MEDS: PIPERACILLIN/TAZOBACTAM 3.375 GM in IV NORMAL SALINE 50ML 50 ML IV SCH ×2 (00:03→06:04)
--- NOTE | 2020-11-15 00:55 | NUR ---
ASSUMED CARE FROM DAY SHIFT PT LYING IN BED, ALERT TO SELF ONLY, UNABLE TO FOLLOW SIMPLE COMMAND,BED ALARM ON FOR SAFETY.
[2020-11-15 02:42] VITALS: BP 148/99
[2020-11-15] MEDS: IV NORMAL SALINE 1000ML BAG 1,000 ML IV SCH ×3 (03:25→06:05)
[2020-11-15 07:00] VITALS: BP 160/111
--- NOTE | 2020-11-15 07:20 | NUR ---
BED ALARM TRIGGERED, PT FOUND SITTING ON TRASH CAN HAVING BOWEL MOVEMENT , PT AWARE OF SELF , PLACE, REACHED FOR MOIST WIPES TO CLEAN SELF , PT ASSISTED WITH CLEANING PATIENT AND BACK TO BED. COMMODE PLACED IN ROOM BED ALARM ON . REPORT GIVEN TO DAYSHIFT.
--- NOTE | 2020-11-15 07:49 | PDOC ---
[employer] PROGRESS NOTE Date of Service DOS: DATE: 11/15/20 TIME: 07:47 Chief Complaint Chief Complaint A/P: Acute hypoxic hypercapnic respiratory failure requiring intubation and sedation COPD, acute exacerbation, Hyponatremia, hypovolemic Acute encephalopathy, toxic, Schizophrenia Tobacco abuse Alcohol abuse, concern for withdrawl, Abnormal CT chest with faint patchy interstitial infiltrates in the right lower lobe. Likely aspiration pneumonia. FEN - General diet PPX - lovenox CODE - FULL Dispo - extubated 11/13/20, transferred from ICU History of Present Illness History of Present Illness 11/12: on Vent. concern for etoh withdrawl, ativan avail. Patient on IV Zosyn 11/13: Extubated. He is now on less oxygen 11/14: still confused and weak, family reports he was a little weak before this illness. Transfer out of ICU to floor. swallowing , passed swallow, now on reg diet, Less confused still very weak. Shi catheter still in place. He is asked but hemoglobin to be cared for by nurses. Difficulty keep conversation becoming tangential or circumferential. Vitals/I&O Vitals/I&O: Vital Signs Date Time Temp Pulse Resp B/P (MAP) Pulse Ox O2 Delivery O2 Flow Rate FiO2 11/15/20 02:42 97.8 108 18 148/99 (115) 93 Nasal Cannula 2.0 97.8 I & O 11/14/20 11/14/20 11/15/20 15:00 23:00 07:00 Output Total 1050 ml 2200 ml Balance -1050 ml -2200 ml Physical Exam General: Alert, Oriented X3, Cooperative, No acute distress, Other ( ) Heart: Regular rate, Normal S1, No murmurs, Other (Tachycardic) Lungs: Clear Abdomen: Soft Extremities: No clubbing, Other (He has mitts on) Skin: No rashes Labs Labs: Laboratory Tests Test 11/14/20 08:57 White Blood Count 14.2 x10^3/uL (4.0-11.0) Red Blood Count 3.77 x10^6/uL (4.30-5.70) Hemoglobin 11.7 g/dL (13.0-17.5) Hematocrit 36.1 % (39.0-53.0) Mean Corpuscular Volume 96 fL (79-100) Mean Corpuscular Hemoglobin 31 pg (25-35) Mean Corpuscular Hemoglobin Concent 33 g/dL (31-37) Red Cell Distribution Width 13.0 % (11.5-14.5) Platelet Count 335 x10^3/uL (140-400) Neutrophils (%) (Auto) 83 % (31-73) Lymphocytes (%) (Auto) 6 % (24-48) Monocytes (%) (Auto) 10 % (0-9) Eosinophils (%) (Auto) 1 % (0-3) Basophils (%) (Auto) 0 % (0-3) Neutrophils # (Auto) 11.8 x10^3/uL (1.8-7.7) Lymphocytes # (Auto) 0.8 x10^3/uL (1.0-4.8) Monocytes # (Auto) 1.5 x10^3/uL (0.0-1.1) Eosinophils # (Auto) 0.1 x10^3/uL (0.0-0.7) Basophils # (Auto) 0.0 x10^3/uL (0.0-0.2) Sodium Level 137 mmol/L (136-145) Potassium Level 3.0 mmol/L (3.5-5.1) Chloride Level 99 mmol/L (98-107) Carbon Dioxide Level 29 mmol/L (21-32) Anion Gap 9 (6-14) Blood Urea Nitrogen 6 mg/dL (8-26) Creatinine 0.3 mg/dL (0.7-1.3) Estimated GFR (Cockcroft-Gault) > 300.0 BUN/Creatinine Ratio 20 (6-20) Glucose Level 92 mg/dL (70-99) Calcium Level 8.2 mg/dL (8.5-10.1) Magnesium Level 2.0 mg/dL (1.8-2.4) Total Bilirubin 0.8 mg/dL (0.2-1.0) Aspartate Amino Transf (AST/SGOT) 18 U/L (15-37) Alanine Aminotransferase (ALT/SGPT) 14 U/L (16-63) Alkaline Phosphatase 59 U/L (46-116) Total Protein 5.7 g/dL (6.4-8.2) Albumin 2.0 g/dL (3.4-5.0) Albumin/Globulin Ratio 0.5 (1.0-1.7) Comment Review of Relevant I have reviewed the following items kye (where applicable) has been applied. Justifications for Admission Other Justification JUAN PEREIRA MD Nov 15, 2020 07:49
[2020-11-15] MEDS: BUDESONIDE 0.5 MG/2 ML NEBU. NEB SCH ×2 (08:12→20:34)
[2020-11-15] MEDS: IPRATRPIUM/ALBUTEROL 0.5/2.5MG 3 ML NEBU. NEB SCH ×4 (08:12→20:34)
[2020-11-15] MEDS: FAMOTIDINE 20 MG TABLET. PO SCH ×2 (08:57→20:46)
[2020-11-15] MEDS: MULTIVITAMIN with MINERAL TABLET. PO SCH (08:57)
[2020-11-15] MEDS: THIAMINE 100 MG TABLET. PO SCH (08:57)
--- NOTE | 2020-11-15 10:02 | NUR ---
VAZQUEZ following. Discussed with RN, transfer from ICU late yesterday. VAZQUEZ discussed with Anne Marie CORADO), referral was sent to [facility] per parents choice. VAZQUEZ spoke with Rachel at [facility], she stated only half of the referral came through, so needs it sent again. VAZQUEZ faxed referral again to [facility]. VAZQUEZ will continue to follow. Addendum: 11/15/20 at 1601 by TOM SHUKLA [facility]Z tried multiple times to call Rachel at [facility] to determine acceptance decision. Finally was able to get through - [facility] declined to take pt. VAZQUEZ left voicemail for pt's father, Sohan. Awaiting return call. VAZQUEZ will continue to follow. Addendum: 11/15/20 at 1639 by TOM SHUKLA [facility]Z received a call back from pt's father, Sohan. He would like referral sent to [facility]. SW faxed referral to [facility]. Awaiting acceptance decision.
[2020-11-15 11:00] VITALS: BP 156/109
[2020-11-15] MEDS ORDERED: HALOPERIDOL LACTATE 5 MG/ML VIAL. IVP PRN (11:30)
[2020-11-15] MEDS: AMOXICILLIN/K CLAV 875/125MG TABLET. PO SCH ×2 (12:06→20:46)
[2020-11-15] MEDS ORDERED: POTASSIUM BICARB 20 MEQ EFFERVESCENT TABLET. PO ONE (12:30)
[2020-11-15 15:00] VITALS: BP 179/127
[2020-11-15 19:15] VITALS: BP 147/105
[2020-11-15] MEDS: LACTOBACILLUS RHAMNOSUS GG 1 CAPSULE. PO SCH (20:46)
[2020-11-15] MEDS: ENOXAPARIN 40 MG/0.4 ML SYRINGE. SQ SCH (20:47)
[2020-11-15] MEDS: ACETAMINOPHEN 650 MG/20.3 ML SOLUTION. PO PRN (20:47)
--- NOTE | 2020-11-15 21:22 | NUR ---
Pt has loose thoughts and rambles but knows where he is, who the President elected was and Name/ Addendum: 11/15/20 at 212 by JAMES CORREA RN RN Amended: Links added.
[2020-11-15 23:00] VITALS: BP 139/92
[2020-11-16] MEDS: hydrALAZINE 20 MG/ML VIAL. IVP PRN ×2 (02:31→08:42)
[2020-11-16 02:52] VITALS: BP 182/122
[2020-11-16 07:00] VITALS: BP 145/107
[2020-11-16] MEDS: IPRATRPIUM/ALBUTEROL 0.5/2.5MG 3 ML NEBU. NEB SCH ×2 (07:09→10:48)
[2020-11-16] MEDS: BUDESONIDE 0.5 MG/2 ML NEBU. NEB SCH (07:09)
[2020-11-16] MEDS: MULTIVITAMIN with MINERAL TABLET. PO SCH (09:00)
[2020-11-16] MEDS: FAMOTIDINE 20 MG TABLET. PO SCH (09:00)
[2020-11-16] MEDS: LACTOBACILLUS RHAMNOSUS GG 1 CAPSULE. PO SCH (09:00)
[2020-11-16] MEDS: AMOXICILLIN/K CLAV 875/125MG TABLET. PO SCH (09:00)
[2020-11-16] MEDS: THIAMINE 100 MG TABLET. PO SCH (09:00)
--- NOTE | 2020-11-16 09:44 | NUR ---
[facility]Z following. Discussed with RN, room air, regular diet. VAZQUEZ sent message to Dave at [facility] to determine if referral was received. Awaiting response. Pt is ready for discharge once placement can be found. VAZQUEZ will continue to follow. Addendum: 11/16/20 at 1055 by TOM SHUKLA VAZQUEZ received call from Dave at [facility], pt is clinically accepted at [facility]. VAZQUEZ notified Dr. Chiang, awaiting confirmation of discharge. VAZQUEZ will continue to follow. Addendum: 11/16/20 at 1335 by TOM SHUKLA Discharge orders and scripts faxed to [facility]. Pt will be collected at 1430. RN and family notified. No further SW needs.
[2020-11-16] MEDS ORDERED: cloNIDine HCL 0.1 MG TABLET PO PRN (10:45)
--- NOTE | 2020-11-16 10:50 | PDOC ---
[employer] PROGRESS NOTE Date of Service DOS: DATE: 11/16/20 TIME: 10:46 Chief Complaint Chief Complaint A/P: Acute hypoxic hypercapnic respiratory failure requiring intubation and sedation COPD, acute exacerbation, Hyponatremia, hypovolemic Acute encephalopathy, toxic, Schizophrenia Tobacco abuse Alcohol abuse, concern for withdrawl, Abnormal CT chest with faint patchy interstitial infiltrates in the right lower lobe. Likely aspiration pneumonia. FEN - General diet PPX - lovenox CODE - FULL Dispo - extubated 11/13/20, transferred from ICU History of Present Illness History of Present Illness Mr Nelson is a 55 yo M w/ PMHx tobacco abuse, ETOH abuse, schizophrenia on invega sustena monthly (last dose 10/31/20) who presented to ED at [facility] with reports of falling at home. CT head was negative there. He was noted to have a sodium of 115. The patient was treated with IV antibiotics and IV fluids. He was noted to have progressive dyspnea and tachycardia and was intubated and transferred to our facility in the ICU. He had a CTA chest, no evidence of pulmonary embolism, but there were faint infiltrates seen on the right lower lobe. Treated for likely aspiration pnemonia and COPD exacerbation. Negative for COVID 19. 11/12: on Vent. concern for etoh withdrawl, ativan avail. Patient on IV Zosyn 11/13: Extubated. He is now on less oxygen 11/14: still confused and weak, family reports he was a little weak before this illness. Transfer out of ICU to floor. swallowing , passed swallow, now on reg diet, 11/15: Less confused still very weak. Shi catheter still in place. He is asked but hemoglobin to be cared for by nurses. Difficulty keep co nversation becoming tangential or circumferential. Mother noted that he lives with her and his father and they take turns with his care and when he was on Invega Sustenna every 3 weeks he was better controlled. More calm and alert slept well after Zyprexa. Mother bedside. Tolerating p.o. antibiotics well. He still weak and deconditioned from his ICU stay and needs snf on discharge. Vitals/I&O Vitals/I&O: Vital Signs Date Time Temp Pulse Resp B/P (MAP) Pulse Ox O2 Delivery O2 Flow Rate FiO2 11/16/20 08:42 75 145/107 11/16/20 07:13 91 Room Air 11/16/20 07:00 98.9 20 98.9 11/15/20 08:00 2.0 I & O 11/15/20 11/15/20 11/16/20 15:00 23:00 07:00 Output Total 1750 ml 1850 ml 2350 ml Balance -1750 ml -1850 ml -2350 ml Physical Exam General: Alert, Oriented X3, Cooperative, No acute distress, Other ( ) Heart: Regular rate, Normal S1, No murmurs, Other (Tachycardic) Lungs: Clear Abdomen: Soft Extremities: No clubbing, Other (He has mitts on) Skin: No rashes Comment Review of Relevant I have reviewed the following items kye (where applicable) has been applied. Medications: Current Medications Medications (Trade) Dose Ordered Sig/Jean Carlos Route PRN Reason Start Time Stop Time Status Last Admin Dose Admin Lactobacillus Rhamnosus (Culturelle) 1 cap BID PO 11/15/20 21:00 11/15/20 20:46 Potassium Bicarbonate (Potassium Effervescent Tablet) 40 meq 1X ONCE PO 11/15/20 12:30 11/15/20 12:31 DC 11/15/20 12:06 Amoxicillin/ Clavulanate Potassium (Augmentin 875/ 125mg) 1 tab BID PO 11/15/20 12:30 11/18/20 12:29 11/15/20 20:46 Acetaminophen (Tylenol) 650 mg PRN Q6HRS PRN PO MILD PAIN / TEMP > 100.3'F 11/15/20 19:59 11/15/20 20:47 Justifications for Admission Other Justification JUAN PEREIRA MD Nov 16, 2020 10:50
[2020-11-16 11:00] VITALS: BP 115/74
--- NOTE | 2020-11-16 11:00 | NUR ---
Pt. extremely drowsy, too drowsy to safely swallow meds.
[2020-11-16] MEDS ORDERED: BENZTROPINE MESYLATE 1 MG TABLET. PO ONE (11:30)
[2020-11-16] MEDS ORDERED: AMOX1TAB11 PO (11:33)
[2020-11-16] MEDS ORDERED: ALBU2.5V8 IH (11:33)
[2020-11-16] MEDS ORDERED: THIA100T22 PO (11:33)
[2020-11-16] MEDS ORDERED: ACET650S PO (11:33)
[2020-11-16] MEDS ORDERED: PALI117D IM (11:33)
[2020-11-16] MEDS ORDERED: BUDE0.5A NEB (11:33)
--- NOTE | 2020-11-16 11:36 | SNU/HH DC ---
DISCHARGE ORDERS DISCHARGE INFORMATION: DISCHARGE DATE: Nov 16, 2020 FINAL DIAGNOSIS Hypoxic respiratory failure CONDITION ON DISCHARGE: Stable CODE STATUS: Code Status: Full [facility]: SNF STAY <30 DAYS: Yes POST DISCHARGE ORDERS: ACTIVITY ORDERS: Resume previous activity WEIGHT BEARING STATUS: Full weight bearing DIET AFTER DISCHARGE: Regular CHECKS AFTER DISCHARGE: CHECKS AFTER DISCHARGE: Check blood press - daily, Check your Temp as needed, Weigh Yourself Daily FOLLOW-UP: Additional Instructions: Invega sustena: Next dose 11/21/2020 TREATMENT/EQUIPMENT ORDERS: RESPIRATORY EQUIPMENT NEEDED: Nebulizer, MDI Physical Therapy For: Evalulation/Treatment Occupational Therapy For: Evaluation/Treatment Speech Language Pathology For: Evaluation/Treatment DISCHARGE MEDICATIONS: Home Meds Active Scripts Albuterol Sulfate (Proair Hfa) 8.5 Gm Hfa.aer.ad, 2 PUFF IH PRN Q4-6HRS PRN for wheezing for 21 Days, #1 INHALER 0 Refills Prov:JUAN PEREIRA MD 11/16/20 Thiamine Mononitrate (VITAMIN B-1) 100 Mg Tablet, 100 MG PO DAILY for ETOH abuse for 30 Days, #30 TAB Prov:JUAN PEREIRA MD 11/16/20 Budesonide (BUDESONIDE) 0.5 Mg/2 Ml Ampul.neb, 0.5 MG NEB RTBID for COPD for 30 Days, #60 EACH Prov:JUAN PEREIRA MD 11/16/20 Acetaminophen (ACETAMINOPHEN ORAL LIQUID ) 650 Mg/20.3 Ml Solution, 650 MG PO PRN Q6HRS PRN for MILD PAIN / TEMP > 100.3'F for 30 Days, #120 MISC Prov:JUAN PEREIRA MD 11/16/20 Amoxicillin/Potassium Clav (AMOX TR-K CLV 875-125 MG TAB) 1 Each Tablet, 1 TAB PO BID for Aspiration pnemonia for 5 Days, #10 TAB Prov:JUAN PEREIRA MD 11/16/20 Paliperidone Palmitate (INVEGA SUSTENNA) 117 Mg/0.75 Ml Disp.syrin, 0 IM QMONTH for schizophrenia for 30 Days, #1 SYR 0 Refills Next dose 11/21/2020 Prov:JUAN PEREIRA MD 11/16/20 JUAN PEREIRA MD Nov 16, 2020 11:35
--- NOTE | 2020-11-16 11:40 | PDOC3 ---
Discharge Summary Visit Information Date of Admission: Nov 06, 2020 Date of Discharge: Nov 16, 2020 Admitting Diagnosis: Acute hypoxic respiratory failure Final Diagnosis Acute hypoxic respiratory failure Brief Hospital Course Allergies Allergies Coded Allergies Type Severity Reaction Last Updated Verified No Known Drug Allergies 11/06/20 No Vital Signs Vital Signs Date Time Temp Pulse Resp B/P (MAP) Pulse Ox O2 Delivery O2 Flow Rate FiO2 11/16/20 11:00 98.6 121 18 115/74 (88) 92 Room Air 98.6 11/15/20 08:00 2.0 Brief Hospital Course Mr Nelson is a 55 yo M w/ PMHx tobacco abuse, ETOH abuse, schizophrenia on invega sustena monthly (last dose 10/31/20) who presented to ED at [facility] with reports of falling at home. CT head was negative there. He was noted to have a sodium of 115. The patient was treated with IV antibiotics and IV fluids. He was noted to have progressive dyspnea and tachycardia and was intubated and transferred to our facility in the ICU. He had a CTA chest, no evidence of pulmonary embolism, but there were faint infiltrates seen on the right lower lobe. Treated for likely aspiration pnemonia and COPD exacerbation. Negative for COVID 19. 11/12: on Vent. concern for etoh withdrawl, ativan avail. Patient on IV Zosyn 11/13: Extubated. He is now on less oxygen 11/14: still confused and weak, family reports he was a little weak before this illness. Transfer out of ICU to floor. swallowing , passed swallow, now on reg diet, 11/15: Less confused still very weak. Shi catheter still in place. He is asked but hemoglobin to be cared for by nurses. Difficulty keep conversation becoming tangential or circumferential. Mother noted that he lives with her and his father and they take turns with his care and when he was on Invega Sustenna every 3 weeks he was better controlled. More calm and alert slept well after Zyprexa. Mother bedside. Tolerating p.o. antibiotics well. He still weak and deconditioned from his ICU stay and needs longterm on discharge. She is requested he only received Invega sustain his next dose is due on 11/21/2020 she would not like Zyprexa to be continued nor Ativan. Consults: Pulmonology Problem list: Acute hypoxic hypercapnic respiratory failure requiring intubation and sedation COPD, acute exacerbation, Hyponatremia, hypovolemic Acute encephalopathy, toxic, Schizophrenia Tobacco abuse Alcohol abuse, concern for withdrawl, Abnormal CT chest with faint patchy interstitial infiltrates in the right lower lobe. Likely aspiration pneumonia. Greater than 30 minutes spent on d/c to SNF Discharge Information Condition at Discharge: Improved Follow Up: Weeks (1) Disposition/Orders: D/C to Another Facility ([facility] Scheduled Amoxicillin/Potassium Clav (Amox Tr-K Clv 875-125 Mg Tab) 1 Each Tablet, 1 TAB PO BID for Aspiration pnemonia for 5 Days, #10 Prescribed by: JUAN PEREIRA MD on 11/16/20 1133 Budesonide (Budesonide) 0.5 Mg/2 Ml Ampul.neb, 0.5 MG NEB RTBID for COPD for 30 Days, #60 Prescribed by: JUAN PEREIRA MD on 11/16/20 1133 Paliperidone Palmitate (Invega Sustenna) 117 Mg/0.75 Ml Disp.syrin, 0 IM QMONTH for schizophrenia for 30 Days, #1 Ref 0 Next dose 11/21/2020 Prescribed by: JUAN PEREIRA MD on 11/16/20 1133 Thiamine Mononitrate (Vitamin B-1) 100 Mg Tablet, 100 MG PO DAILY for ETOH abuse for 30 Days, #30 Prescribed by: JUAN PEREIRA MD on 11/16/20 1133 Scheduled PRN Acetaminophen (Acetaminophen Oral Liquid ) 650 Mg/20.3 Ml Solution, 650 MG PO PRN Q6HRS PRN for MILD PAIN / TEMP > 100.3'F for 30 Days, #120 Prescribed by: JUAN PEREIRA MD on 11/16/20 1133 Albuterol Sulfate (Proair Hfa) 8.5 Gm Hfa.aer.ad, 2 PUFF IH PRN Q4-6HRS PRN for wheezing for 21 Days, #1 Ref 0 Prescribed by: JUAN PEREIRA MD on 11/16/20 1133 Justicifation of Admission Dx: Justifications for Admission: Justification of Admission Dx: Yes (COPD, hypoxia, intubated) JUAN PEREIRA MD Nov 16, 2020 11:40
[2020-11-16] MEDS: ACETAMINOPHEN 650 MG/20.3 ML SOLUTION. PO PRN (12:29)
--- NOTE | 2020-11-16 13:14 | NUR ---
Attempt made to call report to [facility], voicemail left.
[2020-11-16 15:00] VITALS: BP 121/92
--- NOTE | 2020-11-16 15:39 | NUR ---
Pt discharged to [facility] via per transportation service, mother with pt. Transport packet given to shuttle bus driver.
[2021-01-30] MEDS ORDERED: AMLO-186 PO (18:13)
[2021-01-30] MEDS ORDERED: MENT118G TP (18:14)
[2021-01-30] MEDS ORDERED: MULT-245 PO (18:17)
[2021-01-30] MEDS ORDERED: CYCL10TA2 PO (18:17)
[2021-01-30] MEDS ORDERED: FAMO20TA5 PO (18:17)
[2021-01-30] MEDS ORDERED: IPRA4AER IH (18:17)
[2021-01-30] MEDS ORDERED: LISI-130 PO (18:17)
[2021-02-02] MEDS ORDERED: PANT40TA77 PO (11:12)
[2021-02-02] MEDS ORDERED: ALBU2.5V8 NEB (11:12)
[2021-02-02] MEDS ORDERED: ATOR40TA59 PO (11:12)
[2021-02-02] MEDS ORDERED: METO-239 PO (11:12)
== END 2020-11-16 15:40 | DRG 207 ==
LOC: 1 WEST ICU 12:55 → 4 NORTH 11-14 12:26
PROVIDERS: ADMIT Internal Medicine; ATTEND Internal Medicine
PROC: 5A1955Z Respiratory Ventilation, Greater than 96 Consecutive Hours (ICD-10-PCS; principal; 2020-11-06)
PROC: 0BH17EZ Insertion of Endotracheal Airway into Trachea, Via Natural or Artificial Opening (ICD-10-PCS; 2020-11-06)
DX: J69.0 Pneumonitis due to inhalation of food and vomit (principal); J96.21 Acute and chronic respiratory failure with hypoxia; G92 Toxic encephalopathy; J96.22 Acute and chronic respiratory failure with hypercapnia; E87.1 Hypo-osmolality and hyponatremia; J44.1 Chronic obstructive pulmonary disease with (acute) exacerbation; J44.0 Chronic obstructive pulmonary disease with (acute) lower respiratory infection; E86.1 Hypovolemia; F10.20 Alcohol dependence, uncomplicated; F17.210 Nicotine dependence, cigarettes, uncomplicated; F20.9 Schizophrenia, unspecified; J98.4 Other disorders of lung
CPT/HCPCS: 36415; 36600; 71045; 80048; 80053; 82150; 82805; 83690; 83735; 84132; 84478; 85007; 85025; 85027; 93306; 94002; 94003; 94640; 94760; J0360; J1650; J2060; J2250; J2543; J2704; J3010; J3411; J3475; J3490; J7030; J7060; 92526-GN; 92610-GN; 97110-GP; 97116-GP; 97530-GP; 97535-GO; G0378; J7626

== ENCOUNTER 2021-02-06 17:17 | Emergency (ER) | payer MEDICARE ==
[~2021-02-06] VITALS: Ht 182.9 cm; Wt 66.0 kg
[~2021-02-06 17:17] MED LIST: ACET650S PO; ALBU2.5V8 IH; ALBU2.5V8 NEB; AMLO-186 PO; AMOX1TAB11 PO; ATOR40TA59 PO; BUDE0.5A NEB; CYCL10TA2 PO; FAMO20TA5 PO; IPRA4AER IH; LISI-130 PO; MENT118G TP; METO-239 PO; MULT-245 PO; PALI117D IM; PANT40TA77 PO; THIA100T22 PO
[2021-02-06 17:54] LABS: BASO % 1 % (0-3); EOS # 0.5 x10^3/uL (0.0-0.7); EOS % 6 % (0-3); HEMOGLOBIN 11.9 g/dL (13.0-17.5); LYMPH # 1.4 x10^3/uL (1.0-4.8); LYMPH % 17 % (24-48); MEAN CORPUSCULAR HEMOGLOBIN 30 pg (25-35); MEAN CORPUSCULAR HGB CONC 34 g/dL (31-37); MEAN CORPUSCULAR VOLUME 90 fL (79-100); MONO % 12 % (0-9); NEUT # 5.8 x10^3/uL (1.8-7.7); NEUT % 66 % (31-73); PLATELET COUNT 336 x10^3/uL (140-400); RED BLOOD COUNT 3.91 x10^6/uL (4.30-5.70); RED CELL DISTRIBUTION WIDTH 13.5 % (11.5-14.5); WHITE BLOOD COUNT 8.7 x10^3/uL (4.0-11.0)
[2021-02-06 18:06] LABS: CALCIUM 8.1 mg/dL (8.5-10.1); CREATININE 0.4 mg/dL (0.7-1.3); GFR 222.5
[2021-02-06 18:11] LABS: ALBUMIN/GLOBULIN RATIO 0.9 (1.0-1.7); MAGNESIUM 1.5 mg/dL (1.8-2.4); TOTAL BILIRUBIN 0.2 mg/dL (0.2-1.0); TOTAL PROTEIN 6.3 g/dL (6.4-8.2)
[2021-02-06] MEDS ORDERED: IV NORMAL SALINE 1000ML BAG 1,000 ML IV ONE (18:15)
--- NOTE | 2021-02-06 19:54 | ED.ADGEN ---
Past Medical History Past Medical History: COPD, Hypertension, Pneumonia, Schizophrenia Past Surgical History: No Surgical History Smoking Status: Current Every Day Smoker Alcohol Use: Occasionally General Adult EDM: Chief Complaint: ABNORMAL LABS HPI: HPI: Patient is a 55 year old [f__sex] who presents with [] Review of Systems: Review of Systems: Constitutional: Denies fever or chills. [] Eyes: Denies change in visual acuity. [] HENT: Denies nasal congestion or sore throat. [] Respiratory: Denies cough or shortness of breath. [] Cardiovascular: Denies chest pain or edema. [] GI: Denies abdominal pain, nausea, vomiting, bloody stools or diarrhea. [] : Denies dysuria. [] Musculoskeletal: Denies back pain or joint pain. [] Integument: Denies rash. [] Neurologic: Denies headache, focal weakness or sensory changes. [] Endocrine: Denies polyuria or polydipsia. [] Lymphatic: Denies swollen glands. [] Psychiatric: Denies depression or anxiety. [] Current Medications: Current Medications Medications (Trade) Dose Ordered Sig/Jean Carlos Start Time Stop Time Status Last Admin Dose Admin Sodium Chloride 1,000 ml @ 1,000 mls/hr 1X ONCE 02/06/21 18:15 02/06/21 19:14 DC 02/06/21 18:50 1,000 MLS/HR Allergies: Allergies: Allergies Coded Allergies Type Severity Reaction Last Updated Verified No Known Drug Allergies 11/06/20 No Physical Exam: PE: Constitutional: Well developed, well nourished, no acute distress, non-toxic appearance. [] HENT: Normocephalic, atraumatic, bilateral external ears normal, oropharynx moist, no oral exudates, nose normal. [] Eyes: PERRLA, EOMI, conjunctiva normal, no discharge. [] Neck: Normal range of motion, no tenderness, supple, no stridor. [] Cardiovascular:Heart rate regular rhythm, no murmur [] Lungs & Thorax: Bilateral breath sounds clear to auscultation [] Abdomen: Bowel sounds normal, soft, no tenderness, no masses, no pulsatile m asses. [] Skin: Warm, dry, no erythema, no rash. [] Back: No tenderness, no CVA tenderness. [] Extremities: No tenderness, no cyanosis, no clubbing, ROM intact, no edema. [] Neurologic: Alert and oriented X 3, normal motor function, normal sensory function, no focal deficits noted. [] Psychologic: Affect normal, judgement normal, mood normal. [] Current Patient Data: Labs: Laboratory Tests Test 02/06/21 17:36 White Blood Count 8.7 x10^3/uL (4.0-11.0) Red Blood Count 3.91 x10^6/uL (4.30-5.70) L Hemoglobin 11.9 g/dL (13.0-17.5) L Hematocrit 35.0 % (39.0-53.0) L Mean Corpuscular Volume 90 fL (79-100) Mean Corpuscular Hemoglobin 30 pg (25-35) Mean Corpuscular Hemoglobin Concent 34 g/dL (31-37) Red Cell Distribution Width 13.5 % (11.5-14.5) Platelet Count 336 x10^3/uL (140-400) Neutrophils (%) (Auto) 66 % (31-73) Lymphocytes (%) (Auto) 17 % (24-48) L Monocytes (%) (Auto) 12 % (0-9) H Eosinophils (%) (Auto) 6 % (0-3) H Basophils (%) (Auto) 1 % (0-3) Neutrophils # (Auto) 5.8 x10^3/uL (1.8-7.7) Lymphocytes # (Auto) 1.4 x10^3/uL (1.0-4.8) Monocytes # (Auto) 1.0 x10^3/uL (0.0-1.1) Eosinophils # (Auto) 0.5 x10^3/uL (0.0-0.7) Basophils # (Auto) 0.0 x10^3/uL (0.0-0.2) Sodium Level 130 mmol/L (136-145) L Potassium Level 4.0 mmol/L (3.5-5.1) Chloride Level 90 mmol/L (98-107) L Carbon Dioxide Level 32 mmol/L (21-32) Anion Gap 8 (6-14) Blood Urea Nitrogen 10 mg/dL (8-26) Creatinine 0.4 mg/dL (0.7-1.3) L Estimated GFR (Cockcroft-Gault) 222.5 BUN/Creatinine Ratio 25 (6-20) H Glucose Level 118 mg/dL (70-99) H Calcium Level 8.1 mg/dL (8.5-10.1) L Magnesium Level 1.5 mg/dL (1.8-2.4) L Total Bilirubin 0.2 mg/dL (0.2-1.0) Aspartate Amino Transferase (AST) 16 U/L (15-37) Alanine Aminotransferase (ALT) 25 U/L (16-63) Alkaline Phosphatase 107 U/L (46-116) Total Protein 6.3 g/dL (6.4-8.2) L Albumin 3.0 g/dL (3.4-5.0) L Albumin/Globulin Ratio 0.9 (1.0-1.7) L Laboratory Tests 02/06/21 17:36 Laboratory Tests 02/06/21 17:36 Vital Signs: Vital Signs Date Time Temp Pulse Resp B/P (MAP) Pulse Ox O2 Delivery O2 Flow Rate FiO2 02/06/21 17:30 98.2 78 20 142/96 (111) 94 Room Air 98.2 EKG: EKG: [] Heart Score: C/O Chest Pain: No Risk Factors: Risk Factors: DM, Current or recent (<one month) smoker, HTN, HLP, family history of CAD, obesity. Risk Scores: Score 0 - 3: 2.5% MACE over next 6 weeks - Discharge Home Score 4 - 6: 20.3% MACE over next 6 weeks - Admit for Clinical Observation Score 7 - 10: 72.7% MACE over next 6 weeks - Early Invasive Strategies Radiology/Procedures: Radiology/Procedures: [] Course & Med Decision Making: Course & Med Decision Making Pertinent Labs and Imaging studies reviewed. (See chart for details) [] Dragon Disclaimer: Dragon Disclaimer: This electronic medical record was generated, in whole or in part, using a voice recognition dictation system. Departure Departure Impression: Primary Impression: Hyponatremia Disposition: HOME / SELF CARE / HOMELESS Condition: STABLE Referrals: AGNIESZKA PENA MD (PCP) Patient Instructions: Hyponatremia, [id number] Additional Instructions: SODIUM IN THE ER WAS 130, this is consistent with levels while in the hospital for recent admission. Follow up with primary care doctor in 1-2 days. Return to the ER if symptoms worsen. MIKE CUMMINGS TRAILER RENTAL CLERK Feb 06, 2021 19:54
[2021-02-06 20:31] VITALS: BP 149/88
== END 2021-02-06 21:00 | disposition home or self-care (01) ==
LOC: ER 17:17
DX: E87.1 Hypo-osmolality and hyponatremia (principal); J44.9 Chronic obstructive pulmonary disease, unspecified; I10 Essential (primary) hypertension; F20.9 Schizophrenia, unspecified; F17.200 Nicotine dependence, unspecified, uncomplicated
CPT/HCPCS: 36415; 80053; 83735; 85025; 96360; 99283; J7030

== ENCOUNTER 2021-12-29 18:18 | Inpatient (IN) | payer MEDICARE, OTHER ==
[~2021-12-29] VITALS: Ht 185.4 cm; Wt 85.3 kg
[~2021-12-29 18:18] MED LIST changes: +CYCL10TA19 PO; -CYCL10TA2 PO; +PROPOFOL 10 MG/ML (100ML) VIAL. IV ONE
--- NOTE | 2021-12-29 18:46 | PHYS DOC ---
Past Medical History Past Medical History: COPD, Hypertension, Pneumonia, Schizophrenia Past Surgical History: No Surgical History Smoking Status: Current Every Day Smoker Alcohol Use: Occasionally General Adult EDM: Chief Complaint: SHORTNESS OF BREATH HPI: HPI: Patient is a 56 year old male with past medical history of copd normally on 4L NC presents for evaluation of increased SOB. Patient states SOB progressively worse over the last week. Patient has cough without sputum production. Patients O2 sat on arrival was Review of Systems: Review of Systems: Constitutional: Denies fever or chills. [] Eyes: Denies change in visual acuity. [] HENT: Denies nasal congestion or sore throat. [] Respiratory: Positive cough Positive shortness of breath. [] Cardiovascular: Denies chest pain or edema. [] GI: Denies abdominal pain, nausea, vomiting, bloody stools or diarrhea. [] : Denies dysuria. [] Musculoskeletal: Denies back pain or joint pain. [] Integument: Denies rash. [] Neurologic: Denies headache, focal weakness or sensory changes. [] Endocrine: Denies polyuria or polydipsia. [] Lymphatic: Denies swollen glands. [] Psychiatric: Denies depression or anxiety. [] Heart Score: C/O Chest Pain: N/A Risk Factors: Risk Factors: DM, Current or recent (<one month) smoker, HTN, HLP, family history of CAD, obesity. Risk Scores: Score 0 - 3: 2.5% MACE over next 6 weeks - Discharge Home Score 4 - 6: 20.3% MACE over next 6 weeks - Admit for Clinical Observation Score 7 - 10: 72.7% MACE over next 6 weeks - Early Invasive Strategies Allergies: Allergies: Allergies Coded Allergies Type Severity Reaction Last Updated Verified No Known Drug Allergies 11/06/20 No Physical Exam: PE: Constitutional: Well developed, well nourished, no acute distress, non-toxic appearance. [] HENT: Normocephalic, atraumatic, bilateral external ears normal, oropharynx moist, no oral exudates, nose normal. [] Eyes: PERRLA, EOMI, conjunctiva normal, no discharge. [] Neck: Normal range of motion, no tenderness, supple, no stridor. [] Cardiovascular:Heart rate regular rhythm, no murmur [] Lungs & Thorax: Decreased breath sounds bilateral Abdomen: Bowel sounds normal, soft, no tenderness, no masses, no pulsatile masses. [] Skin: Warm, dry, no erythema, no rash. [] Back: No tenderness, no CVA tenderness. [] Extremities: No tenderness, no cyanosis, no clubbing, ROM intact, no edema. [] Neurologic: Alert and oriented X 3, normal motor function, normal sensory function, no focal deficits noted. [] Psychologic: Affect normal, judgement normal, mood normal. [] EKG: EKG: [] Performed at 1851 Rate 69 Normal sinus rhythm No ST elevation No ST depression No acute [place] Radiology/Procedures: Radiology/Procedures: [] Impression: IMPRESSION: Left basilar airspace disease may relate to atelectasis or developing infectious process Course & Med Decision Making: Course & Med Decision Making Pertinent Labs and Imaging studies reviewed. (See chart for details) [] Patient was evaluated for chief complaint. Work-up consisted of laboratory a nalysis and radiologic imaging. Results reviewed. Treatment included Solu- Medrol DuoNeb. Patient also received IV fluids. Patient admitted to the hospitalist for further evaluation and treatment. Clifon Disclaimer: Dragon Disclaimer: This electronic medical record was generated, in whole or in part, using a voice recognition dictation system. Departure Departure Impression: Primary Impression: Hyponatremia Additional Impressions: COPD exacerbation Pneumonia Disposition: ADMITTED INPATIENT Condition: STABLE Referrals: AGNIESZKA PENA MD (PCP) DINESH JOHNSON DO Dec 29, 2021 18:46
[2021-12-29 18:51] LABS: BASO % 0 % (0-3); EOS # 0.1 x10^3/uL (0.0-0.7); EOS % 1 % (0-3); HEMATOCRIT 29.6 % (39.0-53.0); HEMOGLOBIN 10.3 g/dL (13.0-17.5); LYMPH # 0.7 x10^3/uL (1.0-4.8); LYMPH % 6 % (24-48); MEAN CORPUSCULAR HEMOGLOBIN 29 pg (25-35); MEAN CORPUSCULAR HGB CONC 35 g/dL (31-37); MEAN CORPUSCULAR VOLUME 84 fL (79-100); MONO # 1.4 x10^3/uL (0.0-1.1); MONO % 13 % (0-9); NEUT # 8.8 x10^3/uL (1.8-7.7); NEUT % 80 % (31-73); PLATELET COUNT 272 x10^3/uL (140-400); RED BLOOD COUNT 3.55 x10^6/uL (4.30-5.70)
[2021-12-29 19:07] LABS: ALBUMIN 3.1 g/dL (3.4-5.0); ALBUMIN/GLOBULIN RATIO 1.2 (1.0-1.7); ALK PHOS 115 U/L (46-116); ALT (SGPT) 38 U/L (16-63); ANION GAP 1 (6-14); AST (SGOT) 33 U/L (15-37); BLOOD UREA NITROGEN 5 mg/dL (8-26); BUN/CREATININE RATIO 17 (6-20); CALCIUM 7.4 mg/dL (8.5-10.1); CARBON DIOXIDE 35 mmol/L (21-32); CHLORIDE 72 mmol/L (98-107); CREATININE 0.3 mg/dL (0.7-1.3); GFR > 300.0; GLUCOSE 114 mg/dL (70-99); POTASSIUM 4.4 mmol/L (3.5-5.1); TOTAL BILIRUBIN 0.4 mg/dL (0.2-1.0); TOTAL PROTEIN 5.7 g/dL (6.4-8.2)
[2021-12-29 19:10] LABS: SODIUM 108 mmol/L (136-145)
[2021-12-29 19:16] LABS: INFLUENZA A PATIENT NEGATIVE (NEGATIVE); INFLUENZA B PATIENT NEGATIVE (NEGATIVE)
[2021-12-29] MEDS ORDERED: IPRATRPIUM/ALBUTEROL 0.5/2.5MG 3 ML NEBU. NEB ONE (19:30)
[2021-12-29] MEDS ORDERED: IV NORMAL SALINE 1000ML BAG 1,000 ML IV ONE (19:30)
[2021-12-29] MEDS ORDERED: methylPREDNISolone SOD SUCC PF 125 MG/2 ML VIAL. IV ONE (19:30)
[2021-12-29] MEDS ORDERED: ONDANSETRON PF 4 MG/2 ML VIAL. IVP PRN ×2 (19:45→20:15)
--- NOTE | 2021-12-29 19:47 | RAD ---
Exam: Chest one view INDICATION: Shortness of breath TECHNIQUE: Frontal view of the chest Comparisons: 01/31/2021 FINDINGS: The cardiomediastinal silhouette and pulmonary vessels are within normal limits. Strandy left basilar airspace disease. No pleural effusion IMPRESSION: Left basilar airspace disease may relate to atelectasis or developing infectious process. Electronically signed by: Sylvie Gleason MD (12/29/2021 7:45 PM) MAGDY
[2021-12-29] MEDS ORDERED: diphenhydrAMINE 50 MG/ML VIAL IVP PRN (20:15)
[2021-12-29] MEDS ORDERED: diphenhydrAMINE HCL 25 MG CAPSULE PO PRN ×2 (20:15)
[2021-12-29] MEDS ORDERED: PROCHLORPERAZINE 10 MG/2 ML VIAL. IV PRN (20:15)
[2021-12-29] MEDS ORDERED: DOCUSATE SODIUM 100 MG CAPSULE. PO PRN (20:15)
[2021-12-29] MEDS ORDERED: DEXTROSE 50% 25 GM / 50ML DISP.SYRIN. IV PRN (20:15)
[2021-12-29] MEDS ORDERED: LORazepam 0.5 MG TABLET PO PRN (20:15)
[2021-12-29] MEDS ORDERED: ZOLPIDEM 5 MG TABLET. PO PRN (20:15)
[2021-12-29] MEDS ORDERED: ACETAMINOPHEN 325 MG TABLET. PO PRN (20:15)
[2021-12-29] MEDS ORDERED: SENNOSIDES 8.6 MG TABLET PO PRN (20:15)
[2021-12-29 20:36] LABS: BARBITURATES NEG (NEG); BENZODIAZEPINES NEG (NEG); CANNABINOIDS NEG (NEG); COCAINE NEG (NEG); METHADONE NEG (NEG); OPIATES NEG (NEG); PHENCYCLIDINE NEG (NEG)
[2021-12-29 20:40] LABS: BILIRUBIN,URINE NEGATIVE (NEG); CLARITY,URINE CLEAR; COLOR,URINE YELLOW; NITRITE,URINE NEGATIVE (NEG); PROTEIN,URINE NEGATIVE (NEG-TRACE)
[2021-12-29 20:41] LABS: AMORPHOUS SEDIMENT,UR PRESENT /HPF; BACTERIA,URINE 0 /HPF (0-FEW); RBC,URINE 0 /HPF (0-2); WBC,URINE 0 /HPF (0-4)
[2021-12-29 20:50] LABS: AMPHETAMINE/METHAMPHETAMINE NEG (NEG)
[2021-12-29] MEDS: ENOXAPARIN 40 MG/0.4 ML SYRINGE. SQ SCH (20:55)
[2021-12-29] MEDS: AZITHROMYCIN 500 MG in IV NORMAL SALINE 250ML 250 ML IV SCH (20:58)
[2021-12-29] MEDS: CEFEPIME HCL IV Push 1 GM VIAL. IVP SCH (21:00)
[2021-12-29] MEDS: IV NORMAL SALINE 1000ML BAG 1,000 ML IV SCH (21:03)
[2021-12-29 23:57] VITALS: BP 124/98
[2021-12-30] VITALS (12 sets, daily range): BP systolic 107–144; BP diastolic 61–81
--- NOTE | 2021-12-30 00:05 | NUR ---
This conventional mortgage underwriter and Kylie barnes, picked patient up fromED room 19, oxygen at 4 L N/C, belongings x 2 green bags transferred with the patient, In attempting to obtain a history , day of , he does recall correctly, but is voiced quickly and jumbled, some difficulty in understanding. He was incontinent of urine, when turned to change, patient urinated on the side of the bed as we were changing, did not control (?). Call light given and use demonstrated, plan of care discussed, will discuss as needed. he denies any cough, vss, bed alarm engaged, to monitor this patient.
--- NOTE | 2021-12-30 01:00 | EKG ---
[facility] [address] [place] [address] Test Date: 2021-12-29 Test Time: 18:51:58 Pat Name: BEBETO PORTER Department: Room: [facility] Gender: M Property And Equipment Clerk: : 1965 Requested By: DINESH JOHNSON Order Number: [id number] Reading MD: Sohail Roberts MD Measurements Intervals [place] Rate: 69 P: 38 [place]: 174 QRS: 27 QRSD: 98 T: 31 QT: 366 QTc: 394 Interpretive Statements SINUS RHYTHM Electronically Signed On 12-31-2021 10:13:47 FISH NET MAKER by Sohail Roberts MD
--- NOTE | 2021-12-30 02:15 | NUR ---
Patient's oxygen dropping to 80's, percent, he is a mouth breather, oxygen tubing changed out to a simple mask, levels increased (4L/simple mask), oxygen level increases to mid 90"s, the flow meter decreased to 2.5L/simple mask--92-96%, monitoring.
[2021-12-30 02:44] LABS: CALCIUM 7.4 mg/dL (8.5-10.1); CREATININE 0.4 mg/dL (0.7-1.3); GFR 221.7; POTASSIUM 3.9 mmol/L (3.5-5.1)
[2021-12-30 02:51] LABS: BASO % 0 % (0-3); EOS % 0 % (0-3); HEMATOCRIT 32.6 % (39.0-53.0); HEMOGLOBIN 10.9 g/dL (13.0-17.5); LYMPH # 0.2 x10^3/uL (1.0-4.8); LYMPH % 2 % (24-48); MEAN CORPUSCULAR HEMOGLOBIN 29 pg (25-35); MEAN CORPUSCULAR HGB CONC 34 g/dL (31-37); MEAN CORPUSCULAR VOLUME 87 fL (79-100); MONO # 0.3 x10^3/uL (0.0-1.1); MONO % 2 % (0-9); NEUT # 11.1 x10^3/uL (1.8-7.7); NEUT % 96 % (31-73); PLATELET COUNT 306 x10^3/uL (140-400); RED BLOOD COUNT 3.77 x10^6/uL (4.30-5.70); RED CELL DISTRIBUTION WIDTH 12.7 % (11.5-14.5); WHITE BLOOD COUNT 11.5 x10^3/uL (4.0-11.0)
[2021-12-30] MEDS: methylPREDNISolone SOD SUCC PF 40 MG/ML VIAL. IV SCH ×4 (03:00→18:38)
[2021-12-30 03:18] LABS: MAGNESIUM 1.3 mg/dL (1.8-2.4); PHOSPHORUS 3.3 mg/dL (2.6-4.7)
[2021-12-30 03:48] LABS: % BANDS 1 % (0-9); % LYMPHS 2 % (24-48); % MONOS 5 % (0-10); % SEGS 92 % (35-66); PLT ESTIMATE ADEQUATE (ADEQUATE); TOXIC GRANULATION SLIGHT; TOXIC VACUOLATION SLIGHT
[2021-12-30] MEDS ORDERED: AMLO-187 PO (04:01)
--- NOTE | 2021-12-30 04:01 | NUR ---
This engineering writer reviewing patient's med list from [facility], unsure about patient's Paliperidone Palmitate ER Suspension Prefilled Syringe 117mg/0.75 ml order-----printed "inject 1 vial intramuscularly every day shift starting on the and ending on the 2nd every month' for schizophrenia, unsure if its monthly(?), for one month ...Will need clarification.
[2021-12-30] MEDS: IV NORMAL SALINE 1000ML BAG 1,000 ML IV SCH ×2 (08:13→19:46)
--- NOTE | 2021-12-30 08:36 | PDOC1 ---
History and Physical Date of Service: DOS: DATE: 12/30/21 TIME: 08:31 Chief Complaint: Chief Complain: Shortness of breath History of Present Illness: HPI: 56-year-old male with past medical history of COPD, hypertension, schizophrenia who comes in for increased shortness of breath. Patient is on 4 L nasal cannula at baseline. Patient has been having worsening shortness of breath for the past week and also having cough without productive sputum production. Chest x-ray done in the ED shows possible pneumonia. Also patient did have some CO2 retention this morning on my encounter of 92. BiPAP placed. Also an incidental finding of hyponatremia. IV fluid bolus given in normal saline maintenance fluids continued throughout the night. Denies fevers, chest pain, abdominal p ain, diarrhea, sick contacts or recent travel. Past Medical/Surgical History: PMH/PSH: Past Medical History: COPD, Hypertension, Pneumonia, Schizophrenia Past Surgical History: No Surgical History Allergies: Allergies: Coded Allergies: No Known Drug Allergies (Unverified , 12/29/21) Family History: Family History: Reviewed with no relative findings in the chart Social History: Social History: Smoking Status: Current Every Day Smoker Alcohol Use: Occasionally Current Medications: Current Medications Current Medications Methylprednisolone Sodium Succinate (SOLU-Medrol 125MG VIAL) 125 mg 1X ONCE IV Last administered on 12/29/21at 19:44; Start 12/29/21 at 19:30; Stop 12/29/21 at 19:31; Status DC Albuterol/ Ipratropium (Duoneb) 3 ml 1X ONCE NEB ; Start 12/29/21 at 19:30; Stop 12/29/21 at 19:31; Status DC Sodium Chloride 1,000 ml @ 1,000 mls/hr 1X ONCE IV Last administered on 12/29/21at 19:44; Start 12/29/21 at 19:30; Stop 12/29/21 at 20:29; Status DC Ondansetron HCl (Zofran) 4 mg PRN Q8HRS PRN IVP NAUSEA/VOMITING; Start 12/29/21 at 19:45; Stop 12/30/21 at 19:44 Azithromycin 500 mg/Sodium Chloride 250 ml @ 250 mls/hr Q24H IV Last administered on 12/29/21at 20:58; Start 12/29/21 at 21:00 Cefepime HCl (Maxipime) 1 gm Q24H IVP Last administered on 12/29/21at 21:00; Start 12/29/21 at 21:00 Sennosides (Senna) 17.2 mg PRN BID PRN PO CONSTIPATION; Start 12/29/21 at 20:15 Docusate Sodium (Colace) 100 mg PRN DAILY PRN PO HARD STOOLS; Start 12/29/21 at 20:15 Ondansetron HCl (Zofran) 4 mg PRN Q6HRS PRN IVP NAUSEA/VOMITING, 1st CHOICE; Start 12/29/21 at 20:15 Methylprednisolone Sodium Succinate (SOLU-Medrol 40MG VIAL) 40 mg Q6HRS IV Last administered on 12/30/21at 06:36; Start 12/30/21 at 00:00 Dextrose (Dextrose 50%-Water Syringe) 12.5 gm PRN Q15MIN PRN IV SEE COMMENTS; Start 12/29/21 at 20:15 Sodium Chloride 1,000 ml @ 100 mls/hr Q10H IV Last administered on 12/30/21at 08:13; Start 12/29/21 at 20:15 Acetaminophen (Tylenol) 650 mg PRN Q4HRS PRN PO TEMP OVER 100.4F OR MILD PAIN; Start 12/29/21 at 20:15 Lorazepam (Ativan) 0.5 mg PRN Q6HRS PRN PO ANXIETY / AGITATION; Start 12/29/21 at 20:15 Lorazepam (Ativan Inj) 0.25 mg PRN Q4HRS PRN IV ANXIETY / AGITATION; Start 12/29/21 at 20:15 Enoxaparin Sodium (Lovenox 40mg Syringe) 40 mg Q24H SQ Last administered on 12/29/21at 20:55; Start 12/29/21 at 21:00 Prochlorperazine Edisylate (Compazine) 10 mg PRN Q6HRS PRN IV NAUSEA/VOMITING, 2nd CHOICE; Start 12/29/21 at 20:15 Diphenhydramine HCl (Benadryl) 25 mg PRN Q6HRS PRN IVP ITCHING; Start 12/29/21 at 20:15 Diphenhydramine HCl (Benadryl) 25 mg PRN Q6HRS PRN PO ITCHING; Start 12/29/21 at 20:15 Diphenhydramine HCl (Benadryl) 25 mg PRN QHS PRN PO INSOMNIA, 1st CHOICE; Start 12/29/21 at 20:15 Zolpidem Tartrate (Ambien) 2.5 mg PRN QHS PRN PO INSOMNIA, 2nd CHOICE; Start 12/29/21 at 20:15 Active Scripts Active Metoprolol Succinate ( Xl ) (Metoprolol Succinate) 25 Mg Tab.er.24h 12.5 Mg PO DAILY 30 Days Atorvastatin Calcium 40 Mg Tablet 80 Mg PO QHS 30 Days Proair Hfa (Albuterol Sulfate) 8.5 Gm Hfa.aer.ad 2.5 Mg NEB PRN Q4HRS PRN 30 Days Vitamin B-1 (Thiamine Mononitrate) 100 Mg Tablet 100 Mg PO DAILY 30 Days Invega Sustenna (Paliperidone Palmitate) 117 Mg/0.75 Ml Disp.syrin 0 IM QMONTH 30 Days Next dose 11/21/2020 Reported Amlodipine Besylate 10 Mg Tablet 10 Mg PO DAILY Multi Vitamin Daily (Multivitamin) 1 Each Tablet 1 Tab PO DAILY 30 Days Lisinopril 40 Mg Tablet 40 Mg PO DAILY Famotidine 20 Mg Tablet 20 Mg PO BID Combivent Respimat Inhal (Ipratropium/Albuterol Sulfate) 4 Gm Aer.w.adap 1 Inh IH QID Biofreeze (Menthol) 118 Ml Gel..ml. 1 Keri TP QID 7 Days ROS: Review of Systems Review of System REVIEW OF SYSTEMS: GENERAL: Denies weakness SKIN: No bruising, hair changes or rashes. EYES: No blurred, double or loss of vision. NOSE AND THROAT: No history of nosebleeds, hoarseness or sore throat. HEART: No history of palpitations, chest pain or shortness of breath on exertion. LUNGS: Positive for shortness of breath GASTROINTESTINAL: Denies changes in appetite, nausea, vomiting, diarrhea or constipation. GENITOURINARY: No history of frequency, urgency, hesitancy or nocturia. NEUROLOGIC: Denies history of numbness, tingling, or tremor. PSYCHIATRIC: No history of panic, anxiety or depression. ENDOCRINE: No history of heat or cold intolerance, polyuria or polydipsia. EXTREMITIES: Denies joint pain, pain on walking or stiffness. Physical Exam: Vital Signs: Vital Signs Date Time Temp Pulse Resp B/P (MAP) Pulse Ox O2 Delivery O2 Flow Rate FiO2 12/30/21 03:18 98.0 75 20 144/80 (101) 96 Simple Mask 98.0 12/30/21 00:18 4.0 Physcial Exam: General: Mild distress currently tolerating BiPAP HEENT: Pupils equally round and reactive to light, EOMI, no discharge, normal conjunctiva Neck: Supple, no nuchal rigidity, no JVD, trachea midline, no tenderness Cardiac: RRR, no murmurs, no gallops, no rubs Chest/Lungs: CTAB, no wheeze, no rhonchi, no crackles Abdomen: soft, non-distended, no guarding, no peritoneal signs, non-tender Back: No tenderness Extremities: no edema, pulses intact, non-tender,capillary refill <3 sec bilateral upper and lower extremities, Neuro: Alert and oriented x 4, no focal deficits, normal speech Labs: Labs: Laboratory Tests Test 12/29/21 18:40 12/29/21 18:54 12/29/21 20:00 12/30/21 02:00 White Blood Count 11.0 x10^3/uL (4.0-11.0) 11.5 x10^3/uL (4.0-11.0) Red Blood Count 3.55 x10^6/uL (4.30-5.70) 3.77 x10^6/uL (4.30-5.70) Hemoglobin 10.3 g/dL (13.0-17.5) 10.9 g/dL (13.0-17.5) Hematocrit 29.6 % (39.0-53.0) 32.6 % (39.0-53.0) Mean Corpuscular Volume 84 fL (79-100) 87 fL (79-100) Mean Corpuscular Hemoglobin 29 pg (25-35) 29 pg (25-35) Mean Corpuscular Hemoglobin Concent 35 g/dL (31-37) 34 g/dL (31-37) Red Cell Distribution Width 13.0 % (11.5-14.5) 12.7 % (11.5-14.5) Platelet Count 272 x10^3/uL (140-400) 306 x10^3/uL (140-400) Neutrophils (%) (Auto) 80 % (31-73) 96 % (31-73) Lymphocytes (%) (Auto) 6 % (24-48) 2 % (24-48) Monocytes (%) (Auto) 13 % (0-9) 2 % (0-9) Eosinophils (%) (Auto) 1 % (0-3) 0 % (0-3) Basophils (%) (Auto) 0 % (0-3) 0 % (0-3) Neutrophils # (Auto) 8.8 x10^3/uL (1.8-7.7) 11.1 x10^3/uL (1.8-7.7) Lymphocytes # (Auto) 0.7 x10^3/uL (1.0-4.8) 0.2 x10^3/uL (1.0-4.8) Monocytes # (Auto) 1.4 x10^3/uL (0.0-1.1) 0.3 x10^3/uL (0.0-1.1) Eosinophils # (Auto) 0.1 x10^3/uL (0.0-0.7) 0.0 x10^3/uL (0.0-0.7) Basophils # (Auto) 0.0 x10^3/uL (0.0-0.2) 0.0 x10^3/uL (0.0-0.2) Sodium Level 108 mmol/L (136-145) 111 mmol/L (136-145) Potassium Level 4.4 mmol/L (3.5-5.1) 3.9 mmol/L (3.5-5.1) Chloride Level 72 mmol/L (98-107) 75 mmol/L (98-107) Carbon Dioxide Level 35 mmol/L (21-32) 34 mmol/L (21-32) Anion Gap 1 (6-14) 2 (6-14) Blood Urea Nitrogen 5 mg/dL (8-26) 3 mg/dL (8-26) Creatinine 0.3 mg/dL (0.7-1.3) 0.4 mg/dL (0.7-1.3) Estimated GFR (Cockcroft-Gault) > 300.0 221.7 BUN/Creatinine Ratio 17 (6-20) Glucose Level 114 mg/dL (70-99) 150 mg/dL (70-99) Calcium Level 7.4 mg/dL (8.5-10.1) 7.4 mg/dL (8.5-10.1) Total Bilirubin 0.4 mg/dL (0.2-1.0) Aspartate Amino Transf (AST/SGOT) 33 U/L (15-37) Alanine Aminotransferase (ALT/SGPT) 38 U/L (16-63) Alkaline Phosphatase 115 U/L (46-116) Troponin I High Sensitivity 8 ng/L (4-75) SB-Hix-M-Type Natriuretic Peptide 40 pg/mL (0-124) Total Protein 5.7 g/dL (6.4-8.2) Albumin 3.1 g/dL (3.4-5.0) Albumin/Globulin Ratio 1.2 (1.0-1.7) Influenza Type A Antigen Negative (NEGATIVE) Influenza Type B Antigen Negative (NEGATIVE) SARS-CoV-2 Antigen (Rapid) Negative (NEGATIVE) Urine Collection Type Unknown Urine Color Yellow Urine Clarity Clear Urine pH 8.0 (<5.0-8.0) Urine Specific [place] 1.020 (1.000-1.030) Urine Protein Negative mg/dL (NEG-TRACE) Urine Glucose (UA) Negative mg/dL (NEG) Urine Ketones (Stick) Negative mg/dL (NEG) Urine Blood Negative (NEG) Urine Nitrite Negative (NEG) Urine Bilirubin Negative (NEG) Urine Urobilinogen Dipstick 1.0 mg/dL (0.2 mg/dL) Urine Leukocyte Esterase Negative (NEG) Urine RBC 0 /HPF (0-2) Urine WBC 0 /HPF (0-4) Urine Squamous Epithelial Cells Occ /LPF Urine Amorphous Sediment Present /HPF Urine Bacteria 0 /HPF (0-FEW) Urine Mucus Slight /LPF Urine Opiates Screen Neg (NEG) Urine Methadone Screen Neg (NEG) Urine Barbiturates Neg (NEG) Urine Phencyclidine Screen Neg (NEG) Urine Amphetamine/Methamphetamine Neg (NEG) Urine Benzodiazepines Screen Neg (NEG) Urine Cocaine Screen Neg (NEG) Urine Cannabinoids Screen Neg (NEG) Urine Ethyl Alcohol Neg (NEG) Segmented Neutrophils % 92 % (35-66) Band Neutrophils % 1 % (0-9) Lymphocytes % 2 % (24-48) Monocytes % 5 % (0-10) Toxic Granulation Slight Toxic Vacuolation Slight Platelet Estimate Adequate (ADEQUATE) Phosphorus Level 3.3 mg/dL (2.6-4.7) Magnesium Level 1.3 mg/dL (1.8-2.4) Laboratory Tests Test 12/29/21 18:40 12/29/21 18:54 12/29/21 20:00 12/30/21 02:00 White Blood Count 11.0 x10^3/uL (4.0-11.0) 11.5 x10^3/uL (4.0-11.0) Red Blood Count 3.55 x10^6/uL (4.30-5.70) 3.77 x10^6/uL (4.30-5.70) Hemoglobin 10.3 g/dL (13.0-17.5) 10.9 g/dL (13.0-17.5) Hematocrit 29.6 % (39.0-53.0) 32.6 % (39.0-53.0) Mean Corpuscular Volume 84 fL (79-100) 87 fL (79-100) Mean Corpuscular Hemoglobin 29 pg (25-35) 29 pg (25-35) Mean Corpuscular Hemoglobin Concent 35 g/dL (31-37) 34 g/dL (31-37) Red Cell Distribution Width 13.0 % (11.5-14.5) 12.7 % (11.5-14.5) Platelet Count 272 x10^3/uL (140-400) 306 x10^3/uL (140-400) Neutrophils (%) (Auto) 80 % (31-73) 96 % (31-73) Lymphocytes (%) (Auto) 6 % (24-48) 2 % (24-48) Monocytes (%) (Auto) 13 % (0-9) 2 % (0-9) Eosinophils (%) (Auto) 1 % (0-3) 0 % (0-3) Basophils (%) (Auto) 0 % (0-3) 0 % (0-3) Neutrophils # (Auto) 8.8 x10^3/uL (1.8-7.7) 11.1 x10^3/uL (1.8-7.7) Lymphocytes # (Auto) 0.7 x10^3/uL (1.0-4.8) 0.2 x10^3/uL (1.0-4.8) Monocytes # (Auto) 1.4 x10^3/uL (0.0-1.1) 0.3 x10^3/uL (0.0-1.1) Eosinophils # (Auto) 0.1 x10^3/uL (0.0-0.7) 0.0 x10^3/uL (0.0-0.7) Basophils # (Auto) 0.0 x10^3/uL (0.0-0.2) 0.0 x10^3/uL (0.0-0.2) Sodium Level 108 mmol/L (136-145) 111 mmol/L (136-145) Potassium Level 4.4 mmol/L (3.5-5.1) 3.9 mmol/L (3.5-5.1) Chloride Level 72 mmol/L (98-107) 75 mmol/L (98-107) Carbon Dioxide Level 35 mmol/L (21-32) 34 mmol/L (21-32) Anion Gap 1 (6-14) 2 (6-14) Blood Urea Nitrogen 5 mg/dL (8-26) 3 mg/dL (8-26) Creatinine 0.3 mg/dL (0.7-1.3) 0.4 mg/dL (0.7-1.3) Estimated GFR (Cockcroft-Gault) > 300.0 221.7 BUN/Creatinine Ratio 17 (6-20) Glucose Level 114 mg/dL (70-99) 150 mg/dL (70-99) Calcium Level 7.4 mg/dL (8.5-10.1) 7.4 mg/dL (8.5-10.1) Total Bilirubin 0.4 mg/dL (0.2-1.0) Aspartate Amino Transf (AST/SGOT) 33 U/L (15-37) Alanine Aminotransferase (ALT/SGPT) 38 U/L (16-63) Alkaline Phosphatase 115 U/L (46-116) Troponin I High Sensitivity 8 ng/L (4-75) XY-Tma-N-Type Natriuretic Peptide 40 pg/mL (0-124) Total Protein 5.7 g/dL (6.4-8.2) Albumin 3.1 g/dL (3.4-5.0) Albumin/Globulin Ratio 1.2 (1.0-1.7) Influenza Type A Antigen Negative (NEGATIVE) Influenza Type B Antigen Negative (NEGATIVE) SARS-CoV-2 Antigen (Rapid) Negative (NEGATIVE) Urine Collection Type Unknown Urine Color Yellow Urine Clarity Clear Urine pH 8.0 (<5.0-8.0) Urine Specific [place] 1.020 (1.000-1.030) Urine Protein Negative mg/dL (NEG-TRACE) Urine Glucose (UA) Negative mg/dL (NEG) Urine Ketones (Stick) Negative mg/dL (NEG) Urine Blood Negative (NEG) Urine Nitrite Negative (NEG) Urine Bilirubin Negative (NEG) Urine Urobilinogen Dipstick 1.0 mg/dL (0.2 mg/dL) Urine Leukocyte Esterase Negative (NEG) Urine RBC 0 /HPF (0-2) Urine WBC 0 /HPF (0-4) Urine Squamous Epithelial Cells Occ /LPF Urine Amorphous Sediment Present /HPF Urine Bacteria 0 /HPF (0-FEW) Urine Mucus Slight /LPF Urine Opiates Screen Neg (NEG) Urine Methadone Screen Neg (NEG) Urine Barbiturates Neg (NEG) Urine Phencyclidine Screen Neg (NEG) Urine Amphetamine/Methamphetamine Neg (NEG) Urine Benzodiazepines Screen Neg (NEG) Urine Cocaine Screen Neg (NEG) Urine Cannabinoids Screen Neg (NEG) Urine Ethyl Alcohol Neg (NEG) Segmented Neutrophils % 92 % (35-66) Band Neutrophils % 1 % (0-9) Lymphocytes % 2 % (24-48) Monocytes % 5 % (0-10) Toxic Granulation Slight Toxic Vacuolation Slight Platelet Estimate Adequate (ADEQUATE) Phosphorus Level 3.3 mg/dL (2.6-4.7) Magnesium Level 1.3 mg/dL (1.8-2.4) Images: Images PROCEDURE: CHEST AP ONLY Exam: Chest one view INDICATION: Shortness of breath TECHNIQUE: Frontal view of the chest Comparisons: 01/31/2021 FINDINGS: The cardiomediastinal silhouette and pulmonary vessels are within normal limits. Strandy left basilar airspace disease. No pleural effusion IMPRESSION: Left basilar airspace disease may relate to atelectasis or developing infectious process. Assessment/Plan Assessment/Plan Left-sided atypical pneumonia, possible gram-negative organisms Acute COPD exacerbation Severe hyponatremia Acute electrolyte derangement suggestive of volume depletion History of tobacco misuse History of COPD History of hypertension History of schizophrenia Admit to hospitalist service for further management Pulmonology consult for BiPAP management Nephrology consult for hyponatremia management Hypertonic saline Continue IV fluids IV steroids Empiric IV antibiotics Pending blood cultures Pending Legionella antigen of the urine and MRSA PCR screen Lovenox for DVT prophylaxis Protonix while on steroids GI prophylaxis ADA diet CODE STATUS full Discussed with RN and SW Disposition inpatient management as above DPOA: Father A total of 45 minutes of critical care time was spent in reviewing chart, labs, and images. Discussed with RN and SW. Justifications for Admission Other Justification COPD exacerbation, hyponatremia TOREY STAFFORD MD Dec 30, 2021 08:36
[2021-12-30] MEDS ORDERED: MAGNESIUM SULFATE 2GM 50 ML IV ONE (08:45)
[2021-12-30 09:09] LABS: BASE EXCESS ABG 6 mmol/L (-3-3); HCO3 ABG 37 mmol/L (21-28); PCO2 ABG 92 mmHg (35-46); PO2 ABG 95 mmHg (75-108); SAT O2 ABG 96 % (92-99)
[2021-12-30 09:10] LABS: FIO2 ABG 32% 3 L Simple Mask
[2021-12-30 09:24] LABS: ANION GAP 3 (6-14); BLOOD UREA NITROGEN 6 mg/dL (8-26); CALCIUM 7.3 mg/dL (8.5-10.1); CARBON DIOXIDE 33 mmol/L (21-32); CHLORIDE 76 mmol/L (98-107); CREATININE 0.3 mg/dL (0.7-1.3); GFR > 300.0; GLUCOSE 143 mg/dL (70-99); POTASSIUM 4.1 mmol/L (3.5-5.1)
[2021-12-30 09:28] LABS: SODIUM 112 mmol/L (136-145)
--- NOTE | 2021-12-30 10:37 | CONS ---
DATE OF CONSULTATION: 12/30/2021 PULMONARY CONSULTATION ATTENDING PHYSICIAN: Francisco Coker MD REASON FOR CONSULTATION: Dyspnea, pneumonia, COPD. HISTORY OF PRESENT ILLNESS: The patient is a 56-year-old male who has COPD. He smoked for 25 years and still smokes. He is on home oxygen. He is not sure what the flow is. He was brought into the hospital with increasing shortness of breath. He also had a cough, which has been productive of light yellow sputum. The patient denies any chest pain. No headaches, no nausea, vomiting, no diarrhea, no dysuria. His chest x-ray was reviewed. It was consistent with COPD and there was a minimal infiltrate in the left base. The patient so far is influenza negative and COVID rapid negative. His toxicology screen was negative as well. I have been asked to see him for further evaluation. PAST MEDICAL HISTORY: COPD, could be severe; history of hypertension; history of pneumonia; schizophrenia. PAST SURGICAL HISTORY: None. ALLERGIES: None. MEDICATIONS: Reviewed as listed in the MRAD including IV Solu-Medrol, antibiotics cefepime and azithromycin. SYSTEM REVIEW: Twelve-point system obtained. Pertinent positives discussed in my present illness, otherwise noncontributory. All systems that were negative were reviewed as well. SOCIAL HISTORY: Smoker for 25 years, still smokes cigarettes. FAMILY HISTORY: Noncontributory to lungs. PHYSICAL EXAMINATION: VITAL SIGNS: Reviewed. Pulse ox is 96% on simple mask. Afebrile. NECK: Supple. LUNGS: With anterior rhonchi. CARDIOVASCULAR: With a regular rate. ABDOMEN: Soft, nontender. EXTREMITIES: With no pitting edema. LABORATORY DATA: Labs are reviewed. Sodium is 112, potassium 4.1, BUN 6 and creatinine 0.3. ABGs with a pH of 7.22, pCO2 of 92 and a pO2 of 95. IMPRESSION: 1. Acute on chronic hypercapnic respiratory failure secondary to acute exacerbation of chronic obstructive pulmonary disease. 2. Left lower lobe pneumonia. 3. Encephalopathy secondary to hypercapnia. 4. Severe hyponatremia. Needs to rule out any central nervous system pathology as well. 5. Suspected underlying severe chronic obstructive pulmonary disease. RECOMMENDATIONS: 1. Continue present nebulizer. 2. Continue antibiotics. It can be deescalated in the next 24-48 hours. 3. IV Solu-Medrol. 4. We will place the patient on BiPAP and follow up ABGs. 5. Avoid any benzodiazepines. 6. We will need a CT head and a CT chest to further workup hyponatremia. 7. Discussed with RN. We will follow along with you. 8. Follow sodium. PILAR DR: Brijesh TID: [id number]
[2021-12-30] MEDS ORDERED: SODIUM CHLORIDE 3 % 250 ML IV ONE (11:00)
--- NOTE | 2021-12-30 11:04 | PDOC2 ---
CONSULT Date of Consult Date of Consult DATE: 12/30/21 TIME: 10:58 Reason for Consult Reason for Consult: LOW NA Referring Physician Referring Physician: NYDIA Identification/Chief Complaint Chief Complaint CONFUSION AND WEAKNESS Source Source: Chart review History of Present Illness Reason for Visit: THIS IS A 56 YR OLD WITH SOB AND WEAKNESS, SOME CONFUSION NOTED WELL. HAS COPD AND DEPENDENT ON O2. STILL SMOKES. THERE IS CONCERNS OF A LLL INFILTRATE ALONG WITH HIS AECOPD. NA OF 108 ON ADMIT. ALSO HAS LOW MAG. NO OTHER SYMPTOMS NOTED Past Medical History Cardiovascular: CHF, HTN Pulmonary: COPD GI: GERD Psych: Addictions, Schizophrenia Musculoskeletal: Weakness Renal/: No pertinent hx Past Surgical History Past Surgical History: No pertinent history Family History Family History: Chronic Bronchitis, Hypertension Social History <1 pack per day ALCOHOL: heavy Drugs: None Lives: Skilled Nursing Current Problem List Problem List Problems Medical Problems: (1) COPD exacerbation Status: Acute Current Medications Current Medications Current Medications Methylprednisolone Sodium Succinate (SOLU-Medrol 125MG VIAL) 125 mg 1X ONCE IV Last administered on 12/29/21at 19:44; Start 12/29/21 at 19:30; Stop 12/29/21 at 19:31; Status DC Albuterol/ Ipratropium (Duoneb) 3 ml 1X ONCE NEB ; Start 12/29/21 at 19:30; Stop 12/29/21 at 19:31; Status DC Sodium Chloride 1,000 ml @ 1,000 mls/hr 1X ONCE IV Last administered on 12/29/21at 19:44; Start 12/29/21 at 19:30; Stop 12/29/21 at 20:29; Status DC Ondansetron HCl (Zofran) 4 mg PRN Q8HRS PRN IVP NAUSEA/VOMITING; Start 12/29/21 at 19:45; Stop 12/30/21 at 19:44 Azithromycin 500 mg/Sodium Chloride 250 ml @ 250 mls/hr Q24H IV Last administered on 12/29/21at 20:58; Start 12/29/21 at 21:00 Cefepime HCl (Maxipime) 1 gm Q24H IVP Last administered on 12/29/21at 21:00; Start 12/29/21 at 21:00 Sennosides (Senna) 17.2 mg PRN BID PRN PO CONSTIPATION; Start 12/29/21 at 20:15 Docusate Sodium (Colace) 100 mg PRN DAILY PRN PO HARD STOOLS; Start 12/29/21 at 20:15 Ondansetron HCl (Zofran) 4 mg PRN Q6HRS PRN IVP NAUSEA/VOMITING, 1st CHOICE; Start 12/29/21 at 20:15 Methylprednisolone Sodium Succinate (SOLU-Medrol 40MG VIAL) 40 mg Q6HRS IV Last administered on 12/30/21at 06:36; Start 12/30/21 at 00:00 Dextrose (Dextrose 50%-Water Syringe) 12.5 gm PRN Q15MIN PRN IV SEE COMMENTS; Start 12/29/21 at 20:15 Sodium Chloride 1,000 ml @ 100 mls/hr Q10H IV Last administered on 12/30/21at 08:13; Start 12/29/21 at 20:15 Acetaminophen (Tylenol) 650 mg PRN Q4HRS PRN PO TEMP OVER 100.4F OR MILD PAIN; Start 12/29/21 at 20:15 Lorazepam (Ativan) 0.5 mg PRN Q6HRS PRN PO ANXIETY / AGITATION; Start 12/29/21 at 20:15; Stop 12/30/21 at 09:53; Status DC Lorazepam (Ativan Inj) 0.25 mg PRN Q4HRS PRN IV ANXIETY / AGITATION; Start 12/29/21 at 20:15; Stop 12/30/21 at 09:53; Status DC Enoxaparin Sodium (Lovenox 40mg Syringe) 40 mg Q24H SQ Last administered on 12/29/21at 20:55; Start 12/29/21 at 21:00 Prochlorperazine Edisylate (Compazine) 10 mg PRN Q6HRS PRN IV NAUSEA/VOMITING, 2nd CHOICE; Start 12/29/21 at 20:15 Diphenhydramine HCl (Benadryl) 25 mg PRN Q6HRS PRN IVP ITCHING; Start 12/29/21 at 20:15 Diphenhydramine HCl (Benadryl) 25 mg PRN Q6HRS PRN PO ITCHING; Start 12/29/21 at 20:15 Diphenhydramine HCl (Benadryl) 25 mg PRN QHS PRN PO INSOMNIA, 1st CHOICE; Start 12/29/21 at 20:15 Zolpidem Tartrate (Ambien) 2.5 mg PRN QHS PRN PO INSOMNIA, 2nd CHOICE; Start 12/29/21 at 20:15 Magnesium Sulfate 50 ml @ 25 mls/hr 1X ONCE IV Last administered on 12/30/21at 10:44; Start 12/30/21 at 08:45; Stop 12/30/21 at 10:44; Status DC Pantoprazole Sodium (PROTONIX VIAL for IV PUSH) 40 mg DAILYAC IVP ; Start 12/30/21 at 11:30 Active Scripts Active Metoprolol Succinate ( Xl ) (Metoprolol Succinate) 25 Mg Tab.er.24h 12.5 Mg PO DAILY 30 Days Atorvastatin Calcium 40 Mg Tablet 80 Mg PO QHS 30 Days Proair Hfa (Albuterol Sulfate) 8.5 Gm Hfa.aer.ad 2.5 Mg NEB PRN Q4HRS PRN 30 Days Vitamin B-1 (Thiamine Mononitrate) 100 Mg Tablet 100 Mg PO DAILY 30 Days Invega Sustenna (Paliperidone Palmitate) 117 Mg/0.75 Ml Disp.syrin 0 IM QMONTH 30 Days Next dose 11/21/2020 Reported Amlodipine Besylate 10 Mg Tablet 10 Mg PO DAILY Multi Vitamin Daily (Multivitamin) 1 Each Tablet 1 Tab PO DAILY 30 Days Lisinopril 40 Mg Tablet 40 Mg PO DAILY Famotidine 20 Mg Tablet 20 Mg PO BID Combivent Respimat Inhal (Ipratropium/Albuterol Sulfate) 4 Gm Aer.w.adap 1 Inh IH QID Biofreeze (Menthol) 118 Ml Gel..ml. 1 Keri TP QID 7 Days Allergies Allergies: Coded Allergies: No Known Drug Allergies (Unverified , 12/29/21) ROS Review of System UNABLE TO OBTAIN Physical Exam General: Alert, Cooperative, No acute distress HEENT: Atraumatic Lungs: Other (FEW EXP WHEEZES) Heart: Regular rate Abdomen: Normal bowel sounds Extremities: No clubbing Skin: No breakdown Neuro: Other (CONFUSED) Psych/Mental Status: Other (NO ASYMMETRY) MUSCULOSKELETAL: No joint tenderness, No deformity, No swelling Vitals VITALS Vital Signs Date Time Temp Pulse Resp B/P (MAP) Pulse Ox O2 Delivery O2 Flow Rate FiO2 3/6/22 08:30 Mask 3.0 12/30/21 07:00 97.9 92 24 134/64 (87) 96 97.9 Labs Labs Laboratory Tests Test 12/29/21 18:40 12/29/21 18:54 12/29/21 20:00 12/30/21 02:00 White Blood Count 11.0 x10^3/uL (4.0-11.0) 11.5 x10^3/uL (4.0-11.0) Red Blood Count 3.55 x10^6/uL (4.30-5.70) 3.77 x10^6/uL (4.30-5.70) Hemoglobin 10.3 g/dL (13.0-17.5) 10.9 g/dL (13.0-17.5) Hematocrit 29.6 % (39.0-53.0) 32.6 % (39.0-53.0) Mean Corpuscular Volume 84 fL (79-100) 87 fL (79-100) Mean Corpuscular Hemoglobin 29 pg (25-35) 29 pg (25-35) Mean Corpuscular Hemoglobin Concent 35 g/dL (31-37) 34 g/dL (31-37) Red Cell Distribution Width 13.0 % (11.5-14.5) 12.7 % (11.5-14.5) Platelet Count 272 x10^3/uL (140-400) 306 x10^3/uL (140-400) Neutrophils (%) (Auto) 80 % (31-73) 96 % (31-73) Lymphocytes (%) (Auto) 6 % (24-48) 2 % (24-48) Monocytes (%) (Auto) 13 % (0-9) 2 % (0-9) Eosinophils (%) (Auto) 1 % (0-3) 0 % (0-3) Basophils (%) (Auto) 0 % (0-3) 0 % (0-3) Neutrophils # (Auto) 8.8 x10^3/uL (1.8-7.7) 11.1 x10^3/uL (1.8-7.7) Lymphocytes # (Auto) 0.7 x10^3/uL (1.0-4.8) 0.2 x10^3/uL (1.0-4.8) Monocytes # (Auto) 1.4 x10^3/uL (0.0-1.1) 0.3 x10^3/uL (0.0-1.1) Eosinophils # (Auto) 0.1 x10^3/uL (0.0-0.7) 0.0 x10^3/uL (0.0-0.7) Basophils # (Auto) 0.0 x10^3/uL (0.0-0.2) 0.0 x10^3/uL (0.0-0.2) Sodium Level 108 mmol/L (136-145) 111 mmol/L (136-145) Potassium Level 4.4 mmol/L (3.5-5.1) 3.9 mmol/L (3.5-5.1) Chloride Level 72 mmol/L (98-107) 75 mmol/L (98-107) Carbon Dioxide Level 35 mmol/L (21-32) 34 mmol/L (21-32) Anion Gap 1 (6-14) 2 (6-14) Blood Urea Nitrogen 5 mg/dL (8-26) 3 mg/dL (8-26) Creatinine 0.3 mg/dL (0.7-1.3) 0.4 mg/dL (0.7-1.3) Estimated GFR (Cockcroft-Gault) > 300.0 221.7 BUN/Creatinine Ratio 17 (6-20) Glucose Level 114 mg/dL (70-99) 150 mg/dL (70-99) Calcium Level 7.4 mg/dL (8.5-10.1) 7.4 mg/dL (8.5-10.1) Total Bilirubin 0.4 mg/dL (0.2-1.0) Aspartate Amino Transf (AST/SGOT) 33 U/L (15-37) Alanine Aminotransferase (ALT/SGPT) 38 U/L (16-63) Alkaline Phosphatase 115 U/L (46-116) Troponin I High Sensitivity 8 ng/L (4-75) XW-Uwu-B-Type Natriuretic Peptide 40 pg/mL (0-124) Total Protein 5.7 g/dL (6.4-8.2) Albumin 3.1 g/dL (3.4-5.0) Albumin/Globulin Ratio 1.2 (1.0-1.7) Influenza Type A Antigen Negative (NEGATIVE) Influenza Type B Antigen Negative (NEGATIVE) SARS-CoV-2 Antigen (Rapid) Negative (NEGATIVE) Urine Collection Type Unknown Urine Color Yellow Urine Clarity Clear Urine pH 8.0 (<5.0-8.0) Urine Specific [place] 1.020 (1.000-1.030) Urine Protein Negative mg/dL (NEG-TRACE) Urine Glucose (UA) Negative mg/dL (NEG) Urine Ketones (Stick) Negative mg/dL (NEG) Urine Blood Negative (NEG) Urine Nitrite Negative (NEG) Urine Bilirubin Negative (NEG) Urine Urobilinogen Dipstick 1.0 mg/dL (0.2 mg/dL) Urine Leukocyte Esterase Negative (NEG) Urine RBC 0 /HPF (0-2) Urine WBC 0 /HPF (0-4) Urine Squamous Epithelial Cells Occ /LPF Urine Amorphous Sediment Present /HPF Urine Bacteria 0 /HPF (0-FEW) Urine Mucus Slight /LPF Urine Opiates Screen Neg (NEG) Urine Methadone Screen Neg (NEG) Urine Barbiturates Neg (NEG) Urine Phencyclidine Screen Neg (NEG) Urine Amphetamine/Methamphetamine Neg (NEG) Urine Benzodiazepines Screen Neg (NEG) Urine Cocaine Screen Neg (NEG) Urine Cannabinoids Screen Neg (NEG) Urine Ethyl Alcohol Neg (NEG) Segmented Neutrophils % 92 % (35-66) Band Neutrophils % 1 % (0-9) Lymphocytes % 2 % (24-48) Monocytes % 5 % (0-10) Toxic Granulation Slight Toxic Vacuolation Slight Platelet Estimate Adequate (ADEQUATE) Phosphorus Level 3.3 mg/dL (2.6-4.7) Magnesium Level 1.3 mg/dL (1.8-2.4) Test 12/30/21 08:15 12/30/21 09:08 Sodium Level 112 mmol/L (136-145) Potassium Level 4.1 mmol/L (3.5-5.1) Chloride Level 76 mmol/L (98-107) Carbon Dioxide Level 33 mmol/L (21-32) Anion Gap 3 (6-14) Blood Urea Nitrogen 6 mg/dL (8-26) Creatinine 0.3 mg/dL (0.7-1.3) Estimated GFR (Cockcroft-Gault) > 300.0 Glucose Level 143 mg/dL (70-99) Calcium Level 7.3 mg/dL (8.5-10.1) O2 Saturation 96 % (92-99) Arterial Blood pH 7.22 (7.35-7.45) Arterial Blood pCO2 at Patient Temp 92 mmHg (35-46) Arterial Blood pO2 at Patient Temp 95 mmHg (75-108) Arterial Blood HCO3 37 mmol/L (21-28) Arterial Blood Base Excess 6 mmol/L (-3-3) FiO2 32% 3 l simple mask Laboratory Tests Test 12/29/21 18:40 12/29/21 18:54 12/29/21 20:00 12/30/21 02:00 White Blood Count 11.0 x10^3/uL (4.0-11.0) 11.5 x10^3/uL (4.0-11.0) Red Blood Count 3.55 x10^6/uL (4.30-5.70) 3.77 x10^6/uL (4.30-5.70) Hemoglobin 10.3 g/dL (13.0-17.5) 10.9 g/dL (13.0-17.5) Hematocrit 29.6 % (39.0-53.0) 32.6 % (39.0-53.0) Mean Corpuscular Volume 84 fL (79-100) 87 fL (79-100) Mean Corpuscular Hemoglobin 29 pg (25-35) 29 pg (25-35) Mean Corpuscular Hemoglobin Concent 35 g/dL (31-37) 34 g/dL (31-37) Red Cell Distribution Width 13.0 % (11.5-14.5) 12.7 % (11.5-14.5) Platelet Count 272 x10^3/uL (140-400) 306 x10^3/uL (140-400) Neutrophils (%) (Auto) 80 % (31-73) 96 % (31-73) Lymphocytes (%) (Auto) 6 % (24-48) 2 % (24-48) Monocytes (%) (Auto) 13 % (0-9) 2 % (0-9) Eosinophils (%) (Auto) 1 % (0-3) 0 % (0-3) Basophils (%) (Auto) 0 % (0-3) 0 % (0-3) Neutrophils # (Auto) 8.8 x10^3/uL (1.8-7.7) 11.1 x10^3/uL (1.8-7.7) Lymphocytes # (Auto) 0.7 x10^3/uL (1.0-4.8) 0.2 x10^3/uL (1.0-4.8) Monocytes # (Auto) 1.4 x10^3/uL (0.0-1.1) 0.3 x10^3/uL (0.0-1.1) Eosinophils # (Auto) 0.1 x10^3/uL (0.0-0.7) 0.0 x10^3/uL (0.0-0.7) Basophils # (Auto) 0.0 x10^3/uL (0.0-0.2) 0.0 x10^3/uL (0.0-0.2) Sodium Level 108 mmol/L (136-145) 111 mmol/L (136-145) Potassium Level 4.4 mmol/L (3.5-5.1) 3.9 mmol/L (3.5-5.1) Chloride Level 72 mmol/L (98-107) 75 mmol/L (98-107) Carbon Dioxide Level 35 mmol/L (21-32) 34 mmol/L (21-32) Anion Gap 1 (6-14) 2 (6-14) Blood Urea Nitrogen 5 mg/dL (8-26) 3 mg/dL (8-26) Creatinine 0.3 mg/dL (0.7-1.3) 0.4 mg/dL (0.7-1.3) Estimated GFR (Cockcroft-Gault) > 300.0 221.7 BUN/Creatinine Ratio 17 (6-20) Glucose Level 114 mg/dL (70-99) 150 mg/dL (70-99) Calcium Level 7.4 mg/dL (8.5-10.1) 7.4 mg/dL (8.5-10.1) Total Bilirubin 0.4 mg/dL (0.2-1.0) Aspartate Amino Transf (AST/SGOT) 33 U/L (15-37) Alanine Aminotransferase (ALT/SGPT) 38 U/L (16-63) Alkaline Phosphatase 115 U/L (46-116) Troponin I High Sensitivity 8 ng/L (4-75) IR-Wkw-A-Type Natriuretic Peptide 40 pg/mL (0-124) Total Protein 5.7 g/dL (6.4-8.2) Albumin 3.1 g/dL (3.4-5.0) Albumin/Globulin Ratio 1.2 (1.0-1.7) Influenza Type A Antigen Negative (NEGATIVE) Influenza Type B Antigen Negative (NEGATIVE) SARS-CoV-2 Antigen (Rapid) Negative (NEGATIVE) Urine Collection Type Unknown Urine Color Yellow Urine Clarity Clear Urine pH 8.0 (<5.0-8.0) Urine Specific [place] 1.020 (1.000-1.030) Urine Protein Negative mg/dL (NEG-TRACE) Urine Glucose (UA) Negative mg/dL (NEG) Urine Ketones (Stick) Negative mg/dL (NEG) Urine Blood Negative (NEG) Urine Nitrite Negative (NEG) Urine Bilirubin Negative (NEG) Urine Urobilinogen Dipstick 1.0 mg/dL (0.2 mg/dL) Urine Leukocyte Esterase Negative (NEG) Urine RBC 0 /HPF (0-2) Urine WBC 0 /HPF (0-4) Urine Squamous Epithelial Cells Occ /LPF Urine Amorphous Sediment Present /HPF Urine Bacteria 0 /HPF (0-FEW) Urine Mucus Slight /LPF Urine Opiates Screen Neg (NEG) Urine Methadone Screen Neg (NEG) Urine Barbiturates Neg (NEG) Urine Phencyclidine Screen Neg (NEG) Urine Amphetamine/Methamphetamine Neg (NEG) Urine Benzodiazepines Screen Neg (NEG) Urine Cocaine Screen Neg (NEG) Urine Cannabinoids Screen Neg (NEG) Urine Ethyl Alcohol Neg (NEG) Segmented Neutrophils % 92 % (35-66) Band Neutrophils % 1 % (0-9) Lymphocytes % 2 % (24-48) Monocytes % 5 % (0-10) Toxic Granulation Slight Toxic Vacuolation Slight Platelet Estimate Adequate (ADEQUATE) Phosphorus Level 3.3 mg/dL (2.6-4.7) Magnesium Level 1.3 mg/dL (1.8-2.4) Test 12/30/21 08:15 12/30/21 09:08 Sodium Level 112 mmol/L (136-145) Potassium Level 4.1 mmol/L (3.5-5.1) Chloride Level 76 mmol/L (98-107) Carbon Dioxide Level 33 mmol/L (21-32) Anion Gap 3 (6-14) Blood Urea Nitrogen 6 mg/dL (8-26) Creatinine 0.3 mg/dL (0.7-1.3) Estimated GFR (Cockcroft-Gault) > 300.0 Glucose Level 143 mg/dL (70-99) Calcium Level 7.3 mg/dL (8.5-10.1) O2 Saturation 96 % (92-99) Arterial Blood pH 7.22 (7.35-7.45) Arterial Blood pCO2 at Patient Temp 92 mmHg (35-46) Arterial Blood pO2 at Patient Temp 95 mmHg (75-108) Arterial Blood HCO3 37 mmol/L (21-28) Arterial Blood Base Excess 6 mmol/L (-3-3) FiO2 32% 3 l simple mask Images Images PATIENT: BEBETO PORTER ACCOUNT: [id number] : 1965 LOCATION: ER AGE: 56 SEX: M EXAM STATUS: REG ER ORD. PHYSICIAN: DINESH JOHNSON DO REASON: sob PROCEDURE: CHEST AP ONLY Exam: Chest one view INDICATION: Shortness of breath TECHNIQUE: Frontal view of the chest Comparisons: 01/31/2021 FINDINGS: The cardiomediastinal silhouette and pulmonary vessels are within normal limits. Strandy left basilar airspace disease. No pleural effusion IMPRESSION: Left basilar airspace disease may relate to atelectasis or developing infectious process. Electronically signed by: Slyvie Gleason MD (12/29/2021 7:45 PM) 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
[2021-12-30] MEDS: PANTOPRAZOLE IV PUSH 40 MG VIAL. IVP SCH (11:36)
[2021-12-30 12:38] LABS: BASE EXCESS ABG 2 mmol/L (-3-3); HCO3 ABG 33 mmol/L (21-28); PO2 ABG 92 mmHg (75-108); SAT O2 ABG 95 % (92-99)
[2021-12-30 12:44] LABS: PCO2 ABG 90 mmHg (35-46)
[2021-12-30 12:45] LABS: FIO2 ABG 40% 22/8 R=24
--- NOTE | 2021-12-30 14:55 | NUR ---
Patient transferred to ICU per Dr. Pérez. Patient's oxygen saturation on bipap had begun to fall in the 80's. Patient is requiring frequent monitoring. report given to Leroy in ICU.
[2021-12-30 17:05] LABS: BASE EXCESS ABG 6 mmol/L (-3-3); HCO3 ABG 35 mmol/L (21-28)
[2021-12-30 17:11] LABS: PCO2 ABG 72 mmHg (35-46); SAT O2 ABG 60 % (92-99)
[2021-12-30 17:12] LABS: PO2 ABG 33 mmHg (75-108)
[2021-12-30] MEDS ORDERED: PROPOFOL 100 ML IV ONE (17:25)
[2021-12-30] MEDS ORDERED: NOREPINEPHRINE VIAL 8 MG in IV DEXTROSE 5% 250 ML IV PRN (18:00)
[2021-12-30] MEDS ORDERED: MIDAZOLAM HCL/PF 5 MG/5 ML VIAL. IVP PRN (18:00)
[2021-12-30] MEDS: MIDAZOLAM 100mg/100ml NS BAG 100 ML IV PRN (18:28)
[2021-12-30] MEDS: PROPOFOL 100 ML IV PRN ×2 (18:29→21:34)
[2021-12-30] MEDS ORDERED: SUCCINYLCHOLINE 200 MG/10 ML VIAL. IV ONE (18:45)
--- NOTE | 2021-12-30 20:04 | RAD ---
Exam: Chest one view INDICATION: Intubation TECHNIQUE: Frontal view of the chest Comparisons: 12/29/2021 FINDINGS: Endotracheal tube with tip approximately 3 cm above the yadira. Enteric tube with tip in the left upp er quadrant likely in the proximal stomach. Sidehole likely projects below the level of the GE juncti on. The cardiomediastinal silhouette and pulmonary vessels are within normal limits. Left basilar airspace disease with small left pleural effusion. IMPRESSION: 1. Lines and tubes described above. 2. Left basilar airspace disease. Electronically signed by: Sylvie Gleason MD (12/30/2021 8:02 PM) [facility]
[2021-12-30 20:23] LABS: BASE EXCESS ABG 5 mmol/L (-3-3); HCO3 ABG 28 mmol/L (21-28); PCO2 ABG 37 mmHg (35-46); PO2 ABG 285 mmHg (75-108); SAT O2 ABG 99 % (92-99)
[2021-12-30 20:38] LABS: FIO2 ABG 100
[2021-12-30] MEDS ORDERED: LACTOBACILLUS RHAMNOSUS GG 1 CAPSULE. PO SCH (21:00)
[2021-12-30] MEDS: CEFEPIME HCL IV Push 1 GM VIAL. IVP SCH (21:19)
[2021-12-30] MEDS: AZITHROMYCIN 500 MG in IV NORMAL SALINE 250ML 250 ML IV SCH (21:19)
[2021-12-30] MEDS: ENOXAPARIN 40 MG/0.4 ML SYRINGE. SQ SCH (21:19)
[2021-12-31] VITALS (22 sets, daily range): BP systolic 98–140; BP diastolic 60–92
[2021-12-31] MEDS: methylPREDNISolone SOD SUCC PF 40 MG/ML VIAL. IV SCH ×5 (00:51→23:57)
[2021-12-31] MEDS: PROPOFOL 100 ML IV PRN ×3 (05:56→20:14)
[2021-12-31 06:08] LABS: BASO # 0.1 x10^3/uL (0.0-0.2); BASO % 1 % (0-3); EOS % 0 % (0-3); HEMATOCRIT 31.3 % (39.0-53.0); HEMOGLOBIN 10.1 g/dL (13.0-17.5); LYMPH # 0.2 x10^3/uL (1.0-4.8); LYMPH % 2 % (24-48); MEAN CORPUSCULAR HEMOGLOBIN 29 pg (25-35); MEAN CORPUSCULAR HGB CONC 32 g/dL (31-37); MEAN CORPUSCULAR VOLUME 88 fL (79-100); MONO # 0.9 x10^3/uL (0.0-1.1); MONO % 8 % (0-9); NEUT # 10.2 x10^3/uL (1.8-7.7); NEUT % 89 % (31-73); PLATELET COUNT 304 x10^3/uL (140-400); RED BLOOD COUNT 3.54 x10^6/uL (4.30-5.70); WHITE BLOOD COUNT 11.4 x10^3/uL (4.0-11.0)
[2021-12-31 06:27] LABS: CALCIUM 8.3 mg/dL (8.5-10.1); CREATININE 0.4 mg/dL (0.7-1.3); GFR 221.7; PHOSPHORUS 3.5 mg/dL (2.6-4.7); POTASSIUM 4.5 mmol/L (3.5-5.1); URIC ACID 1.6 mg/dL (3.5-7.2)
[2021-12-31 08:49] LABS: BASE EXCESS ABG 7 mmol/L (-3-3); HCO3 ABG 33 mmol/L (21-28); PCO2 ABG 53 mmHg (35-46); PO2 ABG 87 mmHg (75-108); SAT O2 ABG 96 % (92-99)
[2021-12-31] MEDS: PANTOPRAZOLE IV PUSH 40 MG VIAL. IVP SCH (09:19)
--- NOTE | 2021-12-31 10:17 | PDOC ---
PULMONARY PROGRESS NOTES DATE: 12/31/21 TIME: 10:14 Subjective Patient developed progressive hypercapnia and hypoxia. BiPAP was continued within change in settings. It did not improve patient's clinical condition. He was lethargic and became less responsive. Patient was intubated last night. Artery blood gases improved. Patient is on assist control mode. Vitals Vital Signs Date Time Temp Pulse Resp B/P (MAP) Pulse Ox O2 Delivery O2 Flow Rate FiO2 12/31/21 09:00 60 14 118/71 97 Ventilator 12/31/21 08:00 97.5 97.5 12/30/21 08:30 3.0 Comments Remains intubated and sedated. On assist control mode HEENT: Other Lungs: Other (Decreased breath sounds at the bases.) Cardiovascular: S1, S2 Abdomen: Soft, Non-tender, Other Extremities: No Edema Labs Laboratory Tests Test 12/29/21 18:40 12/29/21 18:54 12/29/21 20:00 12/30/21 02:00 White Blood Count 11.0 x10^3/uL (4.0-11.0) 11.5 x10^3/uL (4.0-11.0) Red Blood Count 3.55 x10^6/uL (4.30-5.70) 3.77 x10^6/uL (4.30-5.70) Hemoglobin 10.3 g/dL (13.0-17.5) 10.9 g/dL (13.0-17.5) Hematocrit 29.6 % (39.0-53.0) 32.6 % (39.0-53.0) Mean Corpuscular Volume 84 fL (79-100) 87 fL (79-100) Mean Corpuscular Hemoglobin 29 pg (25-35) 29 pg (25-35) Mean Corpuscular Hemoglobin Concent 35 g/dL (31-37) 34 g/dL (31-37) Red Cell Distribution Width 13.0 % (11.5-14.5) 12.7 % (11.5-14.5) Platelet Count 272 x10^3/uL (140-400) 306 x10^3/uL (140-400) Neutrophils (%) (Auto) 80 % (31-73) 96 % (31-73) Lymphocytes (%) (Auto) 6 % (24-48) 2 % (24-48) Monocytes (%) (Auto) 13 % (0-9) 2 % (0-9) Eosinophils (%) (Auto) 1 % (0-3) 0 % (0-3) Basophils (%) (Auto) 0 % (0-3) 0 % (0-3) Neutrophils # (Auto) 8.8 x10^3/uL (1.8-7.7) 11.1 x10^3/uL (1.8-7.7) Lymphocytes # (Auto) 0.7 x10^3/uL (1.0-4.8) 0.2 x10^3/uL (1.0-4.8) Monocytes # (Auto) 1.4 x10^3/uL (0.0-1.1) 0.3 x10^3/uL (0.0-1.1) Eosinophils # (Auto) 0.1 x10^3/uL (0.0-0.7) 0.0 x10^3/uL (0.0-0.7) Basophils # (Auto) 0.0 x10^3/uL (0.0-0.2) 0.0 x10^3/uL (0.0-0.2) Sodium Level 108 mmol/L (136-145) 111 mmol/L (136-145) Potassium Level 4.4 mmol/L (3.5-5.1) 3.9 mmol/L (3.5-5.1) Chloride Level 72 mmol/L (98-107) 75 mmol/L (98-107) Carbon Dioxide Level 35 mmol/L (21-32) 34 mmol/L (21-32) Anion Gap 1 (6-14) 2 (6-14) Blood Urea Nitrogen 5 mg/dL (8-26) 3 mg/dL (8-26) Creatinine 0.3 mg/dL (0.7-1.3) 0.4 mg/dL (0.7-1.3) Estimated GFR (Cockcroft-Gault) > 300.0 221.7 BUN/Creatinine Ratio 17 (6-20) Glucose Level 114 mg/dL (70-99) 150 mg/dL (70-99) Calcium Level 7.4 mg/dL (8.5-10.1) 7.4 mg/dL (8.5-10.1) Total Bilirubin 0.4 mg/dL (0.2-1.0) Aspartate Amino Transf (AST/SGOT) 33 U/L (15-37) Alanine Aminotransferase (ALT/SGPT) 38 U/L (16-63) Alkaline Phosphatase 115 U/L (46-116) Troponin I High Sensitivity 8 ng/L (4-75) IK-Mtb-T-Type Natriuretic Peptide 40 pg/mL (0-124) Total Protein 5.7 g/dL (6.4-8.2) Albumin 3.1 g/dL (3.4-5.0) Albumin/Globulin Ratio 1.2 (1.0-1.7) Influenza Type A Antigen Negative (NEGATIVE) Influenza Type B Antigen Negative (NEGATIVE) SARS-CoV-2 Antigen (Rapid) Negative (NEGATIVE) Urine Collection Type Unknown Urine Color Yellow Urine Clarity Clear Urine pH 8.0 (<5.0-8.0) Urine Specific [place] 1.020 (1.000-1.030) Urine Protein Negative mg/dL (NEG-TRACE) Urine Glucose (UA) Negative mg/dL (NEG) Urine Ketones (Stick) Negative mg/dL (NEG) Urine Blood Negative (NEG) Urine Nitrite Negative (NEG) Urine Bilirubin Negative (NEG) Urine Urobilinogen Dipstick 1.0 mg/dL (0.2 mg/dL) Urine Leukocyte Esterase Negative (NEG) Urine RBC 0 /HPF (0-2) Urine WBC 0 /HPF (0-4) Urine Squamous Epithelial Cells Occ /LPF Urine Amorphous Sediment Present /HPF Urine Bacteria 0 /HPF (0-FEW) Urine Mucus Slight /LPF Urine Opiates Screen Neg (NEG) Urine Methadone Screen Neg (NEG) Urine Barbiturates Neg (NEG) Urine Phencyclidine Screen Neg (NEG) Urine Amphetamine/Methamphetamine Neg (NEG) Urine Benzodiazepines Screen Neg (NEG) Urine Cocaine Screen Neg (NEG) Urine Cannabinoids Screen Neg (NEG) Urine Ethyl Alcohol Neg (NEG) Segmented Neutrophils % 92 % (35-66) Band Neutrophils % 1 % (0-9) Lymphocytes % 2 % (24-48) Monocytes % 5 % (0-10) Toxic Granulation Slight Toxic Vacuolation Slight Platelet Estimate Adequate (ADEQUATE) Phosphorus Level 3.3 mg/dL (2.6-4.7) Magnesium Level 1.3 mg/dL (1.8-2.4) Test 12/30/21 08:15 12/30/21 09:08 12/30/21 12:30 12/30/21 13:01 Sodium Level 112 mmol/L (136-145) Potassium Level 4.1 mmol/L (3.5-5.1) Chloride Level 76 mmol/L (98-107) Carbon Dioxide Level 33 mmol/L (21-32) Anion Gap 3 (6-14) Blood Urea Nitrogen 6 mg/dL (8-26) Creatinine 0.3 mg/dL (0.7-1.3) Estimated GFR (Cockcroft-Gault) > 300.0 Glucose Level 143 mg/dL (70-99) Calcium Level 7.3 mg/dL (8.5-10.1) O2 Saturation 96 % (92-99) 95 % (92-99) Arterial Blood pH 7.22 (7.35-7.45) 7.18 (7.35-7.45) Arterial Blood pCO2 at Patient Temp 92 mmHg (35-46) 90 mmHg (35-46) Arterial Blood pO2 at Patient Temp 95 mmHg (75-108) 92 mmHg (75-108) Arterial Blood HCO3 37 mmol/L (21-28) 33 mmol/L (21-28) Arterial Blood Base Excess 6 mmol/L (-3-3) 2 mmol/L (-3-3) FiO2 32% 3 l simple mask 40% 17/06 r=24 Coronavirus (COVID-19)(PCR) Not detected (NOT DETECTD) Test 12/30/21 16:57 12/30/21 20:12 12/31/21 05:50 12/31/21 08:00 O2 Saturation 60 % (92-99) 99 % (92-99) 96 % (92-99) Arterial Blood pH 7.30 (7.35-7.45) 7.51 (7.35-7.45) 7.41 (7.35-7.45) Arterial Blood pCO2 at Patient Temp 72 mmHg (35-46) 37 mmHg (35-46) 53 mmHg (35-46) Arterial Blood pO2 at Patient Temp 33 mmHg (75-108) 285 mmHg (75-108) 87 mmHg (75-108) Arterial Blood HCO3 35 mmol/L (21-28) 28 mmol/L (21-28) 33 mmol/L (21-28) Arterial Blood Base Excess 6 mmol/L (-3-3) 5 mmol/L (-3-3) 7 mmol/L (-3-3) FiO2 30% bipap 100 60% vent White Blood Count 11.4 x10^3/uL (4.0-11.0) Red Blood Count 3.54 x10^6/uL (4.30-5.70) Hemoglobin 10.1 g/dL (13.0-17.5) Hematocrit 31.3 % (39.0-53.0) Mean Corpuscular Volume 88 fL (79-100) Mean Corpuscular Hemoglobin 29 pg (25-35) Mean Corpuscular Hemoglobin Concent 32 g/dL (31-37) Red Cell Distribution Width 13.0 % (11.5-14.5) Platelet Count 304 x10^3/uL (140-400) Neutrophils (%) (Auto) 89 % (31-73) Lymphocytes (%) (Auto) 2 % (24-48) Monocytes (%) (Auto) 8 % (0-9) Eosinophils (%) (Auto) 0 % (0-3) Basophils (%) (Auto) 1 % (0-3) Neutrophils # (Auto) 10.2 x10^3/uL (1.8-7.7) Lymphocytes # (Auto) 0.2 x10^3/uL (1.0-4.8) Monocytes # (Auto) 0.9 x10^3/uL (0.0-1.1) Eosinophils # (Auto) 0.0 x10^3/uL (0.0-0.7) Basophils # (Auto) 0.1 x10^3/uL (0.0-0.2) Sodium Level 126 mmol/L (136-145) Potassium Level 4.5 mmol/L (3.5-5.1) Chloride Level 89 mmol/L (98-107) Carbon Dioxide Level 35 mmol/L (21-32) Anion Gap 2 (6-14) Blood Urea Nitrogen 9 mg/dL (8-26) Creatinine 0.4 mg/dL (0.7-1.3) Estimated GFR (Cockcroft-Gault) 221.7 Glucose Level 137 mg/dL (70-99) Uric Acid 1.6 mg/dL (3.5-7.2) Calcium Level 8.3 mg/dL (8.5-10.1) Phosphorus Level 3.5 mg/dL (2.6-4.7) Magnesium Level 2.0 mg/dL (1.8-2.4) Laboratory Tests Test 12/30/21 12:30 12/30/21 13:01 12/30/21 16:57 12/30/21 20:12 O2 Saturation 95 % (92-99) 60 % (92-99) 99 % (92-99) Arterial Blood pH 7.18 (7.35-7.45) 7.30 (7.35-7.45) 7.51 (7.35-7.45) Arterial Blood pCO2 at Patient Temp 90 mmHg (35-46) 72 mmHg (35-46) 37 mmHg (35-46) Arterial Blood pO2 at Patient Temp 92 mmHg (75-108) 33 mmHg (75-108) 285 mmHg (75-108) Arterial Blood HCO3 33 mmol/L (21-28) 35 mmol/L (21-28) 28 mmol/L (21-28) Arterial Blood Base Excess 2 mmol/L (-3-3) 6 mmol/L (-3-3) 5 mmol/L (-3-3) FiO2 40% 17/06 r=24 30% bipap 100 Coronavirus (COVID-19)(PCR) Not detected (NOT DETECTD) Test 12/31/21 05:50 12/31/21 08:00 White Blood Count 11.4 x10^3/uL (4.0-11.0) Red Blood Count 3.54 x10^6/uL (4.30-5.70) Hemoglobin 10.1 g/dL (13.0-17.5) Hematocrit 31.3 % (39.0-53.0) Mean Corpuscular Volume 88 fL (79-100) Mean Corpuscular Hemoglobin 29 pg (25-35) Mean Corpuscular Hemoglobin Concent 32 g/dL (31-37) Red Cell Distribution Width 13.0 % (11.5-14.5) Platelet Count 304 x10^3/uL (140-400) Neutrophils (%) (Auto) 89 % (31-73) Lymphocytes (%) (Auto) 2 % (24-48) Monocytes (%) (Auto) 8 % (0-9) Eosinophils (%) (Auto) 0 % (0-3) Basophils (%) (Auto) 1 % (0-3) Neutrophils # (Auto) 10.2 x10^3/uL (1.8-7.7) Lymphocytes # (Auto) 0.2 x10^3/uL (1.0-4.8) Monocytes # (Auto) 0.9 x10^3/uL (0.0-1.1) Eosinophils # (Auto) 0.0 x10^3/uL (0.0-0.7) Basophils # (Auto) 0.1 x10^3/uL (0.0-0.2) Sodium Level 126 mmol/L (136-145) Potassium Level 4.5 mmol/L (3.5-5.1) Chloride Level 89 mmol/L (98-107) Carbon Dioxide Level 35 mmol/L (21-32) Anion Gap 2 (6-14) Blood Urea Nitrogen 9 mg/dL (8-26) Creatinine 0.4 mg/dL (0.7-1.3) Estimated GFR (Cockcroft-Gault) 221.7 Glucose Level 137 mg/dL (70-99) Uric Acid 1.6 mg/dL (3.5-7.2) Calcium Level 8.3 mg/dL (8.5-10.1) Phosphorus Level 3.5 mg/dL (2.6-4.7) Magnesium Level 2.0 mg/dL (1.8-2.4) O2 Saturation 96 % (92-99) Arterial Blood pH 7.41 (7.35-7.45) Arterial Blood pCO2 at Patient Temp 53 mmHg (35-46) Arterial Blood pO2 at Patient Temp 87 mmHg (75-108) Arterial Blood HCO3 33 mmol/L (21-28) Arterial Blood Base Excess 7 mmol/L (-3-3) FiO2 60% vent Medications Active Scripts Medications Dose Route/Sig Max Daily Dose Days Date Category Dose Instructions Amlodipine Besylate 10 Mg Tablet 10 Mg PO DAILY 12/30/21 Reported Metoprolol Succinate ( Xl ) (Metoprolol Succinate) 25 Mg Tab.er.24h 12.5 Mg PO DAILY 30 02/02/21 Rx Atorvastatin Calcium 40 Mg Tablet 80 Mg PO QHS 30 02/02/21 Rx Proair Hfa (Albuterol Sulfate) 8.5 Gm Hfa.aer.ad 2.5 Mg NEB PRN Q4HRS PRN 30 02/02/21 Rx Multi Vitamin Daily (Multivitamin) 1 Each Tablet 1 Tab PO DAILY 30 01/30/21 Reported Lisinopril 40 Mg Tablet 40 Mg PO DAILY 01/30/21 Reported Famotidine 20 Mg Tablet 20 Mg PO BID 01/30/21 Reported Combivent Respimat Inhal (Ipratropium/Albuterol Sulfate) 4 Gm Aer.w.adap 1 Inh IH QID 01/30/21 Reported Biofreeze (Menthol) 118 Ml Gel..ml. 1 Keri TP QID 7 01/30/21 Reported Vitamin B-1 (Thiamine Mononitrate) 100 Mg Tablet 100 Mg PO DAILY 30 11/16/20 Rx Invega Sustenna (Paliperidone Palmitate) 117 Mg/0.75 Ml Disp.syrin 0 IM QMONTH 30 11/16/20 Rx Next dose 11/21/2020 Comments Chest x-ray reviewed 12/30/2021. Evidence of COPD. Volume loss in the left lower lobe suspect combination of pleural effusion and infiltrate Impression . 1. Acute on chronic hypercapnic respiratory failure secondary to acute exacerbation of chronic obstructive pulmonary disease. Patient had worsening hypoxia and hypercapnia on night of 12/30/2021. Patient intubated. Currently on assist control mode with improving ABGs. 2. Left lower lobe pneumonia. 3. Encephalopathy secondary to hypercapnia. 4. Severe hyponatremia. Needs to rule out any central nervous system pathology as well. 5. Suspected underlying severe chronic obstructive pulmonary disease. Plan . RECOMMENDATIONS: 1. Continue with present assist control mode. ABGs have improved. 2. Continue antibiotics. 3. IV Solu-Medrol. 4. Follow-up chest x-rays as needed. 5. Will likely discontinue sedation in the next 24 hours and assess for mental status. 6. We will need a CT head and a CT chest to further workup hyponatremia. 7. Discussed with RN. We will follow along with you. 8. Follow sodium. Improving levels. 9. DVT and stress ulcer prophylaxis. Discussed with RN and RT last evening as well as this morning. We will continue present aggressive care. Critical care time 35 minutes YANE AVILA MD Dec 31, 2021 10:17
--- NOTE | 2021-12-31 10:41 | PDOC ---
Renal-Progress Notes Subjective Notes Notes NOW History of Present Illness Hx of present illness NOW INTUBATED Vitals Vitals Vital Signs Date Time Temp Pulse Resp B/P (MAP) Pulse Ox O2 Delivery O2 Flow Rate FiO2 12/31/21 10:19 55 14 109/67 97 12/31/21 09:00 Ventilator 12/31/21 08:00 97.5 97.5 12/30/21 08:30 3.0 Weight Weight [ ] I.O. Intake and Output Intake and Output 12/31/21 07:00 Intake Total 742.63 ml Output Total 2510 ml Balance -1767.37 ml IV Total 742.63 ml Output Urine Total 2510 ml Labs Labs Laboratory Tests Test 12/30/21 12:30 12/30/21 13:01 12/30/21 16:57 12/30/21 20:12 O2 Saturation 95 % (92-99) 60 % (92-99) 99 % (92-99) Arterial Blood pH 7.18 (7.35-7.45) 7.30 (7.35-7.45) 7.51 (7.35-7.45) Arterial Blood pCO2 at Patient Temp 90 mmHg (35-46) 72 mmHg (35-46) 37 mmHg (35-46) Arterial Blood pO2 at Patient Temp 92 mmHg (75-108) 33 mmHg (75-108) 285 mmHg (75-108) Arterial Blood HCO3 33 mmol/L (21-28) 35 mmol/L (21-28) 28 mmol/L (21-28) Arterial Blood Base Excess 2 mmol/L (-3-3) 6 mmol/L (-3-3) 5 mmol/L (-3-3) FiO2 40% 17/06 r=24 30% bipap 100 Coronavirus (COVID-19)(PCR) Not detected (NOT DETECTD) Test 12/31/21 05:50 12/31/21 08:00 White Blood Count 11.4 x10^3/uL (4.0-11.0) Red Blood Count 3.54 x10^6/uL (4.30-5.70) Hemoglobin 10.1 g/dL (13.0-17.5) Hematocrit 31.3 % (39.0-53.0) Mean Corpuscular Volume 88 fL (79-100) Mean Corpuscular Hemoglobin 29 pg (25-35) Mean Corpuscular Hemoglobin Concent 32 g/dL (31-37) Red Cell Distribution Width 13.0 % (11.5-14.5) Platelet Count 304 x10^3/uL (140-400) Neutrophils (%) (Auto) 89 % (31-73) Lymphocytes (%) (Auto) 2 % (24-48) Monocytes (%) (Auto) 8 % (0-9) Eosinophils (%) (Auto) 0 % (0-3) Basophils (%) (Auto) 1 % (0-3) Neutrophils # (Auto) 10.2 x10^3/uL (1.8-7.7) Lymphocytes # (Auto) 0.2 x10^3/uL (1.0-4.8) Monocytes # (Auto) 0.9 x10^3/uL (0.0-1.1) Eosinophils # (Auto) 0.0 x10^3/uL (0.0-0.7) Basophils # (Auto) 0.1 x10^3/uL (0.0-0.2) Sodium Level 126 mmol/L (136-145) Potassium Level 4.5 mmol/L (3.5-5.1) Chloride Level 89 mmol/L (98-107) Carbon Dioxide Level 35 mmol/L (21-32) Anion Gap 2 (6-14) Blood Urea Nitrogen 9 mg/dL (8-26) Creatinine 0.4 mg/dL (0.7-1.3) Estimated GFR (Cockcroft-Gault) 221.7 Glucose Level 137 mg/dL (70-99) Uric Acid 1.6 mg/dL (3.5-7.2) Calcium Level 8.3 mg/dL (8.5-10.1) Phosphorus Level 3.5 mg/dL (2.6-4.7) Magnesium Level 2.0 mg/dL (1.8-2.4) O2 Saturation 96 % (92-99) Arterial Blood pH 7.41 (7.35-7.45) Arterial Blood pCO2 at Patient Temp 53 mmHg (35-46) Arterial Blood pO2 at Patient Temp 87 mmHg (75-108) Arterial Blood HCO3 33 mmol/L (21-28) Arterial Blood Base Excess 7 mmol/L (-3-3) FiO2 60% vent Review of Systems Constitutional: yes: unresponsive Physical Exam General Appearance: no apparent distress Respiratory: decreased breath sounds Heart: RRR Abdomen: soft, bowel sounds present Genitourinary: bladder flat Extremities: atrophy Neurology: other (SEDATED) Assessment Assessment IMP SEVERE HYPONATREMIA-PROB SIADH-NA IMPROVED TO 126 ACUTE ON CHRONIC HYPERCARBIC HYPOXIC RESP FAILURE LLL PNEUMONIA MET ENCEPHALOPATHY AECOPD PLAN CONT LOW FLOW SALINE VENT SUPPORT ANTIBIOTICS WILL FOLLOW . CHUY LONGO MD Dec 31, 2021 10:41
--- NOTE | 2021-12-31 11:00 | NUR ---
NKDAAllergies and reactions INR NA BUN 9 Cr 0.4 Platelets 304 Blood culture NOT done Order Verified YES Consent signed YES Previous PICC placement NO Past Medical/Surgical history and current diagnosis reviewed YES Patient Medical /Surgical History Related to PICC line placement Infectious Disease consult Special considerations for PICC line placement Anticoagulation therapy PICC placement indication Multiple/ Frequent blood draws, Poor peripheral intravenous access Marlen Elias RN name of PICC Nurse Addendum: 12/31/21 at 1139 by MARLEN ELIAS RN Amended: Links added.
--- NOTE | 2021-12-31 11:35 | NUR ---
Procedure: Following complete explanation of the PICC procedure including the indications, risks, and potential complications, informed consent was obtained. The possibility for infection was discussed along with signs, symptoms, and prevention. All the questions were answered by RN obtaining consent from family Written and verbal patient education was provided. YES Hand hygiene performed. YES Standardized central line checklist was utilized. YES The patient was placed in the supine position, the arm was prepped with chlorhexidine and patient draped with maximum sterile barrier. 3 mL 1% lidocaine was infiltrated into the skin to provide local anesthesia. A thorough assessment of RIGHT upper extremity completed. Using real-time ultrasound guidance and standardized micro puncture set, the BASILIC vein was punctured and a peel away sheath was placed using the modified Seldinger technique. A tip location device was used to ensure adequate catheter placement. The catheter was secured using a securement device and an antimicrobial patch was applied directly on the insertion site followed by a transparent dressing. All ports withdraw blood and flush without resistance. Patient tolerated the procedure without apparent complication(s). THREE Lumen Power PICC placement successful and uncomplicated. Placement verified by EKG tip confirmation system and/or chest x-ray. Tip located in the CAJ Complications: NONE GERARD Addendum: 12/31/21 at 1139 by ALON ELIAS RN Amended: Links added.
[2021-12-31] MEDS: IV NORMAL SALINE 1000ML BAG 1,000 ML IV SCH (11:37)
[2021-12-31] MEDS: MIDAZOLAM 100mg/100ml NS BAG 100 ML IV PRN (12:43)
--- NOTE | 2021-12-31 13:07 | RAD ---
Examination: CT chest without contrast HISTORY: History of hyponatremia, COPD, lung mass COMPARISON: 02/01/2021 TECHNIQUE: Axial CT images of chest were performed without contrast. Coronal and sagittal reformats a re performed. Exposure: One or more of the following individualized dose reduction techniques were utilized for thi s examination: 1. Automated exposure control 2. Adjustment of the mA and/or kV according to patient size 3. Use of iterative reconstruction technique. FINDINGS: The ET tube is identified in the trachea. Feeding tube is identified in the stomach. Moderate bilater al lung emphysematous changes. Focal groundglass airspace opacity measuring 1.1 cm right middle lobe of the lung. Moderate consolidation changes identified in the left lower lobe of the lung and right l ower lobe of the lung. Small bilateral pleural effusions. The visualized noncontrasted liver, spleen, adrenals grossly appears unremarkable. There is a 1.2 cm calcified density identified in the T10 lef t neural foramina could be osteophyte or calcified intervertebral disc. IMPRESSION: 1. Moderate consolidation changes identified in the left lower lobe of the lung and right lower lobe of the lung likely pneumonia or postobstructive atelectasis. Follow-up to resolution. 2. Focal groundglass airspace opacity measuring 1.1 cm identified in the right middle lobe of the alec ng could be atelectasis or infiltrate or neoplasm. Follow-up to resolution. 3. Small bilateral pleural effusions. 4. 1.2 cm calcified density identified at T10 left neural foramina could be osteophyte or calcified intervertebral disc. Recommend MRI thoracic spine for further evaluation. Electronically signed by: Navid Omer MD (12/31/2021 1:04 PM) [id number]
--- NOTE | 2021-12-31 13:18 | RAD ---
CT HEAD INDICATION: Hyponatremia, tumor COMPARISON: MR brain from 02/01/2021 Exposure: One or more of the following individualized dose reduction techniques were utilized for thi s examination: 1. Automated exposure control 2. Adjustment of the mA and/or kV according to patient size 3. Use of iterative reconstruction technique TECHNIQUE: 5 mm contiguous axial images were obtained from the skull base to the vertex in both bone and soft tissue algorithm. FINDINGS: Mild bilateral periventricular white matter hypodensities likely chronic small vessel ischemic diseas e. No evidence of acute intracranial hemorrhage. No extra-axial fluid collections. No mass effect or midline shift. Ventricular size is appropriate. Basal cisterns are patent. No fractures identified.Akins-white differentiation is preserved.Globes and orbits are within normal l imits. Paranasal sinuses and mastoid air cells are clear. IMPRESSION: No acute intracranial findings. Electronically signed by: Navid Omer MD (12/31/2021 1:15 PM) [id number]
--- NOTE | 2021-12-31 16:00 | NUR ---
SS following for discharge planning. SS reviewed pt chart and discussed with pt RN. Pt is LTC resident from [facility] in [place], ; fax [phone]. Pt is currently on the vent at 45%. COVID19 negative. Pt on Versed, Propofol, and Fentanyl. PICC in place. Pt on IV Solu-Medrol, IV Azithromycin, and IV Cefepime. Not ready. SS will continue to follow for discharge planning.
[2021-12-31] MEDS: CEFEPIME HCL IV Push 1 GM VIAL. IVP SCH ×2 (17:16→22:38)
--- NOTE | 2021-12-31 18:17 | PDOC ---
[employer] PROGRESS NOTE Date of Service DOS: DATE: 12/31/21 TIME: 18:16 Chief Complaint Chief Complaint Assessment/Plan Left-sided atypical pneumonia, possible gram-negative organisms Acute COPD exacerbation Severe hyponatremia Acute electrolyte derangement suggestive of volume depletion History of tobacco misuse History of COPD History of hypertension History of schizophrenia Admit to hospitalist service for further management Pulmonology consult for BiPAP management Nephrology consult for hyponatremia management Hypertonic saline Continue IV fluids IV steroids Empiric IV antibiotics Pending blood cultures Pending Legionella antigen of the urine and MRSA PCR screen Lovenox for DVT prophylaxis Protonix while on steroids GI prophylaxis ADA diet CODE STATUS full Discussed with RN and SW Disposition inpatient management as above DPOA: Father History of Present Illness History of Present Illness 12/31 Patient evaluated examined at bedside. Intubated sedated remains critically ill. Continue antibiotics. CT scan ordered for today. 41 minutes critical care time. Vitals/I&O Vitals/I&O: Vital Signs Date Time Temp Pulse Resp B/P (MAP) Pulse Ox O2 Delivery O2 Flow Rate FiO2 12/31/21 18:11 95 Ventilator 12/31/21 17:13 54 14 140/92 12/31/21 16:20 98.1 98.1 12/30/21 08:30 3.0 I & O 12/30/21 12/30/21 12/31/21 15:00 23:00 07:00 Intake Total 250 ml 492.63 ml Output Total 1860 ml 650 ml Balance -1610 ml -157.37 ml Physical Exam General: No acute distress Heart: Regular rate Lungs: Clear, Other (Decreased breath sounds at the bases.) Abdomen: Normal bowel sounds Extremities: No clubbing Skin: No breakdown Labs Labs: Laboratory Tests Test 12/30/21 20:12 12/31/21 05:50 12/31/21 08:00 O2 Saturation 99 % (92-99) 96 % (92-99) Arterial Blood pH 7.51 (7.35-7.45) 7.41 (7.35-7.45) Arterial Blood pCO2 at Patient Temp 37 mmHg (35-46) 53 mmHg (35-46) Arterial Blood pO2 at Patient Temp 285 mmHg (75-108) 87 mmHg (75-108) Arterial Blood HCO3 28 mmol/L (21-28) 33 mmol/L (21-28) Arterial Blood Base Excess 5 mmol/L (-3-3) 7 mmol/L (-3-3) FiO2 100 60% vent White Blood Count 11.4 x10^3/uL (4.0-11.0) Red Blood Count 3.54 x10^6/uL (4.30-5.70) Hemoglobin 10.1 g/dL (13.0-17.5) Hematocrit 31.3 % (39.0-53.0) Mean Corpuscular Volume 88 fL (79-100) Mean Corpuscular Hemoglobin 29 pg (25-35) Mean Corpuscular Hemoglobin Concent 32 g/dL (31-37) Red Cell Distribution Width 13.0 % (11.5-14.5) Platelet Count 304 x10^3/uL (140-400) Neutrophils (%) (Auto) 89 % (31-73) Lymphocytes (%) (Auto) 2 % (24-48) Monocytes (%) (Auto) 8 % (0-9) Eosinophils (%) (Auto) 0 % (0-3) Basophils (%) (Auto) 1 % (0-3) Neutrophils # (Auto) 10.2 x10^3/uL (1.8-7.7) Lymphocytes # (Auto) 0.2 x10^3/uL (1.0-4.8) Monocytes # (Auto) 0.9 x10^3/uL (0.0-1.1) Eosinophils # (Auto) 0.0 x10^3/uL (0.0-0.7) Basophils # (Auto) 0.1 x10^3/uL (0.0-0.2) Sodium Level 126 mmol/L (136-145) Potassium Level 4.5 mmol/L (3.5-5.1) Chloride Level 89 mmol/L (98-107) Carbon Dioxide Level 35 mmol/L (21-32) Anion Gap 2 (6-14) Blood Urea Nitrogen 9 mg/dL (8-26) Creatinine 0.4 mg/dL (0.7-1.3) Estimated GFR (Cockcroft-Gault) 221.7 Glucose Level 137 mg/dL (70-99) Uric Acid 1.6 mg/dL (3.5-7.2) Calcium Level 8.3 mg/dL (8.5-10.1) Phosphorus Level 3.5 mg/dL (2.6-4.7) Magnesium Level 2.0 mg/dL (1.8-2.4) Assessment and Plan Assessmemt and Plan Problems Medical Problems: (1) COPD exacerbation Status: Acute Comment Review of Relevant I have reviewed the following items kye (where applicable) has been applied. Medications: Current Medications Medications (Trade) Dose Ordered Sig/Jean Carlos Route PRN Reason Start Time Stop Time Status Last Admin Dose Admin Lactobacillus Rhamnosus (Culturelle) 1 cap BID PO 12/30/21 21:00 12/31/21 08:22 DC 12/30/21 21:19 Succinylcholine Chloride (Anectine) 200 mg 1X ONCE IV 12/30/21 18:45 12/30/21 18:46 DC 12/30/21 18:33 Cefepime HCl (Maxipime) 1 gm Q8HRS IVP 12/31/21 17:30 12/31/21 17:16 Justifications for Admission Other Justification COPD exacerbation, hyponatremia JUAN RAMOS MD Dec 31, 2021 18:17
[2021-12-31] MEDS: AZITHROMYCIN 500 MG in IV NORMAL SALINE 250ML 250 ML IV SCH (21:14)
[2021-12-31] MEDS: FAMOTIDINE 20 MG/2 ML VIAL IVP SCH (21:38)
[2021-12-31] MEDS: ENOXAPARIN 40 MG/0.4 ML SYRINGE. SQ SCH (21:39)
[2021-12-31 23:08] LABS: UR POTASSIUM 38.4 mmol/L (Not Estab.)
[2022-01-01] VITALS (24 sets, daily range): BP systolic 94–174; BP diastolic 60–111
[2022-01-01] MEDS: IV NORMAL SALINE 1000ML BAG 1,000 ML IV SCH ×2 (04:14→21:33)
[2022-01-01] MEDS: PROPOFOL 100 ML IV PRN ×2 (04:15→17:36)
[2022-01-01] MEDS: CEFEPIME HCL IV Push 1 GM VIAL. IVP SCH ×3 (06:02→21:42)
[2022-01-01] MEDS: methylPREDNISolone SOD SUCC PF 40 MG/ML VIAL. IV SCH ×3 (06:03→18:24)
[2022-01-01 06:55] LABS: BASO % 0 % (0-3); EOS % 0 % (0-3); HEMATOCRIT 29.4 % (39.0-53.0); HEMOGLOBIN 9.7 g/dL (13.0-17.5); LYMPH # 0.2 x10^3/uL (1.0-4.8); LYMPH % 2 % (24-48); MEAN CORPUSCULAR HEMOGLOBIN 29 pg (25-35); MEAN CORPUSCULAR HGB CONC 33 g/dL (31-37); MEAN CORPUSCULAR VOLUME 88 fL (79-100); MONO # 1.1 x10^3/uL (0.0-1.1); MONO % 12 % (0-9); NEUT # 7.4 x10^3/uL (1.8-7.7); NEUT % 85 % (31-73); PLATELET COUNT 314 x10^3/uL (140-400); RED BLOOD COUNT 3.33 x10^6/uL (4.30-5.70); RED CELL DISTRIBUTION WIDTH 13.4 % (11.5-14.5); WHITE BLOOD COUNT 8.6 x10^3/uL (4.0-11.0)
[2022-01-01 07:18] LABS: CALCIUM 8.2 mg/dL (8.5-10.1); CREATININE 0.4 mg/dL (0.7-1.3); GFR 221.7; MAGNESIUM 1.8 mg/dL (1.8-2.4); PHOSPHORUS 3.4 mg/dL (2.6-4.7); POTASSIUM 4.6 mmol/L (3.5-5.1)
[2022-01-01 09:06] LABS: BASE EXCESS ABG 5 mmol/L (-3-3); HCO3 ABG 30 mmol/L (21-28); PCO2 ABG 47 mmHg (35-46); PO2 ABG 81 mmHg (75-108); SAT O2 ABG 95 % (92-99)
[2022-01-01 09:09] LABS: FIO2 ABG 40
--- NOTE | 2022-01-01 10:26 | PDOC ---
[employer] PROGRESS NOTE Date of Service DOS: DATE: 01/01/22 TIME: 10:23 Chief Complaint Chief Complaint Assessment/Plan Left-sided atypical pneumonia, possible gram-negative organisms Acute COPD exacerbation Severe hyponatremia Acute electrolyte derangement suggestive of volume depletion History of tobacco misuse History of COPD History of hypertension History of schizophrenia Admit to hospitalist service for further management Pulmonology consult for BiPAP management Nephrology consult for hyponatremia management Hypertonic saline Continue IV fluids IV steroids Empiric IV antibiotics Pending blood cultures Pending Legionella antigen of the urine and MRSA PCR screen Lovenox for DVT prophylaxis Protonix while on steroids GI prophylaxis ADA diet CODE STATUS full Discussed with RN and SW Disposition inpatient management as above DPOA: Father History of Present Illness History of Present Illness 01/01 Patient evaluated examined at bedside. Intubated sedated. Remains critically ill. CT head from yesterday unremarkable. Hyponatremia improving. CT chest showing lung consolidations. Continue cefepime azithromycin. Possible try to wean sedation and see how mental status does. 35 minutes critical care time 12/31 Patient evaluated examined at bedside. Intubated sedated remains critically ill. Continue antibiotics. CT scan ordered for today. 41 minutes critical care time. Vitals/I&O Vitals/I&O: Vital Signs Date Time Temp Pulse Resp B/P (MAP) Pulse Ox O2 Delivery O2 Flow Rate FiO2 01/01/22 08:15 94 Ventilator 01/01/22 06:00 66 14 104/68 01/01/22 04:00 98.5 98.5 I & O 12/31/21 12/31/21 01/01/22 15:00 23:00 07:00 Intake Total 976 ml 1053.49 ml Output Total 375 ml 570 ml 485 ml Balance -375 ml 406 ml 568.49 ml Physical Exam General: No acute distress Heart: Regular rate Lungs: Clear, Other (Decreased breath sounds at the bases.) Abdomen: Normal bowel sounds Extremities: No clubbing Skin: No breakdown Labs Labs: Laboratory Tests Test 01/01/22 00:04 01/01/22 06:00 01/01/22 09:00 Glucose (Fingerstick) 140 mg/dL (70-99) White Blood Count 8.6 x10^3/uL (4.0-11.0) Red Blood Count 3.33 x10^6/uL (4.30-5.70) Hemoglobin 9.7 g/dL (13.0-17.5) Hematocrit 29.4 % (39.0-53.0) Mean Corpuscular Volume 88 fL (79-100) Mean Corpuscular Hemoglobin 29 pg (25-35) Mean Corpuscular Hemoglobin Concent 33 g/dL (31-37) Red Cell Distribution Width 13.4 % (11.5-14.5) Platelet Count 314 x10^3/uL (140-400) Neutrophils (%) (Auto) 85 % (31-73) Lymphocytes (%) (Auto) 2 % (24-48) Monocytes (%) (Auto) 12 % (0-9) Eosinophils (%) (Auto) 0 % (0-3) Basophils (%) (Auto) 0 % (0-3) Neutrophils # (Auto) 7.4 x10^3/uL (1.8-7.7) Lymphocytes # (Auto) 0.2 x10^3/uL (1.0-4.8) Monocytes # (Auto) 1.1 x10^3/uL (0.0-1.1) Eosinophils # (Auto) 0.0 x10^3/uL (0.0-0.7) Basophils # (Auto) 0.0 x10^3/uL (0.0-0.2) Sodium Level 129 mmol/L (136-145) Potassium Level 4.6 mmol/L (3.5-5.1) Chloride Level 93 mmol/L (98-107) Carbon Dioxide Level 32 mmol/L (21-32) Anion Gap 4 (6-14) Blood Urea Nitrogen 13 mg/dL (8-26) Creatinine 0.4 mg/dL (0.7-1.3) Estimated GFR (Cockcroft-Gault) 221.7 Glucose Level 129 mg/dL (70-99) Calcium Level 8.2 mg/dL (8.5-10.1) Phosphorus Level 3.4 mg/dL (2.6-4.7) Magnesium Level 1.8 mg/dL (1.8-2.4) O2 Saturation 95 % (92-99) Arterial Blood pH 7.42 (7.35-7.45) Arterial Blood pCO2 at Patient Temp 47 mmHg (35-46) Arterial Blood pO2 at Patient Temp 81 mmHg (75-108) Arterial Blood HCO3 30 mmol/L (21-28) Arterial Blood Base Excess 5 mmol/L (-3-3) FiO2 40 Assessment and Plan Assessmemt and Plan Problems Medical Problems: (1) COPD exacerbation Status: Acute Comment Review of Relevant I have reviewed the following items kye (where applicable) has been applied. Medications: Current Medications Medications (Trade) Dose Ordered Sig/Jean Carlos Route PRN Reason Start Time Stop Time Status Last Admin Dose Admin Famotidine (Pepcid Vial) 20 mg QHS IVP 12/31/21 21:00 12/31/21 21:38 Cefepime HCl (Maxipime) 1 gm Q8HRS IVP 12/31/21 17:30 01/01/22 06:02 Justifications for Admission Other Justification COPD exacerbation, hyponatremia JUAN RAMOS MD Jan 01, 2022 10:26
--- NOTE | 2022-01-01 10:40 | PDOC ---
Renal-Progress Notes Subjective Notes Notes ON THE VENT History of Present Illness Hx of present illness STABLE Vitals Vitals Vital Signs Date Time Temp Pulse Resp B/P (MAP) Pulse Ox O2 Delivery O2 Flow Rate FiO2 01/01/22 08:15 94 Ventilator 01/01/22 06:00 66 14 104/68 01/01/22 04:00 98.5 98.5 Weight Weight [ ] I.O. Intake and Output Intake and Output 01/01/22 07:00 Intake Total 2029.49 ml Output Total 1430 ml Balance 599.49 ml IV Total 1823.49 ml Tube Feeding 106 ml Other 100 ml Output Urine Total 1430 ml Labs Labs Laboratory Tests Test 01/01/22 00:04 01/01/22 06:00 01/01/22 09:00 Glucose (Fingerstick) 140 mg/dL (70-99) White Blood Count 8.6 x10^3/uL (4.0-11.0) Red Blood Count 3.33 x10^6/uL (4.30-5.70) Hemoglobin 9.7 g/dL (13.0-17.5) Hematocrit 29.4 % (39.0-53.0) Mean Corpuscular Volume 88 fL (79-100) Mean Corpuscular Hemoglobin 29 pg (25-35) Mean Corpuscular Hemoglobin Concent 33 g/dL (31-37) Red Cell Distribution Width 13.4 % (11.5-14.5) Platelet Count 314 x10^3/uL (140-400) Neutrophils (%) (Auto) 85 % (31-73) Lymphocytes (%) (Auto) 2 % (24-48) Monocytes (%) (Auto) 12 % (0-9) Eosinophils (%) (Auto) 0 % (0-3) Basophils (%) (Auto) 0 % (0-3) Neutrophils # (Auto) 7.4 x10^3/uL (1.8-7.7) Lymphocytes # (Auto) 0.2 x10^3/uL (1.0-4.8) Monocytes # (Auto) 1.1 x10^3/uL (0.0-1.1) Eosinophils # (Auto) 0.0 x10^3/uL (0.0-0.7) Basophils # (Auto) 0.0 x10^3/uL (0.0-0.2) Sodium Level 129 mmol/L (136-145) Potassium Level 4.6 mmol/L (3.5-5.1) Chloride Level 93 mmol/L (98-107) Carbon Dioxide Level 32 mmol/L (21-32) Anion Gap 4 (6-14) Blood Urea Nitrogen 13 mg/dL (8-26) Creatinine 0.4 mg/dL (0.7-1.3) Estimated GFR (Cockcroft-Gault) 221.7 Glucose Level 129 mg/dL (70-99) Calcium Level 8.2 mg/dL (8.5-10.1) Phosphorus Level 3.4 mg/dL (2.6-4.7) Magnesium Level 1.8 mg/dL (1.8-2.4) O2 Saturation 95 % (92-99) Arterial Blood pH 7.42 (7.35-7.45) Arterial Blood pCO2 at Patient Temp 47 mmHg (35-46) Arterial Blood pO2 at Patient Temp 81 mmHg (75-108) Arterial Blood HCO3 30 mmol/L (21-28) Arterial Blood Base Excess 5 mmol/L (-3-3) FiO2 40 Review of Systems Constitutional: yes: unresponsive Physical Exam General Appearance: no apparent distress Respiratory: decreased breath sounds Heart: RRR Abdomen: soft, bowel sounds present Genitourinary: bladder flat Extremities: atrophy Neurology: other (SEDATED) Assessment Assessment IMP SEVERE HYPONATREMIA-PROB SIADH-NA IMPROVED TO 129 ACUTE ON CHRONIC HYPERCARBIC HYPOXIC RESP FAILURE LLL PNEUMONIA MET ENCEPHALOPATHY AECOPD PLAN CONT LOW FLOW SALINE CONT TF AND WATER FLUSHES VENT SUPPORT ANTIBIOTICS WILL FOLLOW . CHUY LONGO MD Jan 01, 2022 10:40
--- NOTE | 2022-01-01 10:48 | PDOC ---
PULMONARY PROGRESS NOTES DATE: 01/01/22 TIME: 10:45 Subjective Patient remains on assist control mode. Oxygenation and ventilation status has improved on assist control mode. Vitals Vital Signs Date Time Temp Pulse Resp B/P (MAP) Pulse Ox O2 Delivery O2 Flow Rate FiO2 01/01/22 08:15 94 Ventilator 01/01/22 06:00 66 14 104/68 01/01/22 04:00 98.5 98.5 Comments Remains intubated and sedated. On assist control mode HEENT: Other Lungs: Clear, Other (Decreased breath sounds at the bases.) Cardiovascular: S1, S2 Abdomen: Soft, Non-tender, Other Extremities: No Edema Labs Laboratory Tests Test 12/30/21 12:30 12/30/21 13:01 12/30/21 15:00 12/30/21 16:57 O2 Saturation 95 % (92-99) 60 % (92-99) Arterial Blood pH 7.18 (7.35-7.45) 7.30 (7.35-7.45) Arterial Blood pCO2 at Patient Temp 90 mmHg (35-46) 72 mmHg (35-46) Arterial Blood pO2 at Patient Temp 92 mmHg (75-108) 33 mmHg (75-108) Arterial Blood HCO3 33 mmol/L (21-28) 35 mmol/L (21-28) Arterial Blood Base Excess 2 mmol/L (-3-3) 6 mmol/L (-3-3) FiO2 40% 17/06 r=24 30% bipap Nasal Screen MRSA (PCR) Positive (NEGATIVE) Coronavirus (COVID-19)(PCR) Not detected (NOT DETECTD) Urine Random Sodium 36 mmol/L (Not Estab.) Urine Sodium 35 mmol/L (Not Estab.) Urine Potassium 38.4 mmol/L (Not Estab.) Urine Chloride 48 mmol/L (Not Estab.) Test 12/30/21 20:12 12/31/21 05:50 12/31/21 08:00 01/01/22 00:04 O2 Saturation 99 % (92-99) 96 % (92-99) Arterial Blood pH 7.51 (7.35-7.45) 7.41 (7.35-7.45) Arterial Blood pCO2 at Patient Temp 37 mmHg (35-46) 53 mmHg (35-46) Arterial Blood pO2 at Patient Temp 285 mmHg (75-108) 87 mmHg (75-108) Arterial Blood HCO3 28 mmol/L (21-28) 33 mmol/L (21-28) Arterial Blood Base Excess 5 mmol/L (-3-3) 7 mmol/L (-3-3) FiO2 100 60% vent White Blood Count 11.4 x10^3/uL (4.0-11.0) Red Blood Count 3.54 x10^6/uL (4.30-5.70) Hemoglobin 10.1 g/dL (13.0-17.5) Hematocrit 31.3 % (39.0-53.0) Mean Corpuscular Volume 88 fL (79-100) Mean Corpuscular Hemoglobin 29 pg (25-35) Mean Corpuscular Hemoglobin Concent 32 g/dL (31-37) Red Cell Distribution Width 13.0 % (11.5-14.5) Platelet Count 304 x10^3/uL (140-400) Neutrophils (%) (Auto) 89 % (31-73) Lymphocytes (%) (Auto) 2 % (24-48) Monocytes (%) (Auto) 8 % (0-9) Eosinophils (%) (Auto) 0 % (0-3) Basophils (%) (Auto) 1 % (0-3) Neutrophils # (Auto) 10.2 x10^3/uL (1.8-7.7) Lymphocytes # (Auto) 0.2 x10^3/uL (1.0-4.8) Monocytes # (Auto) 0.9 x10^3/uL (0.0-1.1) Eosinophils # (Auto) 0.0 x10^3/uL (0.0-0.7) Basophils # (Auto) 0.1 x10^3/uL (0.0-0.2) Sodium Level 126 mmol/L (136-145) Potassium Level 4.5 mmol/L (3.5-5.1) Chloride Level 89 mmol/L (98-107) Carbon Dioxide Level 35 mmol/L (21-32) Anion Gap 2 (6-14) Blood Urea Nitrogen 9 mg/dL (8-26) Creatinine 0.4 mg/dL (0.7-1.3) Estimated GFR (Cockcroft-Gault) 221.7 Glucose Level 137 mg/dL (70-99) Uric Acid 1.6 mg/dL (3.5-7.2) Calcium Level 8.3 mg/dL (8.5-10.1) Phosphorus Level 3.5 mg/dL (2.6-4.7) Magnesium Level 2.0 mg/dL (1.8-2.4) Glucose (Fingerstick) 140 mg/dL (70-99) Test 01/01/22 06:00 01/01/22 09:00 White Blood Count 8.6 x10^3/uL (4.0-11.0) Red Blood Count 3.33 x10^6/uL (4.30-5.70) Hemoglobin 9.7 g/dL (13.0-17.5) Hematocrit 29.4 % (39.0-53.0) Mean Corpuscular Volume 88 fL (79-100) Mean Corpuscular Hemoglobin 29 pg (25-35) Mean Corpuscular Hemoglobin Concent 33 g/dL (31-37) Red Cell Distribution Width 13.4 % (11.5-14.5) Platelet Count 314 x10^3/uL (140-400) Neutrophils (%) (Auto) 85 % (31-73) Lymphocytes (%) (Auto) 2 % (24-48) Monocytes (%) (Auto) 12 % (0-9) Eosinophils (%) (Auto) 0 % (0-3) Basophils (%) (Auto) 0 % (0-3) Neutrophils # (Auto) 7.4 x10^3/uL (1.8-7.7) Lymphocytes # (Auto) 0.2 x10^3/uL (1.0-4.8) Monocytes # (Auto) 1.1 x10^3/uL (0.0-1.1) Eosinophils # (Auto) 0.0 x10^3/uL (0.0-0.7) Basophils # (Auto) 0.0 x10^3/uL (0.0-0.2) Sodium Level 129 mmol/L (136-145) Potassium Level 4.6 mmol/L (3.5-5.1) Chloride Level 93 mmol/L (98-107) Carbon Dioxide Level 32 mmol/L (21-32) Anion Gap 4 (6-14) Blood Urea Nitrogen 13 mg/dL (8-26) Creatinine 0.4 mg/dL (0.7-1.3) Estimated GFR (Cockcroft-Gault) 221.7 Glucose Level 129 mg/dL (70-99) Calcium Level 8.2 mg/dL (8.5-10.1) Phosphorus Level 3.4 mg/dL (2.6-4.7) Magnesium Level 1.8 mg/dL (1.8-2.4) O2 Saturation 95 % (92-99) Arterial Blood pH 7.42 (7.35-7.45) Arterial Blood pCO2 at Patient Temp 47 mmHg (35-46) Arterial Blood pO2 at Patient Temp 81 mmHg (75-108) Arterial Blood HCO3 30 mmol/L (21-28) Arterial Blood Base Excess 5 mmol/L (-3-3) FiO2 40 Laboratory Tests Test 01/01/22 00:04 01/01/22 06:00 01/01/22 09:00 Glucose (Fingerstick) 140 mg/dL (70-99) White Blood Count 8.6 x10^3/uL (4.0-11.0) Red Blood Count 3.33 x10^6/uL (4.30-5.70) Hemoglobin 9.7 g/dL (13.0-17.5) Hematocrit 29.4 % (39.0-53.0) Mean Corpuscular Volume 88 fL (79-100) Mean Corpuscular Hemoglobin 29 pg (25-35) Mean Corpuscular Hemoglobin Concent 33 g/dL (31-37) Red Cell Distribution Width 13.4 % (11.5-14.5) Platelet Count 314 x10^3/uL (140-400) Neutrophils (%) (Auto) 85 % (31-73) Lymphocytes (%) (Auto) 2 % (24-48) Monocytes (%) (Auto) 12 % (0-9) Eosinophils (%) (Auto) 0 % (0-3) Basophils (%) (Auto) 0 % (0-3) Neutrophils # (Auto) 7.4 x10^3/uL (1.8-7.7) Lymphocytes # (Auto) 0.2 x10^3/uL (1.0-4.8) Monocytes # (Auto) 1.1 x10^3/uL (0.0-1.1) Eosinophils # (Auto) 0.0 x10^3/uL (0.0-0.7) Basophils # (Auto) 0.0 x10^3/uL (0.0-0.2) Sodium Level 129 mmol/L (136-145) Potassium Level 4.6 mmol/L (3.5-5.1) Chloride Level 93 mmol/L (98-107) Carbon Dioxide Level 32 mmol/L (21-32) Anion Gap 4 (6-14) Blood Urea Nitrogen 13 mg/dL (8-26) Creatinine 0.4 mg/dL (0.7-1.3) Estimated GFR (Cockcroft-Gault) 221.7 Glucose Level 129 mg/dL (70-99) Calcium Level 8.2 mg/dL (8.5-10.1) Phosphorus Level 3.4 mg/dL (2.6-4.7) Magnesium Level 1.8 mg/dL (1.8-2.4) O2 Saturation 95 % (92-99) Arterial Blood pH 7.42 (7.35-7.45) Arterial Blood pCO2 at Patient Temp 47 mmHg (35-46) Arterial Blood pO2 at Patient Temp 81 mmHg (75-108) Arterial Blood HCO3 30 mmol/L (21-28) Arterial Blood Base Excess 5 mmol/L (-3-3) FiO2 40 Medications Active Scripts Medications Dose Route/Sig Max Daily Dose Days Date Category Dose Instructions Amlodipine Besylate 10 Mg Tablet 10 Mg PO DAILY 12/30/21 Reported Metoprolol Succinate ( Xl ) (Metoprolol Succinate) 25 Mg Tab.er.24h 12.5 Mg PO DAILY 30 02/02/21 Rx Atorvastatin Calcium 40 Mg Tablet 80 Mg PO QHS 30 02/02/21 Rx Proair Hfa (Albuterol Sulfate) 8.5 Gm Hfa.aer.ad 2.5 Mg NEB PRN Q4HRS PRN 30 02/02/21 Rx Multi Vitamin Daily (Multivitamin) 1 Each Tablet 1 Tab PO DAILY 30 01/30/21 Reported Lisinopril 40 Mg Tablet 40 Mg PO DAILY 01/30/21 Reported Famotidine 20 Mg Tablet 20 Mg PO BID 01/30/21 Reported Combivent Respimat Inhal (Ipratropium/Albuterol Sulfate) 4 Gm Aer.w.adap 1 Inh IH QID 01/30/21 Reported Biofreeze (Menthol) 118 Ml Gel..ml. 1 Keri TP QID 7 01/30/21 Reported Vitamin B-1 (Thiamine Mononitrate) 100 Mg Tablet 100 Mg PO DAILY 30 11/16/20 Rx Invega Sustenna (Paliperidone Palmitate) 117 Mg/0.75 Ml Disp.syrin 0 IM QMONTH 30 11/16/20 Rx Next dose 11/21/[address] chest reviewed dated 12/31/2021. Bibasilar consolidation. No definite mass seen. CT head with no intracranial abnormalities. Chest x-ray reviewed 12/30/2021. Evidence of COPD. Volume loss in the left lower lobe suspect combination of pleural effusion and infiltrate Impression . 1. Acute on chronic hypercapnic respiratory failure secondary to acute exacerbation of chronic obstructive pulmonary disease. Patient had worsening hypoxia and hypercapnia on night of 12/30/2021. Patient intubated. Currently on assist control mode with improving ABGs. 2. Left lower lobe pneumonia. 3. Encephalopathy secondary to hypercapnia. 4. Severe hyponatremia. Needs to rule out any central nervous system pathology as well. 5. Suspected underlying severe chronic obstructive pulmonary disease. 6. Abnormal CT chest with bibasilar consolidation/atelectasis.. No definite mass seen. Plan . Updated 01/01/2022. 1. We will discontinue sedation. Once awake, will start CPAP trial. 2. Continue antibiotics. 3. IV Solu-Medrol. 4. Follow-up chest x-rays as needed. 5. Clinically improved. Once off sedation will assess baseline mental status. Patient has underlying schizophrenia. 6. CT head and CT chest without any evidence of malignancy. 7. Discussed with RN. We will follow along with you. 8. Follow sodium. Improving levels. 9. DVT and stress ulcer prophylaxis. Discussed with RN and RT RECOMMENDATIONS: 1. Continue with present assist control mode. ABGs have improved. 2. Continue antibiotics. 3. IV Solu-Medrol. 4. Follow-up chest x-rays as needed. 5. Will likely discontinue sedation in the next 24 hours and assess for mental status. 6. We will need a CT head and a CT chest to further workup hyponatremia. 7. Discussed with RN. We will follow along with you. 8. Follow sodium. Improving levels. 9. DVT and stress ulcer prophylaxis. Discussed with RN and RT last evening as well as this morning. We will continue present aggressive care. Critical care time 35 minutes YANE VAILA MD Jan 01, 2022 10:48
[2022-01-01] MEDS: DEXMEDETOMIDINE 400 MCG in IV NORMAL SALINE 100ML 96 ML IV PRN ×3 (11:08→20:10)
[2022-01-01 12:13] LABS: URINE OSMOLALITY 434 mOsmol/kg (.)
[2022-01-01 13:31] LABS: BASE EXCESS ABG 5 mmol/L (-3-3); HCO3 ABG 31 mmol/L (21-28); PCO2 ABG 49 mmHg (35-46); PO2 ABG 80 mmHg (75-108); SAT O2 ABG 95 % (92-99)
[2022-01-01 13:35] LABS: FIO2 ABG cpap trial 40%
--- NOTE | 2022-01-01 14:37 | NUR ---
pt versed turned off at shift change this morning, pt propofol turned off around 1100 as well as fentanyl. pt placed on cpap trial at 1210 by RT. pressure support 16/5 40%. pt blood gas drawn at 1323, results called to dr ceballos, he stated to leave pt on pressure support today as long as pt tolerates and switch back to a/c mode this evening, avoid sedation except for precedex.
--- NOTE | 2022-01-01 15:38 | NUR ---
SS following up with discharge planning. SS reviewed pt chart and discussed with pt RN. Pt is LTC resident from [facility] in [place], ; fax [phone]. Pt is currently on CPAP trial at 40%. COVID19 negative. Pt on Precedex. Pt on IV Solu-Medrol, IV Azithromycin, and IV Cefepime. Not ready. SS will continue to follow for discharge planning.
--- NOTE | 2022-01-01 18:34 | NUR ---
At 1700 patient intubated requiring rapid titration of precedex and propofol d/t non-compliance with ventilator. Starting rate at precedex (0.4) propofol (0) and patient stabilized at precedex (1.0) propofol (30) with a RASS score of -3. gtt currently infusing at stablilized rate. Max rate during this time was CURRENT RATE of medication administered during charting block and ended at 1700 Addendum: 01/01/22 at 1845 by JOSH SEO RN ended at 1830 Addendum: 01/02/22 at 1651 by JOSH SEO RN pt was not intubated, pt already intubated and on cpap trial and sedation vacation, pt was agitated and therefore sedation increased rapidly to get back in compliance with vent
[2022-01-01] MEDS: ENOXAPARIN 40 MG/0.4 ML SYRINGE. SQ SCH (21:36)
[2022-01-01] MEDS: AZITHROMYCIN 500 MG in IV NORMAL SALINE 250ML 250 ML IV SCH (21:38)
[2022-01-01] MEDS: FAMOTIDINE 20 MG/2 ML VIAL IVP SCH (21:41)
[2022-01-02] VITALS (24 sets, daily range): BP systolic 132–187; BP diastolic 9–115
[2022-01-02] MEDS: DEXMEDETOMIDINE 400 MCG in IV NORMAL SALINE 100ML 96 ML IV PRN ×6 (00:03→21:35)
[2022-01-02] MEDS: PROPOFOL 100 ML IV PRN ×4 (00:06→21:34)
[2022-01-02] MEDS: methylPREDNISolone SOD SUCC PF 40 MG/ML VIAL. IV SCH ×3 (00:07→13:19)
[2022-01-02 05:53] LABS: CALCIUM 8.2 mg/dL (8.5-10.1); CREATININE 0.5 mg/dL (0.7-1.3); GFR 171.4; POTASSIUM 3.9 mmol/L (3.5-5.1)
[2022-01-02] MEDS: CEFEPIME HCL IV Push 1 GM VIAL. IVP SCH ×3 (06:02→21:33)
[2022-01-02 09:35] LABS: BASE EXCESS ABG 3 mmol/L (-3-3); HCO3 ABG 31 mmol/L (21-28); PO2 ABG 76 mmHg (75-108); SAT O2 ABG 93 % (92-99)
[2022-01-02 09:37] LABS: FIO2 ABG 40; PCO2 ABG 60 mmHg (35-46)
[2022-01-02] MEDS ORDERED: hydrALAZINE 20 MG/ML VIAL. IVP PRN (10:15)
--- NOTE | 2022-01-02 10:21 | PDOC ---
Renal-Progress Notes Subjective Notes Notes REMAINS ON THE VENT History of Present Illness Hx of present illness STABLE Vitals Vitals Vital Signs Date Time Temp Pulse Resp B/P (MAP) Pulse Ox O2 Delivery O2 Flow Rate FiO2 01/02/22 09:00 86 29 146/101 93 Ventilator 01/02/22 08:00 98.1 98.1 Weight Weight [ ] I.O. Intake and Output Intake and Output 01/02/22 07:00 Intake Total 3740.5 ml Output Total 4265 ml Balance -524.5 ml IV Total 2400.5 ml Tube Feeding 935 ml Other 405 ml Output Urine Total 4265 ml Labs Labs Laboratory Tests Test 01/01/22 13:19 01/02/22 05:30 01/02/22 09:30 O2 Saturation 95 % (92-99) 93 % (92-99) Arterial Blood pH 7.41 (7.35-7.45) 7.33 (7.35-7.45) Arterial Blood pCO2 at Patient Temp 49 mmHg (35-46) 60 mmHg (35-46) Arterial Blood pO2 at Patient Temp 80 mmHg (75-108) 76 mmHg (75-108) Arterial Blood HCO3 31 mmol/L (21-28) 31 mmol/L (21-28) Arterial Blood Base Excess 5 mmol/L (-3-3) 3 mmol/L (-3-3) FiO2 cpap trial 40% 40 Sodium Level 132 mmol/L (136-145) Potassium Level 3.9 mmol/L (3.5-5.1) Chloride Level 94 mmol/L (98-107) Carbon Dioxide Level 33 mmol/L (21-32) Anion Gap 5 (6-14) Blood Urea Nitrogen 11 mg/dL (8-26) Creatinine 0.5 mg/dL (0.7-1.3) Estimated GFR (Cockcroft-Gault) 171.4 Glucose Level 149 mg/dL (70-99) Calcium Level 8.2 mg/dL (8.5-10.1) Review of Systems Constitutional: yes: unresponsive Physical Exam General Appearance: no apparent distress Respiratory: decreased breath sounds Heart: RRR Abdomen: soft, bowel sounds present Genitourinary: bladder flat Extremities: atrophy Neurology: other (SEDATED) Assessment Assessment IMP SEVERE HYPONATREMIA-PROB SIADH-NA IMPROVED TO 132 ACUTE ON CHRONIC HYPERCARBIC HYPOXIC RESP FAILURE LLL PNEUMONIA MET ENCEPHALOPATHY AECOPD PLAN CONT LOW FLOW SALINE CONT TF VENT SUPPORT ANTIBIOTICS WILL FOLLOW . CHUY LONGO MD Jan 02, 2022 10:21
--- NOTE | 2022-01-02 10:38 | PDOC ---
PULMONARY PROGRESS NOTES DATE: 01/02/22 TIME: 10:35 Subjective Patient remains on vent support, currently on CPAP trial Remains on Precedex, afebrile, no overnight concerns from nursing Vitals Vital Signs Date Time Temp Pulse Resp B/P (MAP) Pulse Ox O2 Delivery O2 Flow Rate FiO2 01/02/22 09:00 86 29 146/101 93 Ventilator 01/02/22 08:00 98.1 98.1 Comments Remains intubated and sedated. General: Alert HEENT: Other Lungs: Clear, Other (Decreased breath sounds at the bases.) Cardiovascular: S1, S2 Abdomen: Soft, Non-tender, Other Extremities: No Edema Labs Laboratory Tests Test 01/01/22 00:04 01/01/22 06:00 01/01/22 09:00 01/01/22 13:19 Glucose (Fingerstick) 140 mg/dL (70-99) White Blood Count 8.6 x10^3/uL (4.0-11.0) Red Blood Count 3.33 x10^6/uL (4.30-5.70) Hemoglobin 9.7 g/dL (13.0-17.5) Hematocrit 29.4 % (39.0-53.0) Mean Corpuscular Volume 88 fL (79-100) Mean Corpuscular Hemoglobin 29 pg (25-35) Mean Corpuscular Hemoglobin Concent 33 g/dL (31-37) Red Cell Distribution Width 13.4 % (11.5-14.5) Platelet Count 314 x10^3/uL (140-400) Neutrophils (%) (Auto) 85 % (31-73) Lymphocytes (%) (Auto) 2 % (24-48) Monocytes (%) (Auto) 12 % (0-9) Eosinophils (%) (Auto) 0 % (0-3) Basophils (%) (Auto) 0 % (0-3) Neutrophils # (Auto) 7.4 x10^3/uL (1.8-7.7) Lymphocytes # (Auto) 0.2 x10^3/uL (1.0-4.8) Monocytes # (Auto) 1.1 x10^3/uL (0.0-1.1) Eosinophils # (Auto) 0.0 x10^3/uL (0.0-0.7) Basophils # (Auto) 0.0 x10^3/uL (0.0-0.2) Sodium Level 129 mmol/L (136-145) Potassium Level 4.6 mmol/L (3.5-5.1) Chloride Level 93 mmol/L (98-107) Carbon Dioxide Level 32 mmol/L (21-32) Anion Gap 4 (6-14) Blood Urea Nitrogen 13 mg/dL (8-26) Creatinine 0.4 mg/dL (0.7-1.3) Estimated GFR (Cockcroft-Gault) 221.7 Glucose Level 129 mg/dL (70-99) Calcium Level 8.2 mg/dL (8.5-10.1) Phosphorus Level 3.4 mg/dL (2.6-4.7) Magnesium Level 1.8 mg/dL (1.8-2.4) O2 Saturation 95 % (92-99) 95 % (92-99) Arterial Blood pH 7.42 (7.35-7.45) 7.41 (7.35-7.45) Arterial Blood pCO2 at Patient Temp 47 mmHg (35-46) 49 mmHg (35-46) Arterial Blood pO2 at Patient Temp 81 mmHg (75-108) 80 mmHg (75-108) Arterial Blood HCO3 30 mmol/L (21-28) 31 mmol/L (21-28) Arterial Blood Base Excess 5 mmol/L (-3-3) 5 mmol/L (-3-3) FiO2 40 cpap trial 40% Test 01/02/22 05:30 01/02/22 09:30 Sodium Level 132 mmol/L (136-145) Potassium Level 3.9 mmol/L (3.5-5.1) Chloride Level 94 mmol/L (98-107) Carbon Dioxide Level 33 mmol/L (21-32) Anion Gap 5 (6-14) Blood Urea Nitrogen 11 mg/dL (8-26) Creatinine 0.5 mg/dL (0.7-1.3) Estimated GFR (Cockcroft-Gault) 171.4 Glucose Level 149 mg/dL (70-99) Calcium Level 8.2 mg/dL (8.5-10.1) O2 Saturation 93 % (92-99) Arterial Blood pH 7.33 (7.35-7.45) Arterial Blood pCO2 at Patient Temp 60 mmHg (35-46) Arterial Blood pO2 at Patient Temp 76 mmHg (75-108) Arterial Blood HCO3 31 mmol/L (21-28) Arterial Blood Base Excess 3 mmol/L (-3-3) FiO2 40 Laboratory Tests Test 01/01/22 13:19 01/02/22 05:30 01/02/22 09:30 O2 Saturation 95 % (92-99) 93 % (92-99) Arterial Blood pH 7.41 (7.35-7.45) 7.33 (7.35-7.45) Arterial Blood pCO2 at Patient Temp 49 mmHg (35-46) 60 mmHg (35-46) Arterial Blood pO2 at Patient Temp 80 mmHg (75-108) 76 mmHg (75-108) Arterial Blood HCO3 31 mmol/L (21-28) 31 mmol/L (21-28) Arterial Blood Base Excess 5 mmol/L (-3-3) 3 mmol/L (-3-3) FiO2 cpap trial 40% 40 Sodium Level 132 mmol/L (136-145) Potassium Level 3.9 mmol/L (3.5-5.1) Chloride Level 94 mmol/L (98-107) Carbon Dioxide Level 33 mmol/L (21-32) Anion Gap 5 (6-14) Blood Urea Nitrogen 11 mg/dL (8-26) Creatinine 0.5 mg/dL (0.7-1.3) Estimated GFR (Cockcroft-Gault) 171.4 Glucose Level 149 mg/dL (70-99) Calcium Level 8.2 mg/dL (8.5-10.1) Medications Active Scripts Medications Dose Route/Sig Max Daily Dose Days Date Category Dose Instructions Amlodipine Besylate 10 Mg Tablet 10 Mg PO DAILY 12/30/21 Reported Metoprolol Succinate ( Xl ) (Metoprolol Succinate) 25 Mg Tab.er.24h 12.5 Mg PO DAILY 30 02/02/21 Rx Atorvastatin Calcium 40 Mg Tablet 80 Mg PO QHS 30 02/02/21 Rx Proair Hfa (Albuterol Sulfate) 8.5 Gm Hfa.aer.ad 2.5 Mg NEB PRN Q4HRS PRN 30 02/02/21 Rx Multi Vitamin Daily (Multivitamin) 1 Each Tablet 1 Tab PO DAILY 30 01/30/21 Reported Lisinopril 40 Mg Tablet 40 Mg PO DAILY 01/30/21 Reported Famotidine 20 Mg Tablet 20 Mg PO BID 01/30/21 Reported Combivent Respimat Inhal (Ipratropium/Albuterol Sulfate) 4 Gm Aer.w.adap 1 Inh IH QID 01/30/21 Reported Biofreeze (Menthol) 118 Ml Gel..ml. 1 Keri TP QID 7 01/30/21 Reported Vitamin B-1 (Thiamine Mononitrate) 100 Mg Tablet 100 Mg PO DAILY 30 11/16/20 Rx Invega Sustenna (Paliperidone Palmitate) 117 Mg/0.75 Ml Disp.syrin 0 IM QMONTH 30 11/16/20 Rx Next dose 11/21/[address] chest reviewed dated 12/31/2021. Bibasilar consolidation. No definite mass seen. CT head with no intracranial abnormalities. Chest x-ray reviewed 12/30/2021. Evidence of COPD. Volume loss in the left lower lobe suspect combination of pleural effusion and infiltrate Impression . 1. Acute on chronic hypercapnic respiratory failure secondary to acute exacerbation of chronic obstructive pulmonary disease. Patient had worsening hypoxia and hypercapnia on night of 12/30/2021. Patient intubated. Currently on assist control mode with improving ABGs. 2. Left lower lobe pneumonia. 3. Encephalopathy secondary to hypercapnia. 4. Severe hyponatremia. Needs to rule out any central nervous system pathology as well.--Improving nephrology following 5. Suspected underlying severe chronic obstructive pulmonary disease. 6. Abnormal CT chest with bibasilar consolidation/atelectasis.. No definite mass seen. Plan . Updated 01/02/2022 Continue current ventilatory support with assist control mode 40%, patient tolerated CPAP trial today however not quite ready for extubation secondary to tachypnea, and hypercarbia Chest x-ray/ABG Bronchodilators Continue Precedex, for sedation Decrease steroids Continue antibiotics Follow nephrology recommendations in regards to hyponatremia DVT/GI prophylaxis Continue tube feeding for nutritional support Discussed with RN and RT Patient is a DO NOT RESUSCITATE Updated 01/01/2022. 1. We will discontinue sedation. Once awake, will start CPAP trial. 2. Continue antibiotics. 3. IV Solu-Medrol. 4. Follow-up chest x-rays as needed. 5. Clinically improved. Once off sedation will assess baseline mental status. Patient has underlying schizophrenia. 6. CT head and CT chest without any evidence of malignancy. 7. Discussed with RN. We will follow along with you. 8. Follow sodium. Improving levels. 9. DVT and stress ulcer prophylaxis. Discussed with RN and RT RECOMMENDATIONS: 1. Continue with present assist control mode. ABGs have improved. 2. Continue antibiotics. 3. IV Solu-Medrol. 4. Follow-up chest x-rays as needed. 5. Will likely discontinue sedation in the next 24 hours and assess for mental status. 6. We will need a CT head and a CT chest to further workup hyponatremia. 7. Discussed with RN. We will follow along with you. 8. Follow sodium. Improving levels. 9. DVT and stress ulcer prophylaxis. Discussed with RN and RT last evening as well as this morning. We will continue present aggressive care. Critical care time 35 minutes YANE AVILA MD Jan 02, 2022 10:38
--- NOTE | 2022-01-02 11:17 | PDOC ---
[facility] PROGRESS NOTE Date of Service DOS: DATE: 01/02/22 TIME: 11:15 Chief Complaint Chief Complaint Assessment/Plan Left-sided atypical pneumonia, possible gram-negative organisms Acute COPD exacerbation Severe hyponatremia Acute electrolyte derangement suggestive of volume depletion History of tobacco misuse History of COPD History of hypertension History of schizophrenia Admit to hospitalist service for further management Pulmonology consult for BiPAP management Nephrology consult for hyponatremia management Hypertonic saline Continue IV fluids IV steroids Empiric IV antibiotics Pending blood cultures Pending Legionella antigen of the urine and MRSA PCR screen Lovenox for DVT prophylaxis Protonix while on steroids GI prophylaxis ADA diet CODE STATUS full Discussed with RN and SW Disposition inpatient management as above DPOA: Father History of Present Illness History of Present Illness 01/02 Patient evaluated examined at bedside. Remains intubated sedated critically ill. Possible chance at weaning trial later. Continue antibiotics. Continue current plan. 40 minutes critical care time 01/01 Patient evaluated examined at bedside. Intubated sedated. Remains critically ill. CT head from yesterday unremarkable. Hyponatremia improving. CT chest showing lung consolidations. Continue cefepime azithromycin. Possible try to wean sedation and see how mental status does. 35 minutes critical care time 12/31 Patient evaluated examined at bedside. Intubated sedated remains critically ill. Continue antibiotics. CT scan ordered for today. 41 minutes critical care time. Vitals/I&O Vitals/I&O: Vital Signs Date Time Temp Pulse Resp B/P (MAP) Pulse Ox O2 Delivery O2 Flow Rate FiO2 01/02/22 09:00 86 29 146/101 93 Ventilator 01/02/22 08:00 98.1 98.1 I & O 01/01/22 01/01/22 01/02/22 15:00 23:00 07:00 Intake Total 1757 ml 1983.5 ml Output Total 460 ml 1840 ml 1965 ml Balance -460 ml -83 ml 18.5 ml Physical Exam General: No acute distress Heart: Regular rate Lungs: Clear, Other (Decreased breath sounds at the bases.) Abdomen: Normal bowel sounds Extremities: No clubbing Skin: No breakdown Labs Labs: Laboratory Tests Test 01/01/22 13:19 01/02/22 05:30 01/02/22 09:30 O2 Saturation 95 % (92-99) 93 % (92-99) Arterial Blood pH 7.41 (7.35-7.45) 7.33 (7.35-7.45) Arterial Blood pCO2 at Patient Temp 49 mmHg (35-46) 60 mmHg (35-46) Arterial Blood pO2 at Patient Temp 80 mmHg (75-108) 76 mmHg (75-108) Arterial Blood HCO3 31 mmol/L (21-28) 31 mmol/L (21-28) Arterial Blood Base Excess 5 mmol/L (-3-3) 3 mmol/L (-3-3) FiO2 cpap trial 40% 40 Sodium Level 132 mmol/L (136-145) Potassium Level 3.9 mmol/L (3.5-5.1) Chloride Level 94 mmol/L (98-107) Carbon Dioxide Level 33 mmol/L (21-32) Anion Gap 5 (6-14) Blood Urea Nitrogen 11 mg/dL (8-26) Creatinine 0.5 mg/dL (0.7-1.3) Estimated GFR (Cockcroft-Gault) 171.4 Glucose Level 149 mg/dL (70-99) Calcium Level 8.2 mg/dL (8.5-10.1) Assessment and Plan Assessmemt and Plan Problems Medical Problems: (1) COPD exacerbation Status: Acute Comment Review of Relevant I have reviewed the following items kye (where applicable) has been applied. Justifications for Admission Other Justification COPD exacerbation, hyponatremia JUAN RAMOS MD Jan 02, 2022 11:17
[2022-01-02 15:31] LABS: BASE EXCESS ABG 6 mmol/L (-3-3); HCO3 ABG 35 mmol/L (21-28); PO2 ABG 89 mmHg (75-108); SAT O2 ABG 95 % (92-99)
[2022-01-02 15:35] LABS: FIO2 ABG 35; PCO2 ABG 78 mmHg (35-46)
[2022-01-02] MEDS: IV NORMAL SALINE 1000ML BAG 1,000 ML IV SCH (15:50)
--- NOTE | 2022-01-02 16:51 | NUR ---
pt given sedation vacation this morning, put on cpap trial, blood gas drawn after an hour, blood gas not wnl, dr ceballos stated to place pt back on assist control, lower fio2 to 35% and then redo trial later. pt was placed back on trial about 1415, blood gas drawn and results called to dr ceballos again, order to place pt back on a/c mode and resedate overnight.
[2022-01-02] MEDS: AZITHROMYCIN 500 MG in IV NORMAL SALINE 250ML 250 ML IV SCH (21:32)
[2022-01-02] MEDS: MUPIROCIN 2 % OINTMENT 22GM TUBE. NS SCH (21:33)
[2022-01-02] MEDS: FAMOTIDINE 20 MG/2 ML VIAL IVP SCH (21:33)
[2022-01-02] MEDS: ENOXAPARIN 40 MG/0.4 ML SYRINGE. SQ SCH (21:33)
[2022-01-03] VITALS (24 sets, daily range): BP systolic 94–162; BP diastolic 69–103
[2022-01-03] MEDS: PROPOFOL 100 ML IV PRN (03:23)
[2022-01-03] MEDS: CEFEPIME HCL IV Push 1 GM VIAL. IVP SCH ×3 (06:03→23:00)
[2022-01-03] MEDS: DEXMEDETOMIDINE 400 MCG in IV NORMAL SALINE 100ML 96 ML IV PRN (06:04)
[2022-01-03 06:20] LABS: CALCIUM 8.2 mg/dL (8.5-10.1); CREATININE 0.4 mg/dL (0.7-1.3); GFR 221.7; POTASSIUM 3.5 mmol/L (3.5-5.1)
[2022-01-03 08:37] LABS: BASE EXCESS ABG 8 mmol/L (-3-3); HCO3 ABG 32 mmol/L (21-28); PCO2 ABG 44 mmHg (35-46); PO2 ABG 82 mmHg (75-108); SAT O2 ABG 96 % (92-99)
[2022-01-03 08:44] LABS: FIO2 ABG 40% AC 14 500 5
[2022-01-03] MEDS: methylPREDNISolone SOD SUCC PF 40 MG/ML VIAL. IV SCH (08:59)
[2022-01-03] MEDS: IV NORMAL SALINE 1000ML BAG 1,000 ML IV SCH (08:59)
[2022-01-03] MEDS: MUPIROCIN 2 % OINTMENT 22GM TUBE. NS SCH ×2 (09:00→23:01)
[2022-01-03 09:48] LABS: BASE EXCESS ABG 8 mmol/L (-3-3); HCO3 ABG 34 mmol/L (21-28); PO2 ABG 81 mmHg (75-108); SAT O2 ABG 94 % (92-99)
[2022-01-03 09:55] LABS: FIO2 ABG 35% PS 10 PEEP 5; PCO2 ABG 60 mmHg (35-46)
--- NOTE | 2022-01-03 10:33 | PDOC ---
PULMONARY PROGRESS NOTES DATE: 01/03/22 TIME: 10:31 Subjective Patient remains on vent support, currently on CPAP trial--tolerating well No overnight concerns from nursing, plan to extubate today Vitals Vital Signs Date Time Temp Pulse Resp B/P (MAP) Pulse Ox O2 Delivery O2 Flow Rate FiO2 01/03/22 10:23 Venturi Mask 12.0 01/03/22 10:15 97 01/03/22 10:00 71 14 114/81 01/03/22 08:00 98.4 98.4 Comments Remains intubated General: Alert HEENT: Other Lungs: Clear, Other (Decreased breath sounds at the bases.) Cardiovascular: S1, S2 Abdomen: Soft, Non-tender, Other Extremities: No Edema Labs Laboratory Tests Test 01/01/22 13:19 01/02/22 05:30 01/02/22 09:30 01/02/22 15:15 O2 Saturation 95 % (92-99) 93 % (92-99) 95 % (92-99) Arterial Blood pH 7.41 (7.35-7.45) 7.33 (7.35-7.45) 7.28 (7.35-7.45) Arterial Blood pCO2 at Patient Temp 49 mmHg (35-46) 60 mmHg (35-46) 78 mmHg (35-46) Arterial Blood pO2 at Patient Temp 80 mmHg (75-108) 76 mmHg (75-108) 89 mmHg (75-108) Arterial Blood HCO3 31 mmol/L (21-28) 31 mmol/L (21-28) 35 mmol/L (21-28) Arterial Blood Base Excess 5 mmol/L (-3-3) 3 mmol/L (-3-3) 6 mmol/L (-3-3) FiO2 cpap trial 40% 40 35 Sodium Level 132 mmol/L (136-145) Potassium Level 3.9 mmol/L (3.5-5.1) Chloride Level 94 mmol/L (98-107) Carbon Dioxide Level 33 mmol/L (21-32) Anion Gap 5 (6-14) Blood Urea Nitrogen 11 mg/dL (8-26) Creatinine 0.5 mg/dL (0.7-1.3) Estimated GFR (Cockcroft-Gault) 171.4 Glucose Level 149 mg/dL (70-99) Calcium Level 8.2 mg/dL (8.5-10.1) Test 01/03/22 06:00 01/03/22 08:25 01/03/22 09:35 Sodium Level 132 mmol/L (136-145) Potassium Level 3.5 mmol/L (3.5-5.1) Chloride Level 95 mmol/L (98-107) Carbon Dioxide Level 36 mmol/L (21-32) Anion Gap 1 (6-14) Blood Urea Nitrogen 17 mg/dL (8-26) Creatinine 0.4 mg/dL (0.7-1.3) Estimated GFR (Cockcroft-Gault) 221.7 Glucose Level 118 mg/dL (70-99) Calcium Level 8.2 mg/dL (8.5-10.1) O2 Saturation 96 % (92-99) 94 % (92-99) Arterial Blood pH 7.49 (7.35-7.45) 7.38 (7.35-7.45) Arterial Blood pCO2 at Patient Temp 44 mmHg (35-46) 60 mmHg (35-46) Arterial Blood pO2 at Patient Temp 82 mmHg (75-108) 81 mmHg (75-108) Arterial Blood HCO3 32 mmol/L (21-28) 34 mmol/L (21-28) Arterial Blood Base Excess 8 mmol/L (-3-3) 8 mmol/L (-3-3) FiO2 40% ac 14 500 5 35% ps 10 peep 5 Laboratory Tests Test 01/02/22 15:15 01/03/22 06:00 01/03/22 08:25 01/03/22 09:35 O2 Saturation 95 % (92-99) 96 % (92-99) 94 % (92-99) Arterial Blood pH 7.28 (7.35-7.45) 7.49 (7.35-7.45) 7.38 (7.35-7.45) Arterial Blood pCO2 at Patient Temp 78 mmHg (35-46) 44 mmHg (35-46) 60 mmHg (35-46) Arterial Blood pO2 at Patient Temp 89 mmHg (75-108) 82 mmHg (75-108) 81 mmHg (75-108) Arterial Blood HCO3 35 mmol/L (21-28) 32 mmol/L (21-28) 34 mmol/L (21-28) Arterial Blood Base Excess 6 mmol/L (-3-3) 8 mmol/L (-3-3) 8 mmol/L (-3-3) FiO2 35 40% ac 14 500 5 35% ps 10 peep 5 Sodium Level 132 mmol/L (136-145) Potassium Level 3.5 mmol/L (3.5-5.1) Chloride Level 95 mmol/L (98-107) Carbon Dioxide Level 36 mmol/L (21-32) Anion Gap 1 (6-14) Blood Urea Nitrogen 17 mg/dL (8-26) Creatinine 0.4 mg/dL (0.7-1.3) Estimated GFR (Cockcroft-Gault) 221.7 Glucose Level 118 mg/dL (70-99) Calcium Level 8.2 mg/dL (8.5-10.1) Medications Active Scripts Medications Dose Route/Sig Max Daily Dose Days Date Category Dose Instructions Amlodipine Besylate 10 Mg Tablet 10 Mg PO DAILY 12/30/21 Reported Metoprolol Succinate ( Xl ) (Metoprolol Succinate) 25 Mg Tab.er.24h 12.5 Mg PO DAILY 30 02/02/21 Rx Atorvastatin Calcium 40 Mg Tablet 80 Mg PO QHS 30 02/02/21 Rx Proair Hfa (Albuterol Sulfate) 8.5 Gm Hfa.aer.ad 2.5 Mg NEB PRN Q4HRS PRN 30 02/02/21 Rx Multi Vitamin Daily (Multivitamin) 1 Each Tablet 1 Tab PO DAILY 30 01/30/21 Reported Lisinopril 40 Mg Tablet 40 Mg PO DAILY 01/30/21 Reported Famotidine 20 Mg Tablet 20 Mg PO BID 01/30/21 Reported Combivent Respimat Inhal (Ipratropium/Albuterol Sulfate) 4 Gm Aer.w.adap 1 Inh IH QID 01/30/21 Reported Biofreeze (Menthol) 118 Ml Gel..ml. 1 Keri TP QID 7 01/30/21 Reported Vitamin B-1 (Thiamine Mononitrate) 100 Mg Tablet 100 Mg PO DAILY 30 11/16/20 Rx Invega Sustenna (Paliperidone Palmitate) 117 Mg/0.75 Ml Disp.syrin 0 IM QMONTH 30 11/16/20 Rx Next dose 11/21/[address] chest reviewed dated 12/31/2021. Bibasilar consolidation. No definite mass seen. CT head with no intracranial abnormalities. Chest x-ray reviewed 12/30/2021. Evidence of COPD. Volume loss in the left lower lobe suspect combination of pleural effusion and infiltrate Impression . 1. Acute on chronic hypercapnic respiratory failure secondary to acute exacerbation of chronic obstructive pulmonary disease. Patient had worsening hypoxia and hypercapnia on night of 12/30/2021. Patient intubated. Currently on assist control mode with improving ABGs. 2. Left lower lobe pneumonia. 3. Encephalopathy secondary to hypercapnia. 4. Severe hyponatremia. Needs to rule out any central nervous system pathology as well.--Improving nephrology following 5. Suspected underlying severe chronic obstructive pulmonary disease. 6. Abnormal CT chest with bibasilar consolidation/atelectasis.. No definite mass seen. Plan . Updated 12/2021 Continue current ventilatory support with assist control mode 40%, patient tolerated CPAP today, proceed with extubation, discussed at length with DPOA/father Jamshid who does not want to proceed with reintubation should the patient experience respiratory failure again BiPAP at night Bronchodilators Continue steroids, with slow taper, currently on daily dosing Continue antibiotics Follow nephrology recommendations DVT/GI prophylaxis PT/OT/ST Discussed with RN and RT Patient is a DO NOT RESUSCITATE Critical care time 30 minutes Updated 01/02/2022 Continue current ventilatory support with assist control mode 40%, patient tolerated CPAP trial today however not quite ready for extubation secondary to tachypnea, and hypercarbia Chest x-ray/ABG Bronchodilators Continue Precedex, for sedation Decrease steroids Continue antibiotics Follow nephrology recommendations in regards to hyponatremia DVT/GI prophylaxis Continue tube feeding for nutritional support Discussed with RN and RT Patient is a DO NOT RESUSCITATE Updated 01/01/2022. 1. We will discontinue sedation. Once awake, will start CPAP trial. 2. Continue antibiotics. 3. IV Solu-Medrol. 4. Follow-up chest x-rays as needed. 5. Clinically improved. Once off sedation will assess baseline mental status. Patient has underlying schizophrenia. 6. CT head and CT chest without any evidence of malignancy. 7. Discussed with RN. We will follow along with you. 8. Follow sodium. Improving levels. 9. DVT and stress ulcer prophylaxis. Discussed with RN and RT RECOMMENDATIONS: 1. Continue with present assist control mode. ABGs have improved. 2. Continue antibiotics. 3. IV Solu-Medrol. 4. Follow-up chest x-rays as needed. 5. Will likely discontinue sedation in the next 24 hours and assess for mental status. 6. We will need a CT head and a CT chest to further workup hyponatremia. 7. Discussed with RN. We will follow along with you. 8. Follow sodium. Improving levels. 9. DVT and stress ulcer prophylaxis. Discussed with RN and RT last evening as well as this morning. We will continue present aggressive care. Critical care time 35 minutes YANE AVILA MD Jan 03, 2022 10:33
--- NOTE | 2022-01-03 10:45 | PDOC ---
Renal-Progress Notes Subjective Notes Notes NONE History of Present Illness Hx of present illness NO ACUTE CHANGES Vitals Vitals Vital Signs Date Time Temp Pulse Resp B/P (MAP) Pulse Ox O2 Delivery O2 Flow Rate FiO2 01/03/22 10:23 Venturi Mask 12.0 01/03/22 10:15 97 01/03/22 10:00 71 14 114/81 01/03/22 08:00 98.4 98.4 Weight Weight [ ] I.O. Intake and Output Intake and Output 01/03/22 07:00 Intake Total 3136.3 ml Output Total 3600 ml Balance -463.7 ml IV Total 2369.3 ml Tube Feeding 567 ml Other 200 ml Output Urine Total 3600 ml Labs Labs Laboratory Tests Test 01/02/22 15:15 01/03/22 06:00 01/03/22 08:25 01/03/22 09:35 O2 Saturation 95 % (92-99) 96 % (92-99) 94 % (92-99) Arterial Blood pH 7.28 (7.35-7.45) 7.49 (7.35-7.45) 7.38 (7.35-7.45) Arterial Blood pCO2 at Patient Temp 78 mmHg (35-46) 44 mmHg (35-46) 60 mmHg (35-46) Arterial Blood pO2 at Patient Temp 89 mmHg (75-108) 82 mmHg (75-108) 81 mmHg (75-108) Arterial Blood HCO3 35 mmol/L (21-28) 32 mmol/L (21-28) 34 mmol/L (21-28) Arterial Blood Base Excess 6 mmol/L (-3-3) 8 mmol/L (-3-3) 8 mmol/L (-3-3) FiO2 35 40% ac 14 500 5 35% ps 10 peep 5 Sodium Level 132 mmol/L (136-145) Potassium Level 3.5 mmol/L (3.5-5.1) Chloride Level 95 mmol/L (98-107) Carbon Dioxide Level 36 mmol/L (21-32) Anion Gap 1 (6-14) Blood Urea Nitrogen 17 mg/dL (8-26) Creatinine 0.4 mg/dL (0.7-1.3) Estimated GFR (Cockcroft-Gault) 221.7 Glucose Level 118 mg/dL (70-99) Calcium Level 8.2 mg/dL (8.5-10.1) Review of Systems Constitutional: yes: unresponsive Physical Exam General Appearance: no apparent distress Respiratory: decreased breath sounds Heart: RRR Abdomen: soft, bowel sounds present Genitourinary: bladder flat Extremities: atrophy Neurology: other (SEDATED) Assessment Assessment IMP SEVERE HYPONATREMIA-PROB SIADH-NA IMPROVED TO 132 ACUTE ON CHRONIC HYPERCARBIC HYPOXIC RESP FAILURE LLL PNEUMONIA MET ENCEPHALOPATHY AECOPD PLAN STOP IVF'S CONT TF VENT SUPPORT ANTIBIOTICS WILL FOLLOW . CHUY LONGO MD Jan 03, 2022 10:44
[2022-01-03] MEDS: IPRATRPIUM/ALBUTEROL 0.5/2.5MG 3 ML NEBU. NEB SCH ×3 (11:47→20:06)
--- NOTE | 2022-01-03 12:21 | PDOC ---
[facility] PROGRESS NOTE Date of Service DOS: DATE: 01/03/22 TIME: 12:20 Chief Complaint Chief Complaint Assessment/Plan Left-sided atypical pneumonia, possible gram-negative organisms Acute COPD exacerbation Severe hyponatremia Acute electrolyte derangement suggestive of volume depletion History of tobacco misuse History of COPD History of hypertension History of schizophrenia Admit to hospitalist service for further management Pulmonology consult for BiPAP management Nephrology consult for hyponatremia management Hypertonic saline Continue IV fluids IV steroids Empiric IV antibiotics Pending blood cultures Pending Legionella antigen of the urine and MRSA PCR screen Lovenox for DVT prophylaxis Protonix while on steroids GI prophylaxis ADA diet CODE STATUS full Discussed with RN and SW Disposition inpatient management as above DPOA: Father History of Present Illness History of Present Illness 01/03 Evaluate examined at bedside. Able to extubate now on nasal cannula. Doing well. Can likely transfer upstairs later. Otherwise continue current plan. 01/02 Patient evaluated examined at bedside. Remains intubated sedated critically ill. Possible chance at weaning trial later. Continue antibiotics. Continue current plan. 40 minutes critical care time 01/01 Patient evaluated examined at bedside. Intubated sedated. Remains critically ill. CT head from yesterday unremarkable. Hyponatremia improving. CT chest showing lung consolidations. Continue cefepime azithromycin. Possible try to wean sedation and see how mental status does. 35 minutes critical care time 12/31 Patient evaluated examined at bedside. Intubated sedated remains critically ill. Continue antibiotics. CT scan ordered for today. 41 minutes critical care time. Vitals/I&O Vitals/I&O: Vital Signs Date Time Temp Pulse Resp B/P (MAP) Pulse Ox O2 Delivery O2 Flow Rate FiO2 01/03/22 12:00 97.3 63 14 117/90 93 Nasal Cannula 2.0 97.3 I & O 01/02/22 01/02/22 01/03/22 14:59 22:59 06:59 Intake Total 1484 ml 1652.3 ml Output Total 1400 ml 1725 ml 475 ml Balance -1400 ml -241 ml 1177.3 ml Physical Exam General: Alert, Cooperative, No acute distress Heart: Regular rate Lungs: Clear, Other (Decreased breath sounds at the bases.) Abdomen: Normal bowel sounds Extremities: No clubbing Skin: No breakdown Labs Labs: Laboratory Tests Test 01/02/22 15:15 01/03/22 06:00 01/03/22 08:25 01/03/22 09:35 O2 Saturation 95 % (92-99) 96 % (92-99) 94 % (92-99) Arterial Blood pH 7.28 (7.35-7.45) 7.49 (7.35-7.45) 7.38 (7.35-7.45) Arterial Blood pCO2 at Patient Temp 78 mmHg (35-46) 44 mmHg (35-46) 60 mmHg (35-46) Arterial Blood pO2 at Patient Temp 89 mmHg (75-108) 82 mmHg (75-108) 81 mmHg (75-108) Arterial Blood HCO3 35 mmol/L (21-28) 32 mmol/L (21-28) 34 mmol/L (21-28) Arterial Blood Base Excess 6 mmol/L (-3-3) 8 mmol/L (-3-3) 8 mmol/L (-3-3) FiO2 35 40% ac 14 500 5 35% ps 10 peep 5 Sodium Level 132 mmol/L (136-145) Potassium Level 3.5 mmol/L (3.5-5.1) Chloride Level 95 mmol/L (98-107) Carbon Dioxide Level 36 mmol/L (21-32) Anion Gap 1 (6-14) Blood Urea Nitrogen 17 mg/dL (8-26) Creatinine 0.4 mg/dL (0.7-1.3) Estimated GFR (Cockcroft-Gault) 221.7 Glucose Level 118 mg/dL (70-99) Calcium Level 8.2 mg/dL (8.5-10.1) Assessment and Plan Assessmemt and Plan Problems Medical Problems: (1) COPD exacerbation Status: Acute Comment Review of Relevant I have reviewed the following items kye (where applicable) has been applied. Medications: Current Medications Medications (Trade) Dose Ordered Sig/Jean Carlos Route PRN Reason Start Time Stop Time Status Last Admin Dose Admin Mupirocin (Bactroban) 1 pily BID NS 01/02/22 21:00 01/07/22 09:01 01/03/22 09:00 Albuterol/ Ipratropium (Duoneb) 3 ml RTQID NEB 01/03/22 12:00 01/03/22 11:47 Justifications for Admission Other Justification COPD exacerbation, hyponatremia JUAN RAMOS MD Jan 03, 2022 12:21
--- NOTE | 2022-01-03 16:23 | NUR ---
SS following up with discharge planning. SS reviewed pt chart and discussed with pt RN. Pt is LTC resident from [facility] in [place], ; fax [phone]. Pt extubated this morning. Pt is currently on Venti Mask at 40%. COVID19 negative. Pt on IV Solu-Medrol and IV Cefepime. PT/OT/ST ordered. Not ready. SS will continue to follow for discharge planning.
[2022-01-03] MEDS: FAMOTIDINE 20 MG/2 ML VIAL IVP SCH (23:00)
[2022-01-03] MEDS: ENOXAPARIN 40 MG/0.4 ML SYRINGE. SQ SCH (23:01)
[2022-01-04] VITALS (17 sets, daily range): BP systolic 94–155; BP diastolic 54–101
[2022-01-04 04:55] LABS: CALCIUM 7.6 mg/dL (8.5-10.1); CREATININE 0.5 mg/dL (0.7-1.3); GFR 171.4
[2022-01-04 04:56] LABS: POTASSIUM 2.8 mmol/L (3.5-5.1)
[2022-01-04] MEDS: CEFEPIME HCL IV Push 1 GM VIAL. IVP SCH ×3 (06:11→22:26)
[2022-01-04] MEDS ORDERED: POTASSIUM CHLORIDE 20MEQ 100 ML IV ONE ×3 (06:30→08:30)
[2022-01-04] MEDS: IPRATRPIUM/ALBUTEROL 0.5/2.5MG 3 ML NEBU. NEB SCH ×4 (07:23→20:00)
[2022-01-04] MEDS: methylPREDNISolone SOD SUCC PF 40 MG/ML VIAL. IV SCH (09:17)
[2022-01-04] MEDS: MUPIROCIN 2 % OINTMENT 22GM TUBE. NS SCH ×2 (09:17→21:00)
--- NOTE | 2022-01-04 10:28 | PDOC ---
Renal-Progress Notes Subjective Notes Notes NONE History of Present Illness Hx of present illness NO ACUTE CHANGE Vitals Vitals Vital Signs Date Time Temp Pulse Resp B/P (MAP) Pulse Ox O2 Delivery O2 Flow Rate FiO2 01/04/22 09:00 79 16 143/60 93 High Flow Nasal Cannula 1.0 01/04/22 04:00 99.7 99.7 Weight Weight [ ] I.O. Intake and Output Intake and Output 01/04/22 07:00 Intake Total 497 ml Output Total 2680 ml Balance -2183 ml IV Total 497 ml Output Urine Total 2680 ml # Bowel Movements 1 Labs Labs Laboratory Tests Test 01/04/22 04:40 Sodium Level 136 mmol/L (136-145) Potassium Level 2.8 mmol/L (3.5-5.1) Chloride Level 99 mmol/L (98-107) Carbon Dioxide Level 33 mmol/L (21-32) Anion Gap 4 (6-14) Blood Urea Nitrogen 13 mg/dL (8-26) Creatinine 0.5 mg/dL (0.7-1.3) Estimated GFR (Cockcroft-Gault) 171.4 Glucose Level 85 mg/dL (70-99) Calcium Level 7.6 mg/dL (8.5-10.1) Review of Systems Constitutional: yes: unresponsive Physical Exam General Appearance: no apparent distress Respiratory: decreased breath sounds Heart: RRR Abdomen: soft, bowel sounds present Genitourinary: bladder flat Extremities: atrophy Neurology: other (SEDATED) Assessment Assessment IMP SEVERE HYPONATREMIA-RESOLVED HYPOKALEMIA ACUTE ON CHRONIC HYPERCARBIC HYPOXIC RESP FAILURE LLL PNEUMONIA MET ENCEPHALOPATHY AECOPD PLAN K REPLACED WILL SIGN OFF . CHUY LONGO MD Jan 04, 2022 10:28
--- NOTE | 2022-01-04 10:51 | PDOC ---
PULMONARY PROGRESS NOTES DATE: 01/04/22 TIME: 10:49 Subjective Patient did well during CPAP trial yesterday. Extubated 01/03/2022 Currently on nasal cannula. Vitals Vital Signs Date Time Temp Pulse Resp B/P (MAP) Pulse Ox O2 Delivery O2 Flow Rate FiO2 01/04/22 09:00 79 16 143/60 93 High Flow Nasal Cannula 1.0 01/04/22 04:00 99.7 99.7 Comments Remains intubated General: Alert, No acute distress HEENT: Other Lungs: Clear Cardiovascular: S1, S2 Abdomen: Soft, Non-tender, Other Extremities: No Edema Labs Laboratory Tests Test 01/02/22 15:15 01/03/22 06:00 01/03/22 08:25 01/03/22 09:35 O2 Saturation 95 % (92-99) 96 % (92-99) 94 % (92-99) Arterial Blood pH 7.28 (7.35-7.45) 7.49 (7.35-7.45) 7.38 (7.35-7.45) Arterial Blood pCO2 at Patient Temp 78 mmHg (35-46) 44 mmHg (35-46) 60 mmHg (35-46) Arterial Blood pO2 at Patient Temp 89 mmHg (75-108) 82 mmHg (75-108) 81 mmHg (75-108) Arterial Blood HCO3 35 mmol/L (21-28) 32 mmol/L (21-28) 34 mmol/L (21-28) Arterial Blood Base Excess 6 mmol/L (-3-3) 8 mmol/L (-3-3) 8 mmol/L (-3-3) FiO2 35 40% ac 14 500 5 35% ps 10 peep 5 Sodium Level 132 mmol/L (136-145) Potassium Level 3.5 mmol/L (3.5-5.1) Chloride Level 95 mmol/L (98-107) Carbon Dioxide Level 36 mmol/L (21-32) Anion Gap 1 (6-14) Blood Urea Nitrogen 17 mg/dL (8-26) Creatinine 0.4 mg/dL (0.7-1.3) Estimated GFR (Cockcroft-Gault) 221.7 Glucose Level 118 mg/dL (70-99) Calcium Level 8.2 mg/dL (8.5-10.1) Test 01/04/22 04:40 Sodium Level 136 mmol/L (136-145) Potassium Level 2.8 mmol/L (3.5-5.1) Chloride Level 99 mmol/L (98-107) Carbon Dioxide Level 33 mmol/L (21-32) Anion Gap 4 (6-14) Blood Urea Nitrogen 13 mg/dL (8-26) Creatinine 0.5 mg/dL (0.7-1.3) Estimated GFR (Cockcroft-Gault) 171.4 Glucose Level 85 mg/dL (70-99) Calcium Level 7.6 mg/dL (8.5-10.1) Laboratory Tests Test 01/04/22 04:40 Sodium Level 136 mmol/L (136-145) Potassium Level 2.8 mmol/L (3.5-5.1) Chloride Level 99 mmol/L (98-107) Carbon Dioxide Level 33 mmol/L (21-32) Anion Gap 4 (6-14) Blood Urea Nitrogen 13 mg/dL (8-26) Creatinine 0.5 mg/dL (0.7-1.3) Estimated GFR (Cockcroft-Gault) 171.4 Glucose Level 85 mg/dL (70-99) Calcium Level 7.6 mg/dL (8.5-10.1) Medications Active Scripts Medications Dose Route/Sig Max Daily Dose Days Date Category Dose Instructions Amlodipine Besylate 10 Mg Tablet 10 Mg PO DAILY 12/30/21 Reported Metoprolol Succinate ( Xl ) (Metoprolol Succinate) 25 Mg Tab.er.24h 12.5 Mg PO DAILY 30 02/02/21 Rx Atorvastatin Calcium 40 Mg Tablet 80 Mg PO QHS 30 02/02/21 Rx Proair Hfa (Albuterol Sulfate) 8.5 Gm Hfa.aer.ad 2.5 Mg NEB PRN Q4HRS PRN 30 02/02/21 Rx Multi Vitamin Daily (Multivitamin) 1 Each Tablet 1 Tab PO DAILY 30 01/30/21 Reported Lisinopril 40 Mg Tablet 40 Mg PO DAILY 01/30/21 Reported Famotidine 20 Mg Tablet 20 Mg PO BID 01/30/21 Reported Combivent Respimat Inhal (Ipratropium/Albuterol Sulfate) 4 Gm Aer.w.adap 1 Inh IH QID 01/30/21 Reported Biofreeze (Menthol) 118 Ml Gel..ml. 1 Keri TP QID 7 01/30/21 Reported Vitamin B-1 (Thiamine Mononitrate) 100 Mg Tablet 100 Mg PO DAILY 30 11/16/20 Rx Invega Sustenna (Paliperidone Palmitate) 117 Mg/0.75 Ml Disp.syrin 0 IM QMONTH 30 11/16/20 Rx Next dose 11/21/[address] chest reviewed dated 12/31/2021. Bibasilar consolidation. No definite mass seen. CT head with no intracranial abnormalities. Chest x-ray reviewed 12/30/2021. Evidence of COPD. Volume loss in the left lower lobe suspect combination of pleural effusion and infiltrate Impression . 1. Acute on chronic hypercapnic respiratory failure secondary to acute exacerbation of chronic obstructive pulmonary disease. Patient had worsening hypoxia and hypercapnia on night of 12/30/2021. Extubated 01/03/2022 2. Left lower lobe pneumonia. 3. Encephalopathy secondary to hypercapnia. 4. Severe hyponatremia. Improved. No evidence of any lung malignancy. 5. Suspected underlying severe chronic obstructive pulmonary disease. 6. Abnormal CT chest with bibasilar consolidation/atelectasis.. No definite mass seen. Plan . Updated 01/04/2022. Continue nasal cannula during the day. BiPAP at night Bronchodilators Continue steroids, with slow taper, currently on daily dosing Continue antibiotics Follow nephrology recommendations DVT/GI prophylaxis PT/OT/ST Discussed with RN Per my long discussion with patient's father yesterday, patient is DNR. Transfer to the floor. Updated 01/03/2022 Continue current ventilatory support with assist control mode 40%, patient tolerated CPAP today, proceed with extubation, discussed at length with WAGNER/jose a Breen who does not want to proceed with reintubation should the patient experience respiratory failure again BiPAP at night Bronchodilators Continue steroids, with slow taper, currently on daily dosing Continue antibiotics Follow nephrology recommendations DVT/GI prophylaxis PT/OT/ST Discussed with RN and RT Patient is a DO NOT RESUSCITATE Critical care time 30 minutes YANE AVILA MD Jan 04, 2022 10:51
--- NOTE | 2022-01-04 16:22 | NUR ---
SS following up with discharge planning. SS reviewed pt chart and discussed with pt RN. Pt is LTC resident from [facility] in [place], ; fax [phone]. Pt is currently requiring oxygen at one liter nasal canula. COVID19 negative. Pt on IV Solu-Medrol and IV Cefepime. PT/OT recommended detention unit. PO diet. Clinical updates phoned and faxed to [facility]. Packet placed on chart. SS will continue to follow for discharge planning.
[2022-01-04] MEDS ORDERED: MORPHINE SULFATE 4 MG/ML INJ. IV PRN ×2 (17:30→17:45)
[2022-01-04] MEDS: DEXMEDETOMIDINE 400 MCG in IV NORMAL SALINE 100ML 96 ML IV PRN (17:48)
--- NOTE | 2022-01-04 18:31 | NUR ---
Around 1705, walked into patient's room and he is in the chair actively having a seizure for about 30 seconds. Patient stopped breathing, SPO2 dropped to 22% and HR dropped from the 120s to the 70s. Patient DNR/DNI, placed on bipap. After seizure, patient's breathing pattern was still not appropriate, had some arm twitching but otherwise was completely obtunded in his postictal state. ALYSA Keller, notified patient's father of seizure activity and unresponsiveness, asked if he wanted us to continue with the bipap or help him be comfortable. Patient's father said he and the patient had talked earlier about what further measures he wanted and the patient said no further aggressive measures, so the father wanted us to keep him comfortable. Notified Dr. Pérez, orders received.
[2022-01-04] MEDS: FAMOTIDINE 20 MG/2 ML VIAL IVP SCH (21:00)
[2022-01-04] MEDS: ENOXAPARIN 40 MG/0.4 ML SYRINGE. SQ SCH (21:00)
--- NOTE | 2022-01-05 00:39 | NUR ---
Pt TX from ICU to 408. Reported received from ALYSA Manrique. Pt on floor at 2565.
[2022-01-05 03:00] VITALS: BP 109/65
[2022-01-05] MEDS: CEFEPIME HCL IV Push 1 GM VIAL. IVP SCH (05:51)
--- NOTE | 2022-01-05 06:13 | PDOC ---
PULMONARY PROGRESS NOTES DATE: 01/05/22 TIME: 06:12 Subjective on 02 2 lpm Extubated 01/03/2022 didnt want bipap appears comfortable had sz last night DNR DNI will go on comfort care today per rn Vitals Vital Signs Date Time Temp Pulse Resp B/P (MAP) Pulse Ox O2 Delivery O2 Flow Rate FiO2 01/05/22 03:00 121 20 109/65 (80) 92 Nasal Cannula 2.0 01/04/22 23:25 97.9 97.9 Comments Remains intubated General: Alert, No acute distress HEENT: Other Lungs: Crackles Cardiovascular: S1, S2 Abdomen: Soft, Non-tender, Other Extremities: No Edema Skin: Warm Labs Laboratory Tests Test 01/03/22 08:25 01/03/22 09:35 01/04/22 04:40 01/04/22 14:50 O2 Saturation 96 % (92-99) 94 % (92-99) Arterial Blood pH 7.49 (7.35-7.45) 7.38 (7.35-7.45) Arterial Blood pCO2 at Patient Temp 44 mmHg (35-46) 60 mmHg (35-46) Arterial Blood pO2 at Patient Temp 82 mmHg (75-108) 81 mmHg (75-108) Arterial Blood HCO3 32 mmol/L (21-28) 34 mmol/L (21-28) Arterial Blood Base Excess 8 mmol/L (-3-3) 8 mmol/L (-3-3) FiO2 40% ac 14 500 5 35% ps 10 peep 5 Sodium Level 136 mmol/L (136-145) Potassium Level 2.8 mmol/L (3.5-5.1) 3.7 mmol/L (3.5-5.1) Chloride Level 99 mmol/L (98-107) Carbon Dioxide Level 33 mmol/L (21-32) Anion Gap 4 (6-14) Blood Urea Nitrogen 13 mg/dL (8-26) Creatinine 0.5 mg/dL (0.7-1.3) Estimated GFR (Cockcroft-Gault) 171.4 Glucose Level 85 mg/dL (70-99) Calcium Level 7.6 mg/dL (8.5-10.1) Laboratory Tests Test 01/04/22 14:50 Potassium Level 3.7 mmol/L (3.5-5.1) Medications Active Scripts Medications Dose Route/Sig Max Daily Dose Days Date Category Dose Instructions Amlodipine Besylate 10 Mg Tablet 10 Mg PO DAILY 12/30/21 Reported Metoprolol Succinate ( Xl ) (Metoprolol Succinate) 25 Mg Tab.er.24h 12.5 Mg PO DAILY 30 02/02/21 Rx Atorvastatin Calcium 40 Mg Tablet 80 Mg PO QHS 30 02/02/21 Rx Proair Hfa (Albuterol Sulfate) 8.5 Gm Hfa.aer.ad 2.5 Mg NEB PRN Q4HRS PRN 30 02/02/21 Rx Multi Vitamin Daily (Multivitamin) 1 Each Tablet 1 Tab PO DAILY 30 01/30/21 Reported Lisinopril 40 Mg Tablet 40 Mg PO DAILY 01/30/21 Reported Famotidine 20 Mg Tablet 20 Mg PO BID 01/30/21 Reported Combivent Respimat Inhal (Ipratropium/Albuterol Sulfate) 4 Gm Aer.w.adap 1 Inh IH QID 01/30/21 Reported Biofreeze (Menthol) 118 Ml Gel..ml. 1 Keri TP QID 7 01/30/21 Reported Vitamin B-1 (Thiamine Mononitrate) 100 Mg Tablet 100 Mg PO DAILY 30 11/16/20 Rx Invega Sustenna (Paliperidone Palmitate) 117 Mg/0.75 Ml Disp.syrin 0 IM QMONTH 30 11/16/20 Rx Next dose 11/21/[address] chest reviewed dated 12/31/2021. Bibasilar consolidation. No definite mass seen. CT head with no intracranial abnormalities. Chest x-ray reviewed 12/30/2021. Evidence of COPD. Volume loss in the left lower lobe suspect combination of pleural effusion and infiltrate Impression . 1. Acute on chronic hypercapnic respiratory failure secondary to acute exacerbation of chronic obstructive pulmonary disease. Patient had worsening hypoxia and hypercapnia on night of 12/30/2021. Extubated 01/03/2022 2. Left lower lobe pneumonia. 3. Encephalopathy secondary to hypercapnia. 4. Severe hyponatremia. Improved. No evidence of any lung malignancy. 5. Suspected underlying severe chronic obstructive pulmonary disease. 6. Abnormal CT chest with bibasilar consolidation/atelectasis.. No definite mass seen. Plan . Updated 01/05/2022. Continue nasal cannula during the day. BiPAP at night refuses Bronchodilators solumedrol 40 mg daily Continue antibiotics Follow nephrology recommendations DVT/GI prophylaxis PT/OT/ST DNR DNI going on comfort care today will sign off but available for any help Discussed with RN Updated 01/04/2022. Continue nasal cannula during the day. BiPAP at night Bronchodilators Continue steroids, with slow taper, currently on daily dosing Continue antibiotics Follow nephrology recommendations DVT/GI prophylaxis PT/OT/ST Discussed with RN Per my long discussion with patient's father yesterday, patient is DNR. Transfer to the floor. Updated 01/03/2022 Continue current ventilatory support with assist control mode 40%, patient tolerated CPAP today, proceed with extubation, discussed at length with DPOA/father Jamshid who does not want to proceed with reintubation should the patient experience respiratory failure again BiPAP at night Bronchodilators Continue steroids, with slow taper, currently on daily dosing Continue antibiotics Follow nephrology recommendations DVT/GI prophylaxis PT/OT/ST Discussed with RN and RT Patient is a DO NOT RESUSCITATE Critical care time 30 minutes KERI LUCAS MD Jan 05, 2022 06:13
[2022-01-05 07:00] VITALS: BP 143/57
[2022-01-05] MEDS: MUPIROCIN 2 % OINTMENT 22GM TUBE. NS SCH (09:00)
[2022-01-05] MEDS: methylPREDNISolone SOD SUCC PF 40 MG/ML VIAL. IV SCH (09:14)
[2022-01-05 11:22] VITALS: BP 134/87
[2022-01-05] MEDS ORDERED: LORA2ORA7 PO (11:43)
[2022-01-05] MEDS ORDERED: MOR20SL SL (11:43)
[2022-01-05] MEDS ORDERED: ONDA4TAB12 PO (11:43)
--- NOTE | 2022-01-05 12:01 | SNU/HH DC ---
DISCHARGE ORDERS DISCHARGE INFORMATION: DISCHARGE DATE: Jan 05, 2022 FINAL DIAGNOSIS Problems Medical Problems: (1) COPD exacerbation Status: Acute CONDITION ON DISCHARGE: Stable CODE STATUS: Code Status: DNR/DNI NURSING HOME: SNF STAY <30 DAYS: Yes POST DISCHARGE ORDERS: ACTIVITY ORDERS: Activity as tolerated WEIGHT BEARING STATUS: As tolerated DIET AFTER DISCHARGE: Regular WOUND/INCISION CARE: No wound care needed CHECKS AFTER DISCHARGE: CHECKS AFTER DISCHARGE: Check blood press - daily, Check your Temp as needed, Weigh Yourself Daily TREATMENT/EQUIPMENT ORDERS: ADAPTIVE EQUIPMENT NEEDED: None RESPIRATORY EQUIPMENT NEEDED: Nebulizer, MDI DISCHARGE MEDICATIONS: Home Meds Active Scripts Ondansetron (ONDANSETRON ODT) 4 Mg Tab.rapdis, 1 TAB PO PRN Q6-8HRS for n/v, #16 TAB Prov:JUAN RAMOS MD 01/05/22 Lorazepam (LORAZEPAM INTENSOL ) 2 Mg/1 Ml Oral.conc, 2 MG PO PRN Q4HRS PRN for ANXIETY / AGITATION for 10 Days, #100 ML Prov:JUAN RAMOS MD 01/05/22 Morphine Sulfate Conc (ROXANOL CONC ) 20 Mg/1 Ml Solution, 20 MG SL PRN Q4HRS PRN for PAIN CONTROL / AIR HUNGER, #1 BOTTLE 0 Refills Prov:JUAN RAMOS MD 01/05/22 Albuterol Sulfate (Proair Hfa) 8.5 Gm Hfa.aer.ad, 2.5 MG NEB PRN Q4HRS PRN for SHORTNESS OF BREATH for 30 Days, #1 INHALER Prov:NIKKO BROWN III DO 02/02/21 Reported Medications Ipratropium/Albuterol Sulfate (COMBIVENT RESPIMAT INHAL) 4 Gm Aer.w.adap, 1 INH IH QID for COUGH, EACH 01/30/21 Menthol (BIOFREEZE) 118 Ml Gel..ml., 1 SEVEN TP QID for NECK PAIN for 7 Days, #118 ML 0 Refills 01/30/21 Discontinued Reported Medications Amlodipine Besylate (AMLODIPINE BESYLATE) 10 Mg Tablet, 10 MG PO DAILY for htn, TAB 12/30/21 Multivitamin (MULTI VITAMIN DAILY) 1 Each Tablet, 1 TAB PO DAILY for for 30 Days, #30 TAB 0 Refills 01/30/21 Lisinopril (LISINOPRIL) 40 Mg Tablet, 40 MG PO DAILY for FOR HYPERTENSION, #30 TAB 0 Refills 01/30/21 Famotidine (FAMOTIDINE) 20 Mg Tablet, 20 MG PO BID for INDIGESTION, TAB 01/30/21 Discontinued Scripts Metoprolol Succinate (METOPROLOL SUCCINATE ( XL )) 25 Mg Tab.er.24h, 12.5 MG PO DAILY for . for 30 Days, #15 TAB.SR Prov:KEVINNIAL K III DO 02/02/21 Atorvastatin Calcium (ATORVASTATIN CALCIUM) 40 Mg Tablet, 80 MG PO QHS for . for 30 Days, #60 TAB Prov:CASTLE,NIAL K III DO 02/02/21 Thiamine Mononitrate (VITAMIN B-1) 100 Mg Tablet, 100 MG PO DAILY for ETOH abuse for 30 Days, #30 TAB Prov:JUAN PEREIRA MD 11/16/20 Paliperidone Palmitate (INVEGA SUSTENNA) 117 Mg/0.75 Ml Disp.syrin, 0 IM QMONTH for schizophrenia for 30 Days, #1 SYR 0 Refills Next dose 11/21/2020 Prov:JUAN PEREIRA MD 11/16/20 JUAN RAMOS MD Jan 05, 2022 12:01
--- NOTE | 2022-01-05 14:12 | PDOC ---
[facility] [facility] PROGRESS NOTE Date of Service DOS: January 04 late entry Chief Complaint Chief Complaint Assessment/Plan Left-sided atypical pneumonia, possible gram-negative organisms Acute COPD exacerbation Severe hyponatremia Acute electrolyte derangement suggestive of volume depletion History of tobacco misuse History of COPD History of hypertension History of schizophrenia Admit to hospitalist service for further management Pulmonology consult for BiPAP management Nephrology consult for hyponatremia management Hypertonic saline Continue IV fluids IV steroids Empiric IV antibiotics Pending blood cultures Pending Legionella antigen of the urine and MRSA PCR screen Lovenox for DVT prophylaxis Protonix while on steroids GI prophylaxis ADA diet CODE STATUS full Discussed with RN and SW Disposition inpatient management as above DPOA: Father History of Present Illness History of Present Illness 01/04 Evaluate examined at bedside. He was receiving a breathing treatment. He is unable answer any questions could not really understand much of what he was saying. Okay to discharge out of ICU. 01/03 Evaluate examined at bedside. Able to extubate now on nasal cannula. Doing well. Can likely transfer upstairs later. Otherwise continue current plan. 01/02 Patient evaluated examined at bedside. Remains intubated sedated critically ill. Possible chance at weaning trial later. Continue antibiotics. Continue current plan. 40 minutes critical care time 01/01 Patient evaluated examined at bedside. Intubated sedated. Remains critically ill. CT head from yesterday unremarkable. Hyponatremia improving. CT chest showing lung consolidations. Continue cefepime azithromycin. Possible try to wean sedation and see how mental status does. 35 minutes critical care time 12/31 Patient evaluated examined at bedside. Intubated sedated remains critically ill. Continue antibiotics. CT scan ordered for today. 41 minutes critical care time. Vitals/I&O Vitals/I&O: Vital Signs Date Time Temp Pulse Resp B/P (MAP) Pulse Ox O2 Delivery O2 Flow Rate FiO2 01/05/22 11: 97.8 119 22 134/87 (103) 96 Nasal Cannula 2.0 97.8 I & O 01/04/22 01/04/22 01/05/22 15:00 23:00 07:00 Intake Total 23 ml Output Total 400 ml 425 ml 700 ml Balance -400 ml -402 ml -700 ml Physical Exam General: Alert, Cooperative, No acute distress Heart: Regular rate Lungs: Crackles Abdomen: Normal bowel sounds Extremities: No clubbing Skin: No breakdown Labs Labs: Laboratory Tests Test 01/04/22 14:50 Potassium Level 3.7 mmol/L (3.5-5.1) Assessment and Plan Assessmemt and Plan Problems Medical Problems: (1) COPD exacerbation Status: Acute Comment Review of Relevant I have reviewed the following items kye (where applicable) has been applied. Medications: Current Medications Medications (Trade) Dose Ordered Sig/Jean Carlos Route PRN Reason Start Time Stop Time Status Last Admin Dose Admin Morphine Sulfate (Morphine Sulfate) 4 mg PRN Q2HR PRN IV PAIN 01/04/22 17:30 01/04/22 17:43 DC 01/04/22 17:36 Lorazepam (Ativan Inj) 2 mg PRN Q2HR PRN IVP ANXIETY / AGITATION 01/04/22 17:30 01/04/22 17:36 Morphine Sulfate (Morphine Sulfate) 4 mg PRN Q1HR PRN IV PAIN 01/04/22 17:45 01/04/22 17:47 Justifications for Admission Other Justification COPD exacerbation, hyponatremia JUAN RAMOS MD Jan 05, 2022 14:12
--- NOTE | 2022-01-05 17:41 | NUR ---
pt discharged to [facility]. Transported by fire Dept. taken by gerald. Called report to ALYSA Adan at [facility]. patients picc line removed by cameron due to a misunderstanding.
[2022-01-05] MEDS ORDERED: FAMOTIDINE 20 MG TABLET. PO SCH (21:00)
--- NOTE | 2022-01-06 16:01 | PDOC3 ---
[facility]-Discharge Summary Date of Admission: Date of Admission: Dec 29, 2021 Date of Discharge: Date of Discharge: Jan 05, 2022 Admission Diagnosis: Admitting Diagnosis: COPD, respiratoyr failure Hospital Course: Hospital Course: coef Complaint Assessment/Plan Left-sided atypical pneumonia, possible gram-negative organisms Acute COPD exacerbation Severe hyponatremia Acute electrolyte derangement suggestive of volume depletion History of tobacco misuse History of COPD History of hypertension History of schizophrenia Admit to hospitalist service for further management Pulmonology consult for BiPAP management Nephrology consult for hyponatremia management Hypertonic saline Continue IV fluids IV steroids Empiric IV antibiotics Pending blood cultures Pending Legionella antigen of the urine and MRSA PCR screen Lovenox for DVT prophylaxis Protonix while on steroids GI prophylaxis ADA diet CODE STATUS full Discussed with RN and SW Disposition inpatient management as above DPOA: Father History of Present Illness History of Present Illness 01/05 Evaluate examined at bedside. In bed. Discussed with family and they have elected to go comfort measures for the patient. He can discharge back to facility today. Greater than 30 minutes on discharge. 21 minutes advance care planning. 01/04 Evaluate examined at bedside. He was receiving a breathing treatment. He is unable answer any questions could not really understand much of what he was saying. Okay to discharge out of ICU. 01/03 Evaluate examined at bedside. Able to extubate now on nasal cannula. Doing well. Can likely transfer upstairs later. Otherwise continue current plan. 01/02 Patient evaluated examined at bedside. Remains intubated sedated critically ill. Possible chance at weaning trial later. Continue antibiotics. Continue current plan. 40 minutes critical care time 01/01 Patient evaluated examined at bedside. Intubated sedated. Remains critically ill. CT head from yesterday unremarkable. Hyponatremia improving. CT chest showing lung consolidations. Continue cefepime azithromycin. Possible try to wean sedation and see how mental status does. 35 minutes critical care time 12/31 Patient evaluated examined at bedside. Intubated sedated remains critically ill. Continue antibiotics. CT scan ordered for today. 41 minutes critical care time. Disposition: Disposition/Orders: D/C to Another Facility Activity: Activity: Resume previous activity Diet: Diet: Regular Medications: Home Meds Active Scripts Ondansetron (ONDANSETRON ODT) 4 Mg Tab.rapdis, 1 TAB PO PRN Q6-8HRS for n/v, #16 TAB Prov:JUAN RAMOS MD 01/05/22 Lorazepam (LORAZEPAM INTENSOL ) 2 Mg/1 Ml Oral.conc, 2 MG PO PRN Q4HRS PRN for ANXIETY / AGITATION for 10 Days, #100 ML Prov:JUAN RAMOS MD 01/05/22 Morphine Sulfate Conc (ROXANOL CONC ) 20 Mg/1 Ml Solution, 20 MG SL PRN Q4HRS PRN for PAIN CONTROL / AIR HUNGER, #1 BOTTLE 0 Refills Prov:JUAN RAMOS MD 01/05/22 Albuterol Sulfate (Proair Hfa) 8.5 Gm Hfa.aer.ad, 2.5 MG NEB PRN Q4HRS PRN for SHORTNESS OF BREATH for 30 Days, #1 INHALER Prov:KEVINNIAL K III DO 02/02/21 Reported Medications Ipratropium/Albuterol Sulfate (COMBIVENT RESPIMAT INHAL) 4 Gm Aer.w.adap, 1 INH IH QID for COUGH, EACH 01/30/21 Menthol (BIOFREEZE) 118 Ml Gel..ml., 1 SEVEN TP QID for NECK PAIN for 7 Days, #118 ML 0 Refills 01/30/21 Discontinued Reported Medications Amlodipine Besylate (AMLODIPINE BESYLATE) 10 Mg Tablet, 10 MG PO DAILY for htn, TAB 12/30/21 Multivitamin (MULTI VITAMIN DAILY) 1 Each Tablet, 1 TAB PO DAILY for for 30 Days, #30 TAB 0 Refills 01/30/21 Lisinopril (LISINOPRIL) 40 Mg Tablet, 40 MG PO DAILY for FOR HYPERTENSION, #30 TAB 0 Refills 01/30/21 Famotidine (FAMOTIDINE) 20 Mg Tablet, 20 MG PO BID for INDIGESTION, TAB 01/30/21 Discontinued Scripts Metoprolol Succinate (METOPROLOL SUCCINATE ( XL )) 25 Mg Tab.er.24h, 12.5 MG PO DAILY for . for 30 Days, #15 TAB.SR Prov:CASTLE,NIAL K III DO 02/02/21 Atorvastatin Calcium (ATORVASTATIN CALCIUM) 40 Mg Tablet, 80 MG PO QHS for . for 30 Days, #60 TAB Prov:CASTLE,NIAL K III DO 02/02/21 Thiamine Mononitrate (VITAMIN B-1) 100 Mg Tablet, 100 MG PO DAILY for ETOH abuse for 30 Days, #30 TAB Prov:JUAN PEREIRA MD 11/16/20 Paliperidone Palmitate (INVEGA SUSTENNA) 117 Mg/0.75 Ml Disp.syrin, 0 IM QMONTH for schizophrenia for 30 Days, #1 SYR 0 Refills Next dose 11/21/2020 Prov:JUAN PEREIRA MD 11/16/20 Scheduled Ipratropium/Albuterol Sulfate (Combivent Respimat Inhal), 1 INH IH QID, (Reported) Menthol (Biofreeze), 1 SEVEN TP QID, (Reported) Ondansetron (Ondansetron Odt), 1 TAB PO PRN Q6-8HRS Scheduled PRN Albuterol Sulfate (Proair Hfa), 2.5 MG NEB PRN Q4HRS PRN for SHORTNESS OF BREATH Lorazepam (Lorazepam Intensol ), 2 MG PO PRN Q4HRS PRN for ANXIETY / AGITATION Morphine Sulfate Conc (Roxanol Conc ), 20 MG SL PRN Q4HRS PRN for PAIN CONTROL / AIR HUNGER Discontinued Medications Amlodipine Besylate (Amlodipine Besylate), 10 MG PO DAILY, (Reported) Atorvastatin Calcium (Atorvastatin Calcium), 80 MG PO QHS Famotidine (Famotidine), 20 MG PO BID, (Reported) Lisinopril (Lisinopril), 40 MG PO DAILY, (Reported) Metoprolol Succinate (Metoprolol Succinate ( Xl )), 12.5 MG PO DAILY Multivitamin (Multi Vitamin Daily), 1 TAB PO DAILY, (Reported) Paliperidone Palmitate (Invega Sustenna), 0 IM QMONTH Thiamine Mononitrate (Vitamin B-1), 100 MG PO DAILY Justicifation of Admission Dx: Justifications for Admission: Justification of Admission Dx: Yes JUAN RAMOS MD Jan 06, 2022 16:01
== END 2022-01-05 13:30 | DRG 208 ==
LOC: ER 18:18 → 5 NORTH 18:45 → 1 WEST ICU 12-30 14:57 → 4 NORTH 01-04 23:25
PROVIDERS: ADMIT Internal Medicine; ATTEND Internal Medicine
PROC: 0BH17EZ Insertion of Endotracheal Airway into Trachea, Via Natural or Artificial Opening (ICD-10-PCS; 2021-12-29)
PROC: 5A1945Z Respiratory Ventilation, 24-96 Consecutive Hours (ICD-10-PCS; principal; 2021-12-30)
PROC: 5A09357 Assistance with Respiratory Ventilation, Less than 24 Consecutive Hours, Continuous Positive Airway Pressure (ICD-10-PCS; 2021-12-30)
PROC: 02HV33Z Insertion of Infusion Device into Superior Vena Cava, Percutaneous Approach (ICD-10-PCS; 2021-12-31)
PROC: B548ZZA Ultrasonography of Superior Vena Cava, Guidance (ICD-10-PCS; 2021-12-31)
PROC: 5A0935A Assistance with Respiratory Ventilation, Less than 24 Consecutive Hours, High Flow/Velocity Cannula (ICD-10-PCS; 2022-01-03)
PROC: 5A0935A Assistance with Respiratory Ventilation, Less than 24 Consecutive Hours, High Flow/Velocity Cannula (ICD-10-PCS; 2022-01-04)
DX: J15.6 Pneumonia due to other Gram-negative bacteria (principal); G93.41 Metabolic encephalopathy; J96.22 Acute and chronic respiratory failure with hypercapnia; J96.21 Acute and chronic respiratory failure with hypoxia; E22.2 Syndrome of inappropriate secretion of antidiuretic hormone; J44.0 Chronic obstructive pulmonary disease with (acute) lower respiratory infection; J44.1 Chronic obstructive pulmonary disease with (acute) exacerbation; J98.11 Atelectasis; E87.6 Hypokalemia; F17.210 Nicotine dependence, cigarettes, uncomplicated; F20.9 Schizophrenia, unspecified; I11.0 Hypertensive heart disease with heart failure; I50.9 Heart failure, unspecified; Z66 Do not resuscitate; Z82.49 Family history of ischemic heart disease and other diseases of the circulatory system; Z82.5 Family history of asthma and other chronic lower respiratory diseases; Z99.81 Dependence on supplemental oxygen; K21.9 Gastro-esophageal reflux disease without esophagitis
CPT/HCPCS: 36415; 36569; 36600; 70450; 71045; 71250; 80048; 80053; 80307; 81001; 82436; 82805; 82962; 83735; 83880; 83930; 83935; 84100; 84132; 84133; 84300; 84484; 84550; 85007; 85025; 87426; 87449; 87641; 87804; 93005; 94002; 94003; 94640; 94660; 94760; 96361; 96374; C9113; J0330; J0456; J0692; J1650; J2060; J2250; J2270; J2704; J2920; J2930; J3010; J3475; J3480; J3490; J7030; J7050; U0003; 92610-GN; 97530-GO; 97530-GP; 99285-25; G0378